=== PATIENT | male | born 1965 | race Caucasian/White ===

== ENCOUNTER 2017-08-19 20:11 | Emergency (ER) | payer MEDICAID ==
[2017-08-19 20:22] VITALS: BP 152/94
[2017-08-19] MEDS ORDERED: MORPHINE SULFATE 10 MG/ML INJ IV ONE (20:32)
[2017-08-19] MEDS ORDERED: NORMAL SALINE 1000 ML 1,000 ML IV ONE (20:32)
--- NOTE | 2017-08-19 20:34 | ER Document Report ---
ED Medical Screen (RME) - General Chief Complaint: Abdominal Pain Stated Complaint: STOMACH PAIN Time Seen by Provider: 08/19/17 20:32 Notes: Patient states she has a history of diverticulitis. He states the last 2 days she has had severe left lower quadrant pain with some dark tarry stool and diarrhea. He is also had some decreased appetite. - Related Data Allergies/Adverse Reactions: codeine [From Tylenol-Codeine #3] Allergy (Verified 08/19/17 20:14) hydrocodone Allergy (Verified 08/19/17 20:14) Physical Exam - Vital signs Vitals: Temp Pulse Resp BP Pulse Ox 99.0 F 104 H 18 152/94 H 96 08/19/17 20:19 08/19/17 20:19 08/19/17 20:19 08/19/17 20:19 08/19/17 20:19 Course - Vital Signs Vital signs: Temp Pulse Resp BP Pulse Ox 99.0 F 104 H 18 152/94 H 96 08/19/17 20:19 08/19/17 20:19 08/19/17 20:19 08/19/17 20:19 08/19/17 20:19
[2017-08-19 21:14] LABS: ABSOLUTE BASOPHILS # (AUTO) 0.1 10^3/uL (0.0-0.2); ABSOLUTE EOSINOPHILS # (AUTO) 0.2 10^3/uL (0.0-0.6); ABSOLUTE LYMPHOCYTES (AUTO) 2.1 10^3/uL (0.5-4.7); ABSOLUTE MONOCYTES (AUTO) 1.1 10^3/uL (0.1-1.4); ABSOLUTE NEUT (AUTO) 11.7 10^3/uL (1.7-8.2); BASOPHILS % (AUTO) 0.4 % (0-2); EOSINOPHILS % (AUTO) 1.3 % (0-6); HEMATOCRIT 45.7 % (37.9-51.0); HEMOGLOBIN 15.2 g/dL (13.5-17.0); LYMPHOCYTES % (AUTO) 13.8 % (13-45); MEAN CORPUSCULAR HEMOGLOBIN 28.3 pg (27.0-33.4); MEAN CORPUSCULAR HGB CONC 33.3 g/dL (32.0-36.0); MEAN CORPUSCULAR VOLUME 85 fl (80-97); MONOCYTES % (AUTO) 7.4 % (3-13); PLATELET COUNT 289 10^3/uL (150-450); RED BLOOD COUNT 5.37 10^6/uL (4.35-5.55); RED CELL DISTRIBUTION WIDTH 14.8 % (11.5-14.0); SEGMENTED NEUTROPHILS % (AUTO) 77.1 % (42-78); TOTAL CELLS COUNTED % (AUTO) 100 %; WHITE BLOOD COUNT 15.2 10^3/uL (4.0-10.5)
[2017-08-19 21:28] LABS: ALANINE AMINOTRANSFERASE 37 U/L (21-72); ALBUMIN 4.2 g/dL (3.5-5.0); ALKALINE PHOSPHATASE 76 U/L (38-126); ANION GAP 13 (5-19); ASPARTATE AMINO TRANSFERASE 22 U/L (17-59); BILIRUBIN,DIRECT 0.4 mg/dL (0.0-0.4); BILIRUBIN,TOTAL 0.7 mg/dL (0.2-1.3); BLOOD UREA NITROGEN 15 mg/dL (7-20); CALCIUM 9.8 mg/dL (8.4-10.2); CARBON DIOXIDE 28 mmol/L (22-30); CHLORIDE 104 mmol/L (98-107); GLUCOSE 108 mg/dL (75-110); POTASSIUM 4.6 mmol/L (3.6-5.0); SODIUM 144.5 mmol/L (137-145); TOTAL PROTEIN 7.7 g/dL (6.3-8.2)
== END 2017-08-19 21:51 | disposition left against medical advice (07) ==
LOC: ER 20:11
DX: Z53.21 Procedure and treatment not carried out due to patient leaving prior to being seen by health care provider (principal); R10.32 Left lower quadrant pain; R19.7 Diarrhea, unspecified; R63.0 Anorexia
CPT/HCPCS: 99281; 36415; 85025; 80053; 74177; J2270; J7030

== ENCOUNTER 2017-08-19 22:56 | Emergency (ER) | payer MEDICAID ==
[2017-08-19] MEDS ORDERED: NORMAL SALINE 1000 ML 1,000 ML IV ONE (22:59)
[2017-08-19 23:19] VITALS: BP 143/94
--- NOTE | 2017-08-20 00:49 | RADIOLOGY REPORT (SQ) ---
EXAM DESCRIPTION: CT ABDOMEN AND PELVIS WITH CONTRAST CLINICAL HISTORY: LLQ pain COMPARISON: None Available. TECHNIQUE: CT of the abdomen and pelvis performed following IV administration of 85 mL of Isovue-370. Delayed images obtained. DLP: 3502.24 mGycm FINDINGS: Lung Bases: The visualized lung bases are clear. Bones: No destructive bone lesions identified. Abdomen: Liver: The liver has normal size and decreased density. No intrahepatic mass or biliary dilatation. Gallbladder: No calcified gallstones. Spleen, Pancreas, and Adrenal Glands: The spleen, pancreas, and adrenal glands are unremarkable. Kidneys: The kidneys have normal size and contour without evidence of solid mass or hydronephrosis. Vasculature: The aorta and IVC have normal caliber and position. The portal vein is patent. The proximal visceral and renal arteries are patent. Stomach: The stomach and duodenum have normal course. Other: No definite free intraperitoneal air. Catheter mildly enlarged left inguinal and left mesenteric lymph nodes are likely reactive. Pelvis: Bladder: Urinary bladder is unremarkable. Bowel: No dilated loops of large or small bowel. Short segment of wall thickening and pericolic fat stranding of the proximal sigmoid colon with diffuse diverticula throughout the colon. No well-circumscribed pericolic fluid collection. Appendix: Normal appendix. Pelvis: Prostate is not enlarged. IMPRESSION: 1. Findings compatible with acute diverticulitis of the proximal sigmoid colon. No well-circumscribed pericolic fluid collection to suggest abscess formation at this time. 2. Hepatic steatosis. This exam was performed according to our departmental dose-optimization program, which includes automated exposure control, adjustment of the mA and/or kV according to patient size and/or use of iterative reconstruction technique.
--- NOTE | 2017-08-20 00:51 | ER Document Report ---
ED GI/ - General Chief Complaint: Abdominal Pain Stated Complaint: ABDOMINAL PAIN Time Seen by Provider: 08/19/17 22:59 Mode of Arrival: Ambulatory Information source: Patient - HPI Patient complains to provider of: Abdominal pain Onset: Other - 4 days Timing/Duration: Gradual, Persistent Quality of pain: Achy, Cramping, Pressure Severity at maximum: Moderate Severity in ED: Moderate Pain Level: 4 Location: LLQ, RLQ Associated symptoms: Diarrhea, Dysuria, Nausea Exacerbated by: Denies Relieved by: Denies Similar symptoms previously: Yes Recently seen / treated by doctor: No Notes: 08/20/17 00:52 Patient is a 52-year-old male presenting to the emergency room today complaining of lower abdominal pain that comes in waves, is consistent with cramping and pressure, as well as dark stools, and dysuria with pink tinge to his urine, symptoms have been going on for the past 4 days and have worsened today, he denies any vomiting, no fevers, history of diverticulitis with similar symptoms in the past - Related Data Allergies/Adverse Reactions: codeine [From Tylenol-Codeine #3] Allergy (Verified 08/19/17 20:14) hydrocodone Allergy (Verified 08/19/17 20:14) Past Medical History - General Information source: Patient - Social History Smoking Status: Unknown if Ever Smoked Family History: Reviewed & Not Pertinent Renal/ Medical History: Denies: Hx Peritoneal Dialysis Review of Systems - Review of Systems Constitutional: No symptoms reported EENT: No symptoms reported Cardiovascular: No symptoms reported Respiratory: No symptoms reported Gastrointestinal: See HPI Genitourinary: See HPI Male Genitourinary: No symptoms reported Musculoskeletal: No symptoms reported Skin: No symptoms reported Hematologic/Lymphatic: No symptoms reported Neurological/Psychological: No symptoms reported -: Yes All other systems reviewed and negative Physical Exam - Vital signs Vitals: Temp Pulse Resp BP Pulse Ox 97.8 F 108 H 18 143/94 H 95 08/19/17 23:16 08/19/17 23:16 08/19/17 23:16 08/19/17 23:16 08/19/17 23:16 Interpretation: Normal - General General appearance: Appears well, Alert - HEENT Head: Normocephalic, Atraumatic Eyes: Normal Pupils: PERRL - Respiratory Respiratory status: No respiratory distress Chest status: Nontender Breath sounds: Normal Chest palpation: Normal - Cardiovascular Rhythm: Regular Heart sounds: Normal auscultation Murmur: No - Abdominal Inspection: Obese Distension: No distension Bowel sounds: Normal Tenderness: Tender - Mild tenderness across lower abdomen Organomegaly: No organomegaly - Back Back: Normal, Nontender - Extremities General upper extremity: Normal inspection, Nontender, Normal color, Normal ROM , Normal temperature General lower extremity: Normal inspection, Nontender, Normal color, Normal ROM , Normal temperature, Normal weight bearing. No: Ranjeet's sign - Neurological Neuro grossly intact: Yes Cognition: Normal Orientation: AAOx4 Breanna Coma Scale Eye Opening: Spontaneous Breanna Coma Scale Verbal: Oriented [place] Coma Scale Motor: Obeys Commands [place] Coma Scale Total: 15 Speech: Normal Motor strength normal: LUE, RUE, LLE, RLE Sensory: Normal - Psychological Associated symptoms: Normal affect, Normal mood - Skin Skin Temperature: Warm Skin Moisture: Dry Skin Color: Normal Course - Re-evaluation Re-evalutation: 08/20/17 00:54 Patient was seen in the emergency room earlier today, had to leave secondary to family emergency, has returned to have CT scan done, consistent with diverticulitis, will be started on antibiotics and be provided with instructions for follow-up, advised to return if symptoms worsen, patient acknowledges understanding and agreement with this plan - Vital Signs Vital signs: Temp Pulse Resp BP Pulse Ox 97.8 F 108 H 18 143/94 H 95 08/19/17 23:16 08/19/17 23:16 08/19/17 23:16 08/19/17 23:16 08/19/17 23:16 - Laboratory Laboratory results interpreted by me: 08/20/17 01:00 Urine Urobilinogen 2.0 H - Diagnostic Test Radiology reviewed: Image reviewed, Reports reviewed Discharge - Discharge Clinical Impression: Acute diverticulitis Condition: Stable Disposition: HOME, SELF-CARE Instructions: Diverticulitis ([facility]) Additional Instructions: Follow up with your primary care provider in one to 2 days. Return to the emergency room immediately if symptoms worsen or any additional concerns. Prescriptions: Ciprofloxacin HCl [Cipro 500 mg Tablet] 500 mg PO BID #20 tablet Hydrocodone/Acetaminophen [Hydrocodon-Acetaminophen 5-325] 1 each PO Q6 #20 tablet Metronidazole [Flagyl 500 mg Tablet] 500 mg PO TID #30 tablet Oxycodone HCl/Acetaminophen [Percocet 5-325 mg Tablet] 1 - 2 tab PO ASDIR PRN # 15 tablet PRN Reason:
[2017-08-20] MEDS ORDERED: METRONIDAZOLE 500 MG TABLET PO ONE (00:55)
[2017-08-20] MEDS ORDERED: CIPROFLOXACIN HCL 500 MG TABLET PO ONE (00:55)
[2017-08-20] MEDS ORDERED: HYDROCODONE/ACETAMINOPHEN 5-325 MG TABLET PO ONE (00:58)
[2017-08-20 01:35] LABS: APPEARANCE,URINE CLEAR; BILIRUBIN,URINE NEGATIVE (NEGATIVE); COLOR,URINE YELLOW; GLUCOSE, URINE NEGATIVE (NEGATIVE); KETONES,URINE NEGATIVE (NEGATIVE); LEUKOCYTE ESTERASE,URINE NEGATIVE (NEGATIVE); NITRITE,URINE NEGATIVE (NEGATIVE); PROTEIN,URINE NEGATIVE (NEGATIVE)
[2017-08-20 01:41] LABS: URINE SPECIFIC GRAVITY > 1.060
[2017-08-20] MEDS ORDERED: HYDROCODONE/ACETAMINOPHEN 5-325 MG (6 TAB/ER DISP) PO PRN (01:48)
== END 2017-08-20 02:13 | disposition home or self-care (01) ==
LOC: ER 22:56
DX: K57.92 Diverticulitis of intestine, part unspecified, without perforation or abscess without bleeding (principal); R10.30 Lower abdominal pain, unspecified
CPT/HCPCS: 99284; 96360; 81001; 74177; J3490 ×2; J7030

== ENCOUNTER 2017-09-15 19:04 | Emergency (ER) | payer MEDICAID ==
[2017-09-15 19:09] VITALS: BP 143/87
[2017-09-15] MEDS ORDERED: DEXAMETHASONE SOD PHOS INJ 10 MG/1 ML VIAL IM ONE (20:12)
[2017-09-15] MEDS ORDERED: KETOROLAC TROMETHAMINE INJ/PF 30 MG/1 ML SDV IM ONE (20:12)
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
--- NOTE | 2017-09-15 21:15 | RADIOLOGY REPORT (SQ) ---
EXAM DESCRIPTION: T SPINE AP/LAT COMPLETED DATE/TIME: 09/15/2017 8:32 pm REASON FOR STUDY: Exacerbation of chronic back pain COMPARISON: None. NUMBER OF VIEWS: Two views. TECHNIQUE: AP and lateral radiographic images acquired of the thoracic spine. LIMITATIONS: None. FINDINGS: MINERALIZATION: Normal. ALIGNMENT: Normal. No scoliosis. VERTEBRAE: No fracture or bone lesion. Maintained height, normal segmentation. DISCS: Multilevel disc space narrowing with osteophytes. HARDWARE: None in the spine. MEDIASTINUM AND SOFT TISSUES: Normal heart size and aortic contour. No soft tissue abnormality. VISUALIZED LUNG VALVERDE: Clear. OTHER: No other significant finding. IMPRESSION: SPONDYLOSIS WITHOUT BONE LESION OR FRACTURE. TECHNICAL DOCUMENTATION: JOB ID: [id number] [employer]- All Rights Reserved Reading location - IP/workstation name: [email or web address]
--- NOTE | 2017-09-15 21:17 | RADIOLOGY REPORT (SQ) ---
EXAM DESCRIPTION: L SPINE WHOLE COMPLETED DATE/TIME: 09/15/2017 8:32 pm REASON FOR STUDY: Exacerbation of chronic back pain COMPARISON: 08/20/2017 CT NUMBER OF VIEWS: Five views including obliques. TECHNIQUE: AP, lateral, oblique, and sacral radiographic images acquired of the lumbar spine. LIMITATIONS: None. FINDINGS: MINERALIZATION: Normal. SEGMENTATION: Normal. No transitional anatomy. ALIGNMENT: Minimal degenerative anterolisthesis of L4 on L5. VERTEBRAE: Maintained height. No fracture or worrisome bone lesion. DISCS: Multilevel disc space narrowing with osteophytes. POSTERIOR ELEMENTS: Pedicles and facets are intact. No pars defect or posterior arch defects. Facet arthropathy is present. HARDWARE: None in the spine. PARASPINAL SOFT TISSUES: Normal. PELVIS: Intact as visualized. No fractures or worrisome bone lesions. SI joints intact. OTHER: No other significant finding. IMPRESSION: SPONDYLOSIS WITHOUT BONE LESION OR FRACTURE. TECHNICAL DOCUMENTATION: JOB ID: [id number] [employer]- All Rights Reserved Reading location - IP/workstation name: [email or web address]
== END 2017-09-15 21:40 | disposition home or self-care (01) ==
LOC: ER 19:04
DX: M54.6 Pain in thoracic spine (principal); M54.5 Low back pain; G89.29 Other chronic pain; Z88.6 Allergy status to analgesic agent; I10 Essential (primary) hypertension
CPT/HCPCS: 99283; 96372; 72110; 72070; J1885; J1100

== ENCOUNTER 2017-09-29 12:37 | Emergency (ER) | payer MEDICAID ==
[2017-09-29 12:45] VITALS: BP 158/102
[2017-09-29] MEDS ORDERED: KETOROLAC TROMETHAMINE INJ/PF 30 MG/1 ML SDV IM ONE (12:56)
--- NOTE | 2017-09-29 12:59 | ER Document Report ---
HPI - HPI Pain Level: 3 Notes: Patient is a 52-year-old male who presents to the ED complaining of right lateral hand pain status post injury 2 days ago. Patient states he is trying to break up a dog fight when he was punching his dog. His dog. He denies being bit or scratched at the time. Patient states that he has pain in and surrounding his thumb. Patient states that movement of the thumb makes the pain worse. He has been using a splint which does seem to help a little bit. He has not noticed any obvious swelling, bruising, or redness. He has no other concerns or complaints at this time. Denies any headache, fever, neck pain, URI , sore throat, chest pain, palpitations, syncope, cough, shortness of breath, wheeze, dyspnea, abdominal pain, nausea/vomiting/diarrhea, urinary retention, dysuria, hematuria, numbness/tingling, muscle paralysis, or rash. - ROS Systems Reviewed and Negative: Yes All other systems reviewed and negative Past Medical History - Social History Smoking Status: Never Smoker Family History: Arthritis, CAD, COPD, CVA, Malignancy - Past Medical History Cardiac Medical History: Reports: Hx Hypertension Neurological Medical History: Reports: Hx Migraine Renal/ Medical History: Reports: Hx Testicular Torsion. Denies: Hx Peritoneal Dialysis GI Medical History: Reports: Hx Diverticulitis, Hx Gastritis, Hx Ulcer, Hx Endoscopy Musculoskeltal Medical History: Reports Hx Arthritis, Reports Hx Musculoskeletal Deformity, Reports Hx Musculoskeletal Trauma Psychiatric Medical History: Reports: Hx Anxiety, Hx Depression Traumatic Medical History: Reports: Hx Fractures Past Surgical History: Reports: Hx Orthopedic Surgery - Surgery to right ankle foot infection left knee surgery, Hx Testicular Surgery - Testicular torsion, Other - Aspiration from pericardial effusion Vertical Provider Document - CONSTITUTIONAL Agree With Documented VS: Yes Notes: PHYSICAL EXAMINATION: GENERAL: Well-appearing, well-nourished and in no acute distress. LUNGS: Breath sounds clear to auscultation bilaterally and equal. No wheezes rales or rhonchi. HEART: Regular rate and rhythm without murmurs, rubs, gallops. Musculoskeletal: Rt thumb/hand: LROM to passive/active due to pain. Strength 4+ /5. + tenderness to the thenar eminence area and + [place]. No other bony tenderness of the hand including the scaphoid. Gamekeeper negative. N/V intact distal. Extremities: No cyanosis, clubbing, or edema b/l. Peripheral pulses 2+. Capillary refill less than 3 seconds. NEUROLOGICAL: Normal speech, normal gait. Normal sensory, motor exams PSYCH: Normal mood, normal affect. SKIN: Warm, Dry, normal turgor, no rashes or lesions noted. - INFECTION CONTROL TRAVEL OUTSIDE OF THE [place] IN LAST 30 DAYS: No Course - Re-evaluation Re-evalutation: 09/29/17 14:05 Patient is an afebrile, well-hydrated, 52-year-old male who presents to the ED with right thumb pain, suspect strain, but x-ray showed oval bone fragment which radiologist is not sure if this is acute or not at this time. Vitals are acceptable. PE is otherwise unremarkable for any neurovascular compromise. See x-ray result. Thumb spica was ordered as precautionary. Toradol given IM today. Recommend conservative measures for symptoms. Call orthopedics to schedule an appointment for further evaluation and management this week. Return to the ED with any worsening/concerning symptoms otherwise as reviewed discharge. Recheck with your PCM in 3-5 days as well. Patient is in agreement. - Vital Signs Vital signs: Temp Pulse Resp BP Pulse Ox 98.7 F 97 18 158/102 H 96 09/29/17 12:44 09/29/17 12:44 09/29/17 12:44 09/29/17 12:44 09/29/17 12:44 Procedures - Immobilization Right Thumb Time completed: 14:05 Pre-Proc Neuro Vasc Exam: Normal Immobilizer type: Thumb spica Performed by: PCT Post-Proc Neuro Vasc Exam: Normal, Unchanged from pre-exam Discharge - Discharge Clinical Impression: Pain of right thumb Condition: Stable Disposition: HOME, SELF-CARE Additional Instructions: Rest, Ice, Compression, Elevation Use splint as directed Tylenol/ibuprofen as needed Light stretches daily Strength exercises as able Moist heat and massage may help F/u with your PCP in 3-5 days for a recheck Call orthopedics today to schedule an appointment for further evaluation and management Return to the ED with any worsening symptoms and/or development of fever, headache, chest pain, palpitations, syncope, shortness of breath, trouble breathing, abdominal pain, n/v/d, muscle weakness/paralysis, numbness/tingling, swelling, redness, or other worsening symptoms that are concerning to you. Prescriptions: Naproxen 500 mg PO BID PRN #30 tablet PRN Reason: Forms: Elevated Blood Pressure Referrals: [facility] [Provider Group] - Follow up in 3-5 days
--- NOTE | 2017-09-29 13:30 | RADIOLOGY REPORT (SQ) ---
EXAM DESCRIPTION: HAND RIGHT 3 VIEWS COMPLETED DATE/TIME: 09/29/2017 1:15 pm REASON FOR STUDY: rt lateral hand pain s/p injury COMPARISON: None. EXAM PARAMETERS: NUMBER OF VIEWS: Three views. TECHNIQUE: AP, lateral and oblique radiographic images acquired of the right hand. LIMITATIONS: None. FINDINGS: There is an oval bone fragment along the volar margin of the base of the 1st metacarpal. This is probably a normal variant. Correlate clinically with palpation of this area. Consider CT or MRI if suspicion of avulsion fracture here. IMPRESSION: See above. TECHNICAL DOCUMENTATION: JOB ID: [id number] [employer]- All Rights Reserved Reading location - IP/workstation name: [email or web address]
[2017-09-29] MEDS ORDERED: HYDROCODONE/ACETAMINOPHEN 7.5-325 MG TABLET PO ONE (14:00)
== END 2017-09-29 14:08 | disposition home or self-care (01) ==
LOC: ER 12:37
DX: M79.644 Pain in right finger(s) (principal); W22.8XXA Striking against or struck by other objects, initial encounter; Y93.K9 Activity, other involving animal care; I10 Essential (primary) hypertension
CPT/HCPCS: 99283; 96372; 73130; 29125; J1885

== ENCOUNTER 2017-10-13 11:16 | Day surgery (SDC) | payer MEDICAID ==
[2017-10-13] MEDS ORDERED: PROPOFOL INJ 200 MG/20 ML VIAL IV ONE (11:17)
[2017-10-13] MEDS ORDERED: PROMETHAZINE HCL INJ 25 MG/1 ML VIAL IV PRN (14:44)
[2017-10-13] MEDS ORDERED: DIPHENHYDRAMINE HCL 50 MG/ML VIAL IV PRN (14:44)
--- NOTE | 2017-10-13 15:05 | Operative Report ---
Operative Report DATE OF SURGERY: 10/13/17 Operative Report: The risks, benefits and alternatives of the procedure including risks of bleeding, perforation requiring surgery are explained to the patient in detail and informed consent was obtained. Patient is taken back to the operating room and placed in a left, lateral decubital position. Timeout was called. Propofol medications administered. A rectal examination is done which did not reveal any masses, tears or fissures. An Olympus videoscope was inserted into the patient's rectum. The scope was then carefully advanced all the way to the cecum. The cecum was identified by the usual anatomical landmarks including the ileocecal valve as well as the appendiceal office. Photodocumentation is obtained. The scope was then sequentially pulled back via the rest segments of the colon including the ascending colon, hepatic flexure, transverse colon, splenic flexure, descending colon and finally into the rectosigmoid portions of the colon. Retroflexion maneuvers performed. PREOPERATIVE DIAGNOSIS: Colorectal cancer screening POSTOPERATIVE DIAGNOSIS: Colon polyp removed via snare polypectomy. Diverticulosis. Internal hemorrhoids OPERATION: Colonoscopy with snare polypectomy SURGEON: JULIA MARTÍNEZ ANESTHESIA: LMAC TISSUE REMOVED OR ALTERED: As noted above. COMPLICATIONS: None. ESTIMATED BLOOD LOSS: None. INTRAOPERATIVE FINDINGS: As noted above. PROCEDURE: Patient tolerated the procedure well. No immediate postprocedure complications are noted. Patient discharged in good condition. Discharge date 10/13/2017. Discharge diet: Regular. Discharge activity: Regular. 2-3 week follow-up to discuss findings. Patient is instructed call the office or proceed to the emergency room should there be any further problems or questions. We will wait on pathology. 5 year surveillance colonoscopy.
[2017-10-13 16:44] VITALS: BP 132/80
== END 2017-10-13 16:20 | disposition home or self-care (01) ==
LOC: OROUT 11:16
PROVIDERS: ATTEND Internal Medicine Gastroenterology
DX: Z12.11 Encounter for screening for malignant neoplasm of colon (principal); K57.30 Diverticulosis of large intestine without perforation or abscess without bleeding; K64.8 Other hemorrhoids; D12.5 Benign neoplasm of sigmoid colon; F33.1 Major depressive disorder, recurrent, moderate; E66.9 Obesity, unspecified; I10 Essential (primary) hypertension; Z79.899 Other long term (current) drug therapy; Z79.1 Long term (current) use of non-steroidal anti-inflammatories (NSAID); Z88.5 Allergy status to narcotic agent; Z68.43 Body mass index [BMI] 50.0-59.9, adult
CPT/HCPCS: 45385; 88305 ×2; J2704; 811

== ENCOUNTER 2017-11-04 12:46 | Inpatient (IN) | payer MEDICAID ==
[2017-11-04] MEDS ORDERED: NALOXONE HCL INJ 2 MG/2 ML DISP.SYRIN ONE ×2 (12:49→15:26)
--- NOTE | 2017-11-04 13:40 | ER Document Report ---
ED General - General Chief Complaint: Overdose Stated Complaint: POSSIBLE OVERDOSE Time Seen by Provider: 11/04/17 12:51 Mode of Arrival: Medic Information source: Relative, Emergency Med Personnel, [facility] Records Cannot obtain history due to: Altered mental status Notes: 52-year-old male presents via EMS from home after being found unresponsive by the family. Per EMS patient was found with an oxygen saturation of 40%. Narcan was administered with improvement of oxygen saturation. Upon patient's arrival to the emergency department he is on a nonrebreather, unresponsive but breathing spontaneously. Per EMS the patient takes Krathom, gabapentin. No family at the bedside initially. TRAVEL OUTSIDE OF THE [place] IN LAST 30 DAYS: No - Related Data Allergies/Adverse Reactions: codeine [From Tylenol-Codeine #3] Allergy (Verified 11/04/17 12:58) hydrocodone Allergy (Verified 11/04/17 12:58) Past Medical History - General Information source: Relative, Emergency Med Personnel, [facility] Records Cannot obtain history due to: Altered mental status - Social History Smoking Status: Unknown if Ever Smoked Frequency of alcohol use: Heavy Drug Abuse: Marijuana, Other - radha Lives with: Family, Spouse/Significant other Family History: Arthritis, CAD, COPD, CVA, Malignancy Patient has suicidal ideation: No Patient has homicidal ideation: No - Past Medical History Cardiac Medical History: Reports: Hx Hypertension Denies: Hx Coronary Artery Disease, Hx Heart Attack Pulmonary Medical History: Denies: Hx Asthma, Hx Bronchitis, Hx COPD, Hx Pneumonia Neurological Medical History: Reports: Hx Migraine. Denies: Hx Seizures Renal/ Medical History: Reports: Hx Testicular Torsion. Denies: Hx Peritoneal Dialysis GI Medical History: Reports: Hx Diverticulitis, Hx Gastritis, Hx Ulcer, Hx Endoscopy Musculoskeltal Medical History: Reports Hx Arthritis - KNEE, Reports Hx Musculoskeletal Deformity, Reports Hx Musculoskeletal Trauma Psychiatric Medical History: Reports: Hx Anxiety, Hx Depression Traumatic Medical History: Reports: Hx Fractures Past Surgical History: Reports: Hx Orthopedic Surgery - Surgery to right ankle foot infection left knee surgery, Hx Testicular Surgery - Testicular torsion, Other - Aspiration from pericardial effusion - Immunizations Hx Diphtheria, Pertussis, Tetanus Vaccination: Yes Review of Systems - Review of Systems -: Yes ROS unobtainable due to patient's medical condition Physical Exam - Vital signs Vitals: Resp BP Pulse Ox 26 H 182/165 H 98 11/04/17 13:06 11/04/17 13:06 11/04/17 13:06 Interpretation: Hypertensive, Hypoxic - Notes Notes: PHYSICAL EXAMINATION: GENERAL: Unresponsive, breathing spontaneously, responds to painful stimuli. Morbidly obese HEAD: Atraumatic, normocephalic. EYES: Pupils equal round and reactive to light, extraocular movements intact, sclera anicteric, conjunctiva are normal. ENT: Nares patent, oropharynx clear without exudates. Moist mucous membranes. NECK: Normal range of motion, supple without lymphadenopathy LUNGS: Breath sounds clear to auscultation bilaterally and equal. No wheezes rales or rhonchi. HEART: Regular rate and rhythm without murmurs ABDOMEN: Soft, nontender, nondistended abdomen. No guarding, no rebound. No masses appreciated. Musculoskeletal: Normal range of motion, no pitting or edema. No cyanosis. NEUROLOGICAL: GCS-10 PSYCH: Normal mood, normal affect. SKIN: Warm, Dry, normal turgor, no rashes or lesions noted. Course - Re-evaluation Re-evalutation: Laboratory 11/04/17 11/04/17 11/04/17 12:04 12:04 12:54 WBC RBC Hgb Hct MCV MCH MCHC RDW Plt Count Total Counted Seg Neutrophils % Seg Neuts % (Manual) Band Neutrophils % Lymphocytes % Lymphocytes % (Manual) Monocytes % Monocytes % (Manual) Eosinophils % Eosinophils % (Manual) Basophils % Basophils % (Manual) Absolute Neutrophils Abs Neuts (Manual) Absolute Lymphocytes Abs Lymphs (Manual) Absolute Monocytes Abs Monocytes (Manual) Absolute Eosinophils Absolute Eos (Manual) Absolute Basophils Abs Basophils (Manual) Large Platelets Platelet Comment Hypochromasia Anisocytosis PT 14.3 INR 1.06 APTT 32.9 Sodium 145.4 H Potassium 4.9 Chloride 101 Carbon Dioxide 26 Anion Gap 18 BUN 22 H Creatinine 1.84 H Est GFR ( Amer) 47 L Est GFR (Non-Af Amer) 39 L Glucose 255 H Lactic Acid Calcium 9.1 Total Bilirubin 0.4 Direct Bilirubin 0.4 Neonat Total Bilirubin Not Reportable Neonat Direct Bilirubin Not Reportable Neonat Indirect Bili Not Reportable AST 116 H ALT 95 H Alkaline Phosphatase 64 Creatine Kinase 57 CK-MB (CK-2) 2.19 Troponin I 0.184 NT-Pro-B Natriuret Pep 499 Total Protein 7.1 Albumin 4.1 Urine Color Urine Appearance Urine pH Ur Specific [place] Urine Protein Urine Glucose (UA) Urine Ketones Urine Blood Urine Nitrite Urine Bilirubin Urine Urobilinogen Ur Leukocyte Esterase Urine WBC (Auto) Urine RBC (Auto) Urine Mucus (Auto) Urine Ascorbic Acid Salicylates < 1.0 L Urine Opiates Screen Urine Methadone Screen Acetaminophen Ur Barbiturates Screen Ur Phencyclidine Scrn Ur Amphetamines Screen U Benzodiazepines Scrn Urine Cocaine Screen U Marijuana (THC) Screen Serum Alcohol < 10 11/04/17 11/04/17 11/04/17 12:54 13:07 15:05 WBC 23.4 H RBC 4.90 Hgb 14.1 Hct 43.8 MCV 89 MCH 28.8 MCHC 32.2 RDW 16.4 H Plt Count 309 Total Counted 100 Seg Neutrophils % Not Reportable Seg Neuts % (Manual) 83 H Band Neutrophils % 9 H Lymphocytes % Not Reportable Lymphocytes % (Manual) 2 L Monocytes % Not Reportable Monocytes % (Manual) 6 Eosinophils % Not Reportable Eosinophils % (Manual) 0 Basophils % Not Reportable Basophils % (Manual) 0 Absolute Neutrophils Not Reportable Abs Neuts (Manual) 21.5 H Absolute Lymphocytes Not Reportable Abs Lymphs (Manual) 0.5 Absolute Monocytes Not Reportable Abs Monocytes (Manual) 1.4 Absolute Eosinophils Not Reportable Absolute Eos (Manual) 0.0 Absolute Basophils Not Reportable Abs Basophils (Manual) 0.0 Large Platelets PRESENT Platelet Comment ADEQUATE Hypochromasia SLIGHT Anisocytosis 1+ PT INR APTT Sodium Potassium Chloride Carbon Dioxide Anion Gap BUN Creatinine Est GFR ( Amer) Est GFR (Non-Af Amer) Glucose Lactic Acid 5.3 H Calcium Total Bilirubin Direct Bilirubin Neonat Total Bilirubin Neonat Direct Bilirubin Neonat Indirect Bili AST ALT Alkaline Phosphatase Creatine Kinase CK-MB (CK-2) Troponin I NT-Pro-B Natriuret Pep Total Protein Albumin Urine Color YELLOW Urine Appearance CLEAR Urine pH 5.0 Ur Specific [place] 1.021 Urine Protein NEGATIVE Urine Glucose (UA) NEGATIVE Urine Ketones NEGATIVE Urine Blood NEGATIVE Urine Nitrite NEGATIVE Urine Bilirubin NEGATIVE Urine Urobilinogen NEGATIVE Ur Leukocyte Esterase NEGATIVE Urine WBC (Auto) 0 Urine RBC (Auto) 1 Urine Mucus (Auto) RARE Urine Ascorbic Acid NEGATIVE Salicylates Urine Opiates Screen Urine Methadone Screen Acetaminophen Ur Barbiturates Screen Ur Phencyclidine Scrn Ur Amphetamines Screen U Benzodiazepines Scrn Urine Cocaine Screen U Marijuana (THC) Screen Serum Alcohol 11/04/17 11/04/17 11/04/17 15:05 15:51 15:51 WBC RBC Hgb Hct MCV MCH MCHC RDW Plt Count Total Counted Seg Neutrophils % Seg Neuts % (Manual) Band Neutrophils % Lymphocytes % Lymphocytes % (Manual) Monocytes % Monocytes % (Manual) Eosinophils % Eosinophils % (Manual) Basophils % Basophils % (Manual) Absolute Neutrophils Abs Neuts (Manual) Absolute Lymphocytes Abs Lymphs (Manual) Absolute Monocytes Abs Monocytes (Manual) Absolute Eosinophils Absolute Eos (Manual) Absolute Basophils Abs Basophils (Manual) Large Platelets Platelet Comment Hypochromasia Anisocytosis PT INR APTT Sodium Cancelled Potassium Cancelled Chloride Cancelled Carbon Dioxide Cancelled Anion Gap Cancelled BUN Cancelled Creatinine Cancelled Est GFR ( Amer) Cancelled Est GFR (Non-Af Amer) Cancelled Glucose Cancelled Lactic Acid Calcium Cancelled Total Bilirubin Direct Bilirubin Neonat Total Bilirubin Neonat Direct Bilirubin Neonat Indirect Bili AST ALT Alkaline Phosphatase Creatine Kinase CK-MB (CK-2) Troponin I Cancelled NT-Pro-B Natriuret Pep Total Protein Albumin Urine Color Urine Appearance Urine pH Ur Specific [place] Urine Protein Urine Glucose (UA) Urine Ketones Urine Blood Urine Nitrite Urine Bilirubin Urine Urobilinogen Ur Leukocyte Esterase Urine WBC (Auto) Urine RBC (Auto) Urine Mucus (Auto) Urine Ascorbic Acid Salicylates Urine Opiates Screen NEGATIVE Urine Methadone Screen NEGATIVE Acetaminophen Cancelled Ur Barbiturates Screen NEGATIVE Ur Phencyclidine Scrn NEGATIVE Ur Amphetamines Screen NEGATIVE U Benzodiazepines Scrn NEGATIVE Urine Cocaine Screen NEGATIVE U Marijuana (THC) Screen UNCONFIRMED POSITIVE Serum Alcohol 11/04/17 11/04/17 11/04/17 15:51 16:45 16:45 WBC RBC Hgb Hct MCV MCH MCHC RDW Plt Count Total Counted Seg Neutrophils % Seg Neuts % (Manual) Band Neutrophils % Lymphocytes % Lymphocytes % (Manual) Monocytes % Monocytes % (Manual) Eosinophils % Eosinophils % (Manual) Basophils % Basophils % (Manual) Absolute Neutrophils Abs Neuts (Manual) Absolute Lymphocytes Abs Lymphs (Manual) Absolute Monocytes Abs Monocytes (Manual) Absolute Eosinophils Absolute Eos (Manual) Absolute Basophils Abs Basophils (Manual) Large Platelets Platelet Comment Hypochromasia Anisocytosis PT INR APTT Sodium Potassium Chloride Carbon Dioxide Anion Gap BUN Creatinine Est GFR ( Amer) Est GFR (Non-Af Amer) Glucose Lactic Acid Cancelled 3.9 H Calcium Total Bilirubin Direct Bilirubin Neonat Total Bilirubin Neonat Direct Bilirubin Neonat Indirect Bili AST ALT Alkaline Phosphatase Creatine Kinase CK-MB (CK-2) Troponin I Cancelled NT-Pro-B Natriuret Pep Total Protein Albumin Urine Color Urine Appearance Urine pH Ur Specific [place] Urine Protein Urine Glucose (UA) Urine Ketones Urine Blood Urine Nitrite Urine Bilirubin Urine Urobilinogen Ur Leukocyte Esterase Urine WBC (Auto) Urine RBC (Auto) Urine Mucus (Auto) Urine Ascorbic Acid Salicylates Urine Opiates Screen Urine Methadone Screen Acetaminophen Ur Barbiturates Screen Ur Phencyclidine Scrn Ur Amphetamines Screen U Benzodiazepines Scrn Urine Cocaine Screen U Marijuana (THC) Screen Serum Alcohol 11/04/17 11/04/17 11/04/17 16:45 17:11 17:11 WBC RBC Hgb Hct MCV MCH MCHC RDW Plt Count Total Counted Seg Neutrophils % Seg Neuts % (Manual) Band Neutrophils % Lymphocytes % Lymphocytes % (Manual) Monocytes % Monocytes % (Manual) Eosinophils % Eosinophils % (Manual) Basophils % Basophils % (Manual) Absolute Neutrophils Abs Neuts (Manual) Absolute Lymphocytes Abs Lymphs (Manual) Absolute Monocytes Abs Monocytes (Manual) Absolute Eosinophils Absolute Eos (Manual) Absolute Basophils Abs Basophils (Manual) Large Platelets Platelet Comment Hypochromasia Anisocytosis PT INR APTT Sodium Cancelled Cancelled Potassium Cancelled Cancelled Chloride Cancelled Cancelled Carbon Dioxide Cancelled Cancelled Anion Gap Cancelled Cancelled BUN Cancelled Cancelled Creatinine Cancelled Cancelled Est GFR ( Amer) Cancelled Cancelled Est GFR (Non-Af Amer) Cancelled Cancelled Glucose Cancelled Cancelled Lactic Acid Cancelled Calcium Cancelled Cancelled Total Bilirubin Direct Bilirubin Neonat Total Bilirubin Neonat Direct Bilirubin Neonat Indirect Bili AST ALT Alkaline Phosphatase Creatine Kinase CK-MB (CK-2) Troponin I NT-Pro-B Natriuret Pep Total Protein Albumin Urine Color Urine Appearance Urine pH Ur Specific [place] Urine Protein Urine Glucose (UA) Urine Ketones Urine Blood Urine Nitrite Urine Bilirubin Urine Urobilinogen Ur Leukocyte Esterase Urine WBC (Auto) Urine RBC (Auto) Urine Mucus (Auto) Urine Ascorbic Acid Salicylates Urine Opiates Screen Urine Methadone Screen Acetaminophen Cancelled Cancelled Ur Barbiturates Screen Ur Phencyclidine Scrn Ur Amphetamines Screen U Benzodiazepines Scrn Urine Cocaine Screen U Marijuana (THC) Screen Serum Alcohol 11/04/17 11/04/17 11/04/17 17:11 18:00 18:00 WBC RBC Hgb Hct MCV MCH MCHC RDW Plt Count Total Counted Seg Neutrophils % Seg Neuts % (Manual) Band Neutrophils % Lymphocytes % Lymphocytes % (Manual) Monocytes % Monocytes % (Manual) Eosinophils % Eosinophils % (Manual) Basophils % Basophils % (Manual) Absolute Neutrophils Abs Neuts (Manual) Absolute Lymphocytes Abs Lymphs (Manual) Absolute Monocytes Abs Monocytes (Manual) Absolute Eosinophils Absolute Eos (Manual) Absolute Basophils Abs Basophils (Manual) Large Platelets Platelet Comment Hypochromasia Anisocytosis PT INR APTT Sodium 143.2 Potassium 7.0 H* D Chloride 105 Carbon Dioxide 26 Anion Gap 12 BUN 25 H Creatinine 1.94 H Est GFR ( Amer) 44 L Est GFR (Non-Af Amer) 36 L Glucose 178 H Lactic Acid Calcium 8.3 L Total Bilirubin Direct Bilirubin Neonat Total Bilirubin Neonat Direct Bilirubin Neonat Indirect Bili AST ALT Alkaline Phosphatase Creatine Kinase CK-MB (CK-2) Troponin I Cancelled 0.877 NT-Pro-B Natriuret Pep Total Protein Albumin Urine Color Urine Appearance Urine pH Ur Specific [place] Urine Protein Urine Glucose (UA) Urine Ketones Urine Blood Urine Nitrite Urine Bilirubin Urine Urobilinogen Ur Leukocyte Esterase Urine WBC (Auto) Urine RBC (Auto) Urine Mucus (Auto) Urine Ascorbic Acid Salicylates Urine Opiates Screen Urine Methadone Screen Acetaminophen < 10 L Ur Barbiturates Screen Ur Phencyclidine Scrn Ur Amphetamines Screen U Benzodiazepines Scrn Urine Cocaine Screen U Marijuana (THC) Screen Serum Alcohol Head CT 11/04/17 13:36 IMPRESSION: NORMAL BRAIN CT WITHOUT CONTRAST. EVIDENCE OF ACUTE STROKE: NO. Chest X-Ray 11/04/17 15:24 IMPRESSION: Cardiomegaly without robel pulmonary edema. Low lung volumes. 52-year-old male presents via EMS from home after being found unresponsive by the family. Per EMS patient was found with an oxygen saturation of 40%. Narcan was administered with improvement of oxygen saturation. Upon patient's arrival to the emergency department he is on a nonrebreather, unresponsive but breathing spontaneously. Per EMS the patient takes Krathom, gabapentin. No family at the bedside initially. 11/04/17 14:57 Patient now more easily awoken. He denies intentional overdose and was just trying to go to sleep. Patient denies any current chest pain but states that he was experiencing chest pain a few days ago which he ignored and it self resolved. Patient found to have an elevated troponin, lactic acid, BUN and creatinine. Patient was given rectal aspirin, Lovenox and IV fluids. Repeat labs pending. 11/04/17 15:40 Levophed initiated for persisent hypotension. Patient has pulled out two IVs. states his low back is bothering him. 11/04/17 16:22 Patient's blood pressure improved. Repeat troponin and lactic acid pending. 11/04/17 16:25 Spoke to poison control who advises supportive care. They believe if the patient's symptoms are due to the kratom that the observation time is approximately 6 hours. It is unclear what the patient took. is at the bedside and states that he has been drinking heavily and taking handfuls of Kratom at a time. Patient's other medications include gabapentin and lisinopril. She reports the patient had an episode of vomiting yesterday. But does not know whether he was having chest pain. She denies any other medications at home. 11/04/17 18:50 Art-line attempted but unsuccessful. Surgery consulted. Patient accepted by the hospitalist to the ICU. 11/04/17 22:20 - Vital Signs Vital signs: Temp Pulse Resp BP Pulse Ox 99.0 F 88 18 127/106 H 100 11/04/17 19:12 11/04/17 19:12 11/04/17 21:03 11/04/17 19:12 11/04/17 21:03 - Laboratory Result Diagrams: 11/04/17 12:54 11/04/17 18:00 Laboratory results interpreted by me: 11/04/17 11/04/17 11/04/17 12:04 12:54 13:07 WBC 23.4 H RDW 16.4 H Seg Neuts % (Manual) 83 H Band Neutrophils % 9 H Lymphocytes % (Manual) 2 L Abs Neuts (Manual) 21.5 H Sodium 145.4 H BUN 22 H Creatinine 1.84 H Est GFR ( Amer) 47 L Est GFR (Non-Af Amer) 39 L Glucose 255 H Lactic Acid 5.3 H AST 116 H ALT 95 H Salicylates < 1.0 L - Diagnostic Test Radiology reviewed: Image reviewed, Reports reviewed - EKG Interpretation by Me EKG shows normal: Sinus rhythm Rate: Normal Rhythm: NSR When compared to previous EKG there are: No significant change Critical Care Note - Critical Care Note Total time excluding time spent on procedures (mins): 45 - minutes of critical care time spent in direct contact evaluating and reevaluating the patient, treating symptoms, reviewing labs and studies and speaking with family and consultants excluding any procedures Discharge - Discharge Clinical Impression: Elevated troponin, JHON (acute kidney injury), NSTEMI (non-ST elevated myocardial infarction) Altered mental status Qualifiers: Altered mental status type: somnolence Qualified Code(s): R40.0 - Somnolence Medication overdose Qualifiers: Encounter type: initial encounter Injury intent: undetermined intent Qualified Code(s): T50.904A - Poisoning by unspecified drugs, medicaments and biological substances, undetermined, initial encounter Hypotension Qualifiers: Hypotension type: other hypotension type Qualified Code(s): I95.89 - Other hypotension Condition: Good Disposition: ADMITTED INPATIENT Admitting Provider: Hospitalist Unit Admitted: ICU
[2017-11-04 13:46] LABS: ALANINE AMINOTRANSFERASE 95 U/L (21-72); ALBUMIN 4.1 g/dL (3.5-5.0); ALKALINE PHOSPHATASE 64 U/L (38-126); ANION GAP 18 (5-19); ASPARTATE AMINO TRANSFERASE 116 U/L (17-59); BILIRUBIN,DIRECT 0.4 mg/dL (0.0-0.4); BILIRUBIN,TOTAL 0.4 mg/dL (0.2-1.3); BLOOD UREA NITROGEN 22 mg/dL (7-20); CALCIUM 9.1 mg/dL (8.4-10.2); CARBON DIOXIDE 26 mmol/L (22-30); CHLORIDE 101 mmol/L (98-107); CREATINE KINASE 57 U/L (55-170); GLUCOSE 255 mg/dL (75-110); POTASSIUM 4.9 mmol/L (3.6-5.0); SODIUM 145.4 mmol/L (137-145); TOTAL PROTEIN 7.1 g/dL (6.3-8.2)
[2017-11-04 13:54] LABS: ALCOHOL < 10 mg/dL (NONE DETECTED); SALICYLATE < 1.0 mg/dL (2.0-20.0)
[2017-11-04 13:57] LABS: CREATINE KINASE MB 2.19 ng/mL (<4.55)
[2017-11-04 14:08] LABS: TROPONIN I 0.184 ng/mL
--- NOTE | 2017-11-04 14:12 | EKG REPORT ---
SEVERITY:- ABNORMAL ECG - SINUS RHYTHM PROBABLE POSTERIOR INFARCT : Confirmed by: Wan Aguila MD 04-Nov-2017 14:11:27
[2017-11-04] MEDS: NORMAL SALINE 1000 ML 1,000 ML IV PRN ×3 (14:22→20:06)
--- NOTE | 2017-11-04 14:23 | RADIOLOGY REPORT (SQ) ---
EXAM DESCRIPTION: CT HEAD WITHOUT COMPLETED DATE/TIME: 11/04/2017 2:14 pm REASON FOR STUDY: ams COMPARISON: None. TECHNIQUE: Axial images acquired through the brain without intravenous contrast. Images reviewed wi th bone, brain and subdural windows. Additional sagittal and coronal reconstructions were generated. Images stored on PACS. All CT scanners at this facility use dose modulation, iterative reconstruction, and/or weight based d osing when appropriate to reduce radiation dose to as low as reasonably achievable (ALARA). [facility]: Dose Right [facility]: CareDose [facility]: Dose Right [facility]: Teradose 4D [facility]: ActiViews RADIATION DOSE: CT Rad equipment meets quality standard of care and radiation dose reduction techniq ues were employed. CTDIvol: 53.2 mGy. DLP: 1044 mGy-cm. mGy. LIMITATIONS: None. FINDINGS: VENTRICLES: Normal size and contour. CEREBRUM: No masses. No hemorrhage. No midline shift. No evidence for acute infarction. Normal gra y/white matter differentiation. No areas of low density in the white matter. CEREBELLUM: No masses. No hemorrhage. No alteration of density. No evidence for acute infarction. EXTRAAXIAL SPACES: No fluid collections. No masses. ORBITS AND GLOBE: No intra- or extraconal masses. Normal contour of globe without masses. CALVARIUM: No fracture. PARANASAL SINUSES: No fluid or mucosal thickening. SOFT TISSUES: No mass or hematoma. OTHER: No other significant finding. IMPRESSION: NORMAL BRAIN CT WITHOUT CONTRAST. EVIDENCE OF ACUTE STROKE: NO. COMMENT: Quality ID # [id number]: Final reports with documentation of one or more dose reduction techniques (e.g., Automated exposure control, adjustment of the mA and/or kV according to patient size, use of iterative reconstruction technique) TECHNICAL DOCUMENTATION: JOB ID: [id number] [employer]- All Rights Reserved Reading location - IP/workstation name: [email or web address]
[2017-11-04] MEDS ORDERED: ASPIRIN 600 MG SUPP, RECTAL PR ONE (14:41)
[2017-11-04] MEDS ORDERED: NALOXONE HCL INJ 2 MG/2 ML DISP.SYRIN IV ONE (14:42)
[2017-11-04] MEDS ORDERED: ENOXAPARIN SODIUM INJ 150 MG/1 ML DISP.SYRIN SUBCUT SCH (14:45)
[2017-11-04] MEDS ORDERED: ONDANSETRON HCL INJ/PF 4 MG/2 ML SDV IV ONE (15:11)
[2017-11-04 15:19] LABS: APPEARANCE,URINE CLEAR; BILIRUBIN,URINE NEGATIVE (NEGATIVE); COLOR,URINE YELLOW; GLUCOSE, URINE NEGATIVE (NEGATIVE); KETONES,URINE NEGATIVE (NEGATIVE); LEUKOCYTE ESTERASE,URINE NEGATIVE (NEGATIVE); NITRITE,URINE NEGATIVE (NEGATIVE); PROTEIN,URINE NEGATIVE (NEGATIVE); URINE SPECIFIC GRAVITY 1.021; UROBILINOGEN,URINE NEGATIVE mg/dL (<2.0)
[2017-11-04] MEDS ORDERED: NORMAL SALINE 1000 ML 1,000 ML IV ONE (15:30)
[2017-11-04] MEDS ORDERED: DEXTROSE 5%-WATER 250 ML with NOREPINEPHRINE BITARTRATE 4 MG IV PRN ×2 (15:34)
[2017-11-04 15:41] LABS: URINE AMPHETAMINES SCREEN NEGATIVE; URINE BARBITURATES SCREEN NEGATIVE; URINE BENZODIAZEPINES SCREEN NEGATIVE; URINE COCAINE SCREEN NEGATIVE; URINE MARIJUANA (THC) SCREEN UNCONFIRMED POSITIVE; URINE METHADONE SCREEN NEGATIVE; URINE PHENCYCLIDINE SCREEN NEGATIVE
[2017-11-04] MEDS ORDERED: NOREPINEPHRINE BITARTRATE INJ/PF 4 MG/4 ML SDV IV ONE ×2 (15:54→20:31)
[2017-11-04] MEDS ORDERED: ENOXAPARIN SODIUM INJ 150 MG/1 ML DISP.SYRIN SUBCUT ONE (16:00)
--- NOTE | 2017-11-04 16:10 | RADIOLOGY REPORT (SQ) ---
EXAM DESCRIPTION: CHEST SINGLE VIEW COMPLETED DATE/TIME: 11/04/2017 3:51 pm REASON FOR STUDY: ams COMPARISON: None. EXAM PARAMETERS: NUMBER OF VIEWS: One view. TECHNIQUE: Single frontal radiographic view of the chest acquired. RADIATION DOSE: NA LIMITATIONS: None. FINDINGS: LUNGS AND PLEURA: Low lung volumes. No infiltrate or effusion. MEDIASTINUM AND HILAR STRUCTURES: No masses. Contour normal. HEART AND VASCULAR STRUCTURES: Cardiac silhouette is enlarged. BONES: No acute findings. HARDWARE: None in the chest. OTHER: No other significant finding. IMPRESSION: Cardiomegaly without robel pulmonary edema. Low lung volumes. TECHNICAL DOCUMENTATION: JOB ID: [id number] [employer]- All Rights Reserved Reading location - IP/workstation name: [email or web address]
[2017-11-04] MEDS ORDERED: ONDANSETRON 4 MG TAB.RAPDIS PO ONE (16:13)
[2017-11-04] MEDS ORDERED: ONDANSETRON 4 MG TAB.RAPDIS ONE (16:14)
[2017-11-04 16:35] LABS: INTERNATIONAL RATION (INR) 1.06; PROTHROMBIN TIME 14.3 SEC (11.4-15.4)
[2017-11-04 16:36] LABS: PARTIAL THROMBOPLASTIN TIME 32.9 SEC (23.5-35.8)
[2017-11-04 16:40] LABS: HEMATOCRIT 43.8 % (37.9-51.0); HEMOGLOBIN 14.1 g/dL (13.5-17.0); MEAN CORPUSCULAR HEMOGLOBIN 28.8 pg (27.0-33.4); MEAN CORPUSCULAR HGB CONC 32.2 g/dL (32.0-36.0); MEAN CORPUSCULAR VOLUME 89 fl (80-97); PLATELET COUNT 309 10^3/uL (150-450); RED CELL DISTRIBUTION WIDTH 16.4 % (11.5-14.0); WHITE BLOOD COUNT 23.4 10^3/uL (4.0-10.5)
[2017-11-04 17:00] LABS: ABSOLUTE LYMPHOCYTES# (MANUAL) 0.5 10^3/uL (0.5-4.7); ABSOLUTE MONOCYTES # (MANUAL) 1.4 10^3/uL (0.1-1.4); ABSOLUTE NEUTROPHILS# (MANUAL) 21.5 10^3/uL (1.7-8.2); BAND NEUTROPHILS % (MANUAL) 9 % (3-5); BASOPHILS % (MANUAL) 0 % (0-2); EOSINOPHILS % (MANUAL) 0 % (0-6); LYMPHOCYTES % (MANUAL) 2 % (13-45); MONOCYTES % (MANUAL) 6 % (3-13); SEGMENTED NEUTROPHILS % (MAN) 83 % (42-78); TOTAL CELLS COUNTED 100
[2017-11-04 17:03] LABS: ANISOCYTOSIS 1+; PLATELET COMMENT ADEQUATE
[2017-11-04 17:04] LABS: HYPOCHROMASIA SLIGHT; PLATELET LARGE PRESENT
[2017-11-04] MEDS ORDERED: ONDANSETRON HCL INJ/PF 4 MG/2 ML SDV IV PRN (17:30)
[2017-11-04] MEDS ORDERED: NALOXONE HCL INJ/PF 0.4 MG/1 ML SDV IV PRN (17:42)
--- NOTE | 2017-11-04 17:58 | PDOC H&P ---
History of Present Illness Admission Date/PCP: 11/04/17 16:40 DOLLY CACERES MD Patient complains of: altered mental status History of Present Illness: ZAHIDA MARTIN is a 52 year old male with a history of morbid obesity, hypertension, and chronic pain who presents to the ED after being found altered/ unresponsive at home this morning by his family. Per ER note, was found by EMS with an O2 sat of 40%. Narcan was administered with improvement of oxygen saturation. He Upon patient's arrival to the ED, he required a nonrebreather but had improved respiratory status. At time of my evaluation, patient was more altered. States that last night he took 6 capsules of Kratom. He has been using the last 2-3 months due to chronic pain in his lower extremities. He denies using daily, rather every "few days". He admits to taking Kratom along with Gabapentin and small amount of alcohol. Denies suicidal ideation. He has never had this reaction to Kratom use in the past. Of note, patient had 3 episodes of emesis and nausea yesterday. Denies recent illness or sick contacts. 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 In the ED, labs were notable for elevated WBC (23.4), lactic acid (5.3), Cr ( 1.84), and elevated LFTs. Urine drug tox was negative except for marijuana use which patient admits to. He was also noted to be hypotensive despite IVF bolus and started on Levophed for pressure support. Patient complained of chest pain. His EKG was negative however troponin was elevated at 0.184. Started on full dose Lovenox. Repeat labs including BMP and troponin ordered and pending at this time. Will be admitted to ICU under hospitalist service. Past Medical History Cardiac Medical History: Reports: Hypertension Denies: Coronary Artery Disease, Myocardial Infarction Pulmonary Medical History: Denies: Asthma, Bronchitis, Chronic Obstructive Pulmonary Disease (COPD), Pneumonia Neurological Medical History: Reports: Migraine Denies: Seizures GI Medical History: Reports: Diverticulitis Musculoskeltal Medical History: Reports: Arthritis - KNEE Psychiatric Medical History: Reports: Depression Hematology: Denies: Anemia Past Surgical History Past Surgical History: Reports: Orthopedic Surgery - Surgery to right ankle foot infection left knee surgery, Other - Aspiration from pericardial effusion Social History Information Source: Patient Lives with: Family, Spouse/Significant other Smoking Status: Never Smoker Frequency of Alcohol Use: Social Last Alcohol Use: 11/03/17 Drugs: Marijuana Family History Family History: Arthritis, CAD, COPD, CVA, Malignancy Parental Family History Reviewed: No Children Family History Reviewed: NA Sibling(s) Family History Reviewed.: NA Medication/Allergy Home Medications: Gabapentin 300 mg PO TID 11/04/17 Lisinopril 20 mg PO DAILY 11/04/17 Meloxicam 15 mg PO DAILY 11/04/17 Naproxen [Naproxen] 1 tab PO BID PRN 11/04/17 Propranolol HCl 80 mg PO DAILY 11/04/17 Allergies/Adverse Reactions: codeine [From Tylenol-Codeine #3] Allergy (Verified 11/04/17 12:58) hydrocodone Allergy (Verified 11/04/17 12:58) Review of Systems All systems: reviewed and no additional remarkable complaints except as stated Physical Exam Vital Signs: Temp Pulse Resp BP Pulse Ox 21 H 92/69 L 98 11/04/17 17:16 11/04/17 17:16 11/04/17 17:16 General appearance: PRESENT: no acute distress, cooperative, morbidly obese Head exam: PRESENT: atraumatic, normocephalic Eye exam: PRESENT: EOMI, PERRLA. ABSENT: scleral icterus Mouth exam: PRESENT: moist Neck exam: PRESENT: full ROM Respiratory exam: PRESENT: other. ABSENT: tachypnea, unlabored Cardiovascular exam: PRESENT: RRR, +S1, +S2. ABSENT: systolic murmur GI/Abdominal exam: PRESENT: normal bowel sounds, soft. ABSENT: tenderness Neurological exam: PRESENT: alert, awake, CN II-XII grossly intact Psychiatric exam: PRESENT: appropriate affect Focused psych exam: ABSENT: delusional, euphoric, flight of ideas, paranoid, pressured speech, psychomotor agitation, restlessness Skin exam: PRESENT: dry, intact Results Laboratory Results: 11/04/17 11/04/17 11/04/17 16:45 16:45 17:11 Sodium Cancelled Potassium Cancelled Chloride Cancelled Carbon Dioxide Cancelled Anion Gap Cancelled BUN Cancelled Creatinine Cancelled Est GFR ( Amer) Cancelled Est GFR (Non-Af Amer) Cancelled Glucose Cancelled Lactic Acid 3.9 H Cancelled Calcium Cancelled 11/04/17 16:45 Troponin I Cancelled Impressions: Head CT 11/04/17 13:36 IMPRESSION: NORMAL BRAIN CT WITHOUT CONTRAST. EVIDENCE OF ACUTE STROKE: NO. Chest X-Ray 11/04/17 15:24 IMPRESSION: Cardiomegaly without robel pulmonary edema. Low lung volumes. Assessment & Plan - Diagnosis (1) Drug overdose Qualifiers: Encounter type: initial encounter Injury intent: undetermined intent Qualified Code(s): T50.904A - Poisoning by unspecified drugs, medicaments and biological substances, undetermined, initial encounter Is this a current diagnosis for this admission?: Yes Plan: Likely due to polysubstance abuse from Kratom, Gabapentin, and Alcohol use. Patient denies taking "more than usual" however there is no way to clarify this. - Mental status improved - Holding gabapentin - Admit to MICU for hypotension and pressor support - Poison control aware - Psych consulted, appreciated recs (2) Hypotension Qualifiers: Hypotension type: other hypotension type Qualified Code(s): I95.89 - Other hypotension Is this a current diagnosis for this admission?: Yes Plan: Most likely due to overdose - On Levophed for pressor support, will admit to ICU - A-line to be put in my ER attending for more accurate BP monitoring - Elevated lactic acid likely 2/2 hypotension. Repeat today down-trending. Will check again in AM (3) Altered mental status Qualifiers: Altered mental status type: somnolence Qualified Code(s): R40.0 - Somnolence Is this a current diagnosis for this admission?: Yes Plan: Markedly improved this afternoon, compared to initial presentation - Kratom overdose is responsive to Narcan, ordered PRN if MS was to worsen again (4) Elevated LFTs Is this a current diagnosis for this admission?: Yes Plan: Likely secondary to overdose - Recheck LFTs in AM - Additional work up if LFTs remains elevated (5) JHON (acute kidney injury) Is this a current diagnosis for this admission?: Yes Plan: Most likely pre-renal. Baseline unknown. - recheck BMP this evening and again in AM - Continue IVF NS at 100cc/hour - Monitor UOP (6) Elevated troponin Is this a current diagnosis for this admission?: Yes Plan: Complained of chest pain, now improved. Qualifies as nSTEMI given elevated troponin without EKG changes - Trend troponins, 2nd pending - Received full dose Lovenox - Low threshold to consult cardiology - Time Time Spent: Greater than 70 Minutes Critical Time spent with patient: 15-24 minutes Medications reviewed and adjusted accordingly: Yes - Inpatient Certification Medical Necessity: Need For IV Fluids, Need For Continuous Telemetry Monitoring , Risk of Complication if Not Cared For in Hospital
[2017-11-04 18:20] LABS: ANION GAP 12 (5-19); BLOOD UREA NITROGEN 25 mg/dL (7-20); CALCIUM 8.3 mg/dL (8.4-10.2); CARBON DIOXIDE 26 mmol/L (22-30); CHLORIDE 105 mmol/L (98-107); GLUCOSE 178 mg/dL (75-110); SODIUM 143.2 mmol/L (137-145)
[2017-11-04 18:32] LABS: ACETAMINOPHEN < 10 ug/mL (10-30)
[2017-11-04] MEDS ORDERED: CALCIUM GLUCONATE 1000 MG/10 ML INJ IV ONE (18:38)
[2017-11-04] MEDS ORDERED: INSULIN REG, HUMAN 100 UNIT/ML 3 ML VIAL (PYX) IV ONE (18:39)
[2017-11-04 22:50] LABS: ANION GAP 13 (5-19); BLOOD UREA NITROGEN 24 mg/dL (7-20); CALCIUM 8.6 mg/dL (8.4-10.2); CARBON DIOXIDE 27 mmol/L (22-30); CHLORIDE 103 mmol/L (98-107); GLUCOSE 215 mg/dL (75-110); SODIUM 143.1 mmol/L (137-145)
[2017-11-04 23:01] LABS: POTASSIUM 5.8 mmol/L (3.6-5.0)
[2017-11-05] MEDS: ACETAMINOPHEN 325 MG TABLET PO PRN (02:56)
[2017-11-05 04:52] LABS: ABSOLUTE EOSINOPHILS # (AUTO) 0.1 10^3/uL (0.0-0.6); ABSOLUTE LYMPHOCYTES (AUTO) 1.4 10^3/uL (0.5-4.7); ABSOLUTE MONOCYTES (AUTO) 0.9 10^3/uL (0.1-1.4); ABSOLUTE NEUT (AUTO) 8.2 10^3/uL (1.7-8.2); BASOPHILS % (AUTO) 0.2 % (0-2); EOSINOPHILS % (AUTO) 0.5 % (0-6); HEMATOCRIT 39.5 % (37.9-51.0); HEMOGLOBIN 13.2 g/dL (13.5-17.0); MEAN CORPUSCULAR HGB CONC 33.3 g/dL (32.0-36.0); MEAN CORPUSCULAR VOLUME 87 fl (80-97); MONOCYTES % (AUTO) 8.3 % (3-13); PLATELET COUNT 176 10^3/uL (150-450); RED BLOOD COUNT 4.54 10^6/uL (4.35-5.55); RED CELL DISTRIBUTION WIDTH 15.6 % (11.5-14.0); TOTAL CELLS COUNTED % (AUTO) 100 %; WHITE BLOOD COUNT 10.6 10^3/uL (4.0-10.5)
[2017-11-05 05:05] LABS: BLOOD UREA NITROGEN 20 mg/dL (7-20); CALCIUM 8.5 mg/dL (8.4-10.2); CARBON DIOXIDE 26 mmol/L (22-30); CHLORIDE 105 mmol/L (98-107); GLUCOSE 156 mg/dL (75-110); POTASSIUM 5.1 mmol/L (3.6-5.0)
[2017-11-05 05:06] LABS: ALANINE AMINOTRANSFERASE 99 U/L (21-72); ALBUMIN 3.3 g/dL (3.5-5.0); ALKALINE PHOSPHATASE 56 U/L (38-126); ANION GAP 12 (5-19); ASPARTATE AMINO TRANSFERASE 85 U/L (17-59); BILIRUBIN,DIRECT 0.3 mg/dL (0.0-0.4); BILIRUBIN,TOTAL 0.3 mg/dL (0.2-1.3); TOTAL PROTEIN 6.2 g/dL (6.3-8.2)
[2017-11-05] MEDS: NORMAL SALINE 1000 ML 1,000 ML IV PRN ×2 (05:11→20:57)
[2017-11-05] MEDS ORDERED: ENOXAPARIN SODIUM INJ 150 MG/1 ML DISP.SYRIN SUBCUT SCH (06:00)
--- NOTE | 2017-11-05 07:38 | EKG REPORT ---
SEVERITY:- NORMAL ECG - SINUS RHYTHM : Confirmed by: Wan Aguila MD 05-Nov-2017 07:38:20
[2017-11-05] MEDS: TRAMADOL HCL 50 MG TABLET PO PRN (11:35)
[2017-11-05] MEDS ORDERED: ENOXAPARIN SODIUM INJ 40 MG/0.4 ML DISP.SYRIN SUBCUT ONE (12:00)
[2017-11-05 12:17] LABS: CREATINE KINASE MB 12.8 ng/mL (<4.55); TROPONIN I 1.89 ng/mL
--- NOTE | 2017-11-05 13:34 | EKG REPORT ---
SEVERITY:- BORDERLINE ECG - SINUS RHYTHM NONSPECIFIC ST-T CHANGES- INFERIOR LEADS : Confirmed by: Wan Aguila MD 05-Nov-2017 13:32:51
[2017-11-05] MEDS: ONDANSETRON 4 MG TAB.RAPDIS PO PRN ×2 (15:58→20:23)
--- NOTE | 2017-11-05 16:28 | PDOC PROGRESS REPORT ---
Subjective Progress Note for:: 11/05/17 Subjective:: The patient is a 52-year-old gentleman with past medical history of Hypertension Chronic pain Morbid obesity. He was found to be unresponsive at home by his and was brought to the emergency room on November 04. EMS found him hypoxic and he received Narcan with improvement in his oxygen saturations. He tells me that he took 6 capsules of kratom, his usual dose of gabapentin and some wine. He denies any recent illness. Has had intermittent chest pressure. He has chronic pain and chronic left shoulder pain. Feels well and has no complaints at present. Upon admission troponin was mildly positive and he was started on full dose Lovenox. Cardiology evaluation was requested along with an echocardiogram. Reason For Visit: DRUG OVERDOSE Physical Exam Vital Signs: Temp Pulse Resp BP Pulse Ox 98.2 F 76 12 102/53 L 97 11/05/17 11:45 11/05/17 11:18 11/05/17 13:07 11/05/17 13:08 11/05/17 13:08 Intake & Output 11/04/17 11/05/17 11/06/17 06:59 06:59 06:59 Intake Total 1430 580 Output Total 2750 925 Balance -1320 -345 Weight 181.5 kg 181.5 kg General appearance: PRESENT: obese Head exam: PRESENT: normocephalic Ear exam: PRESENT: normal external ear exam Mouth exam: PRESENT: moist Respiratory exam: PRESENT: symmetrical, unlabored. ABSENT: crackles Cardiovascular exam: PRESENT: RRR GI/Abdominal exam: PRESENT: normal bowel sounds, soft. ABSENT: tenderness Rectal exam: PRESENT: deferred Gentrourinary exam: ABSENT: indwelling catheter Neurological exam: PRESENT: alert, awake, oriented to person, oriented to place , oriented to time, oriented to situation Psychiatric exam: PRESENT: appropriate affect Skin exam: ABSENT: petechiae Results Laboratory Results: 11/05/17 04:35 11/05/17 04:35 11/04/17 11/04/17 11/04/17 16:45 16:45 17:11 WBC RBC Hgb Hct MCV MCH MCHC RDW Plt Count Seg Neutrophils % Lymphocytes % Monocytes % Eosinophils % Basophils % Absolute Neutrophils Absolute Lymphocytes Absolute Monocytes Absolute Eosinophils Absolute Basophils Sodium Cancelled Potassium Cancelled Chloride Cancelled Carbon Dioxide Cancelled Anion Gap Cancelled BUN Cancelled Creatinine Cancelled Est GFR ( Amer) Cancelled Est GFR (Non-Af Amer) Cancelled Glucose Cancelled Lactic Acid 3.9 H Cancelled Calcium Cancelled Phosphorus Magnesium Total Bilirubin AST ALT Alkaline Phosphatase Total Protein Albumin TSH 11/04/17 11/04/17 11/04/17 17:11 18:00 21:56 WBC RBC Hgb Hct MCV MCH MCHC RDW Plt Count Seg Neutrophils % Lymphocytes % Monocytes % Eosinophils % Basophils % Absolute Neutrophils Absolute Lymphocytes Absolute Monocytes Absolute Eosinophils Absolute Basophils Sodium Cancelled 143.2 143.1 Potassium Cancelled 7.0 H* D 5.8 H D Chloride Cancelled 105 103 Carbon Dioxide Cancelled 26 27 Anion Gap Cancelled 12 13 BUN Cancelled 25 H 24 H Creatinine Cancelled 1.94 H 1.60 H Est GFR ( Amer) Cancelled 44 L 55 L Est GFR (Non-Af Amer) Cancelled 36 L 45 L Glucose Cancelled 178 H 215 H Lactic Acid Calcium Cancelled 8.3 L 8.6 Phosphorus Magnesium Total Bilirubin AST ALT Alkaline Phosphatase Total Protein Albumin TSH 11/05/17 11/05/17 11/05/17 04:35 04:35 04:35 WBC 10.6 H RBC 4.54 Hgb 13.2 L Hct 39.5 MCV 87 MCH 29.0 MCHC 33.3 RDW 15.6 H Plt Count 176 Seg Neutrophils % 78.0 Lymphocytes % 13.0 Monocytes % 8.3 Eosinophils % 0.5 Basophils % 0.2 Absolute Neutrophils 8.2 Absolute Lymphocytes 1.4 Absolute Monocytes 0.9 Absolute Eosinophils 0.1 Absolute Basophils 0.0 Sodium 143.0 Potassium 5.1 H Chloride 105 Carbon Dioxide 26 Anion Gap 12 BUN 20 Creatinine 1.07 Est GFR ( Amer) > 60 Est GFR (Non-Af Amer) > 60 Glucose 156 H Lactic Acid 1.9 Calcium 8.5 Phosphorus Magnesium Total Bilirubin 0.3 AST 85 H ALT 99 H Alkaline Phosphatase 56 Total Protein 6.2 L Albumin 3.3 L TSH 11/05/17 11/05/17 04:35 04:35 WBC RBC Hgb Hct MCV MCH MCHC RDW Plt Count Seg Neutrophils % Lymphocytes % Monocytes % Eosinophils % Basophils % Absolute Neutrophils Absolute Lymphocytes Absolute Monocytes Absolute Eosinophils Absolute Basophils Sodium Potassium Chloride Carbon Dioxide Anion Gap BUN Creatinine Est GFR ( Amer) Est GFR (Non-Af Amer) Glucose Lactic Acid Calcium Phosphorus 4.0 Magnesium 2.3 Total Bilirubin AST ALT Alkaline Phosphatase Total Protein Albumin TSH 0.48 11/04/17 11/04/17 11/04/17 16:45 17:11 18:00 CK-MB (CK-2) Troponin I Cancelled Cancelled 0.877 NT-Pro-B Natriuret Pep 11/04/17 11/05/17 21:56 11:15 CK-MB (CK-2) 12.80 H Troponin I 1.780 1.890 NT-Pro-B Natriuret Pep 624 Impressions: Head CT 11/04/17 13:36 IMPRESSION: NORMAL BRAIN CT WITHOUT CONTRAST. EVIDENCE OF ACUTE STROKE: NO. Chest X-Ray 11/04/17 15:24 IMPRESSION: Cardiomegaly without robel pulmonary edema. Low lung volumes. Assessment & Plan - Diagnosis (1) Altered mental status Qualifiers: Altered mental status type: somnolence Qualified Code(s): R40.0 - Somnolence Is this a current diagnosis for this admission?: Yes Plan: Due to a combination of alcohol, kratom and gabapentin. Improving (2) Elevated LFTs Is this a current diagnosis for this admission?: Yes Plan: Mild, nonspecific. Monitor (3) Medication overdose Qualifiers: He needs antibiotic Encounter type: sequela Injury intent: accidental or unintentional Qualified Code(s): T50.901S - Poisoning by unspecified drugs, medicaments and biological substances, accidental ( unintentional), sequela Is this a current diagnosis for this admission?: Yes (4) Elevated troponin Is this a current diagnosis for this admission?: Yes Plan: Mild, no ekg changes, likely secondary to acute respiratory distress. - Time Time Spent with patient: 35 or more minutes
[2017-11-05] MEDS ORDERED: OXYCODONE HCL IR 5 MG TABLET PO PRN (16:35)
[2017-11-05] MEDS ORDERED: LORAZEPAM INJ 2 MG/1 ML VIAL ONE (22:00)
[2017-11-05] MEDS ORDERED: LORAZEPAM INJ 2 MG/1 ML VIAL IV ONE (22:15)
--- NOTE | 2017-11-05 22:41 | CONSULTATION REPORT E ---
Consultation Report NAME: ZAHIDA MARTIN : 1965 AGE: 52Y DATE: 11/05/2017 607 A TO: RUTHIE FRANCOIS M.D. FROM: Robinson BELLO, Requesting Physician REASON FOR CONSULTATION: Elevated troponin I and CPK-MB. ? Non-STEMI. HISTORY: The history is now obtained from the patient but earlier, much of it was obtained from the chart since the patient, at that time, could not state his full history. The patient is a 52-year-old male with a history of morbid obesity, hypertension, chronic pain syndrome. States that he took several tablets of gabapentin and also took an online pain supplement called Kratom and also had drank some whiskey, a small amount, he states, and then passed out. He does not remember anything after that. He was found by the EMS to have a oxygen saturation of 40%. He was placed on a nonrebreather and was also given Narcan. In the Emergency Room, he was hypotensive and had an elevated lactic acid level and also abnormal LFTs. The hypotension did not improve with IV fluid bolus and the patient transiently for a short period of time was on Levophed drip which has now been discontinued. As mentioned earlier, he had a metabolic acidosis with an elevated lactic acid due to hypotension, hypoperfusion, and hypoxemia with an O2 sat of 40% initially and also hypotension which caused transient acute renal insufficiency which has now been corrected by giving fluids. Most likely, this is prerenal and also secondary to hypotension and hypoxemia. He also has abnormal liver function tests. His serial EKGs have been normal and his CPK-MB and troponin I are elevated. The patient denies any chest pain or discomfort. There is no shortness of breath, palpitations or leg edema. He denies any PND or orthopnea. PAST MEDICAL HISTORY: Positive for hypertension. He has no history of coronary artery disease or AL. Although he does not clear cut anginal symptoms, he states when he gets into an argument with his , he has generalized chest pressure, which lasts for about 10 minutes and subsides when he calms down. He states that when he has that, he walks around which helps him to calm himself but does not increase the pain. He also states that his told him that he snores a lot in his sleep and also stops breathing and he states that after a night's sleep, he does not feel rested in the morning. He has chronic pain due to multiple surgeries on his left knee and also chronic back pain. He has no history of COPD or asthma. There is no history of pulmonary embolism. There is no history of diabetes mellitus or thyroid disease. There is no history of headaches, migraines, seizures, TIA or CVA. He has a history of depression which he states is well controlled, although at home, he was not on any antidepressant. He is now on antidepressant. The patient denies any suicidal ideation. PAST SURGICAL HISTORY: Positive for debridement and suturing of a wound in his right lower leg on the medial side near the ankle which he states that the infection was so severe, it nearly took his life. He also has had left knee surgery. He also has had right testicular surgery for torsion of the testis. FAMILY HISTORY: He states that his father had an AL when the Father was age 6060 years old. There is also history of hypertension in the family. ALLERGIES: THE PATIENT STATES THAT HE IS ALLERGIC TO CODEINE AND HYDROCODONE WHICH CAUSES SEVERE NAUSEA BUT NO OTHER REACTION AND HENCE, HE AVOIDS THAT. SOCIAL HISTORY: The patient does not smoke. He occasionally uses marijuana. There is history of chronic pain that he requires gabapentin and recently took a supplement called Kratom (also called [employer]) from the Internet/online. DISPOSITION: The patient is a FULL CODE. His is the surrogate healthcare decision maker. MEDICATIONS: At home include: 1. Gabapentin 300 mg p.o. t.i.d. p.r.n. 2. Lisinopril 30 mg p.o. daily. 3. Meloxicam 15 mg p.o. daily p.r.n.. 4. Naproxen 500 mg p.o. b.i.d. p.r.n. In the hospital include: 5. Cymbalta 30 mg p.o. b.i.d. 6. Lovenox 1 mg/kg subcutaneously q. 12 hours. 7. He did receive normal saline IV 1000 mL x2 for a total of 2 L. 8. He was transiently on a norepinephrine/Levophed drip which has now been discontinued. 9. Zofran 4 mg p.o. q. 6 hours p.r.n. 10. Zofran 4 mg IV q. 6 hours p.r.n. 11. Oxycodone 5 mg p.o. q. 6 hours p.r.n. 12. Tramadol 50 mg p.o. q. 6 hours p.r.n. REVIEW OF SYSTEMS: CONSTITUTIONAL: Denies any fevers, chills or rigors. Complains of generalized fatigue and generalized weakness. HEAD: Denies headaches or head injury. EYES: No history of amblyopia or diplopia. No history of amaurosis fugax. EARS: No history of hearing loss. No history of tinnitus. No history of recurrent ear infection. NOSE: No history of nosebleeds. No history of nasal polyps. No history of hay fever. MOUTH: No history of altered taste sensation. No history of ulcers in the mouth. No bleeding from the gums. THROAT: No odynophagia or dysphagia. No recurrent sore throats. SKIN: No pruritus. No yellowish discoloration of the skin. No psoriasis. No skin cancer. NECK: No painful or painless swelling of the neck. No goiter. No lymphadenopathy. LUNGS: No history of asthma or COPD. No history of wheezing. No history of cough or sputum production. No symptoms suggestive of upper respiratory tract infection or lower respiratory tract infection. No history of pulmonary embolism. No history of hemoptysis. No history of pleuritic chest pain. Although he has not had an official sleep study, the patient describes symptoms of obstructive sleep apnea. His has told him that he snores in his sleep and he also stops breathing. He also states after a night's sleep when he wakes up, he feels very tired in the morning and he also has nightmares. Hence, the patient clearly has clinical obstructive sleep apnea which needs further testing. CARDIAC: History of hypertension present. No history of coronary artery disease, AL or anginal symptoms. Atypical chest pressure, as mentioned earlier. No history of palpitations. Prior to this, no definite history of syncope. The patient was unresponsive due to medication this time. There is no history of leg edema. There is no history of PND or orthopnea. The patient states that he has no shortness of breath but he does not ambulate much due to his morbid obesity, his chronic back pain, and his knee pain. The patient has atypical chest pressure which lasts for 10 minutes or so but occurs only when he has an argument with his . It subsides spontaneously when he calms down and this he does by walking around and the walking around does not increase his chest pressure. Hence, this is most likely secondary to anxiety of the argument rather than atypical chest pressure/atypical angina. METABOLIC: Denies hyperlipidemia or gout. Has morbid obesity. GASTROINTESTINAL: No history of GERD. No history of peptic ulcer disease. No history of hiatal hernia. No history of fatty food intolerance. No history of hepatitis. No history of jaundice. No history of cirrhosis. No history of GI bleed. No history of abdominal pain. No history of altered bowel movements. ENDOCRINE: No history of diabetes mellitus or thyroid disease. No history of polydipsia or polyuria. No history of heat or cold intolerance. RENAL: No prior history of chronic kidney disease. The patient's renal function was compromised when he came in but this most likely prerenal since the renal functions have normalized. No symptoms of enlarged prostate. No history of hematuria, pyuria or dysuria. No symptoms of UTI. MUSCULOSKELETAL: History of chronic back pain and history of left knee pain. No history of collagen-vascular disease. CENTRAL NERVOUS SYSTEM: No history of TIA or CVA. No history seizures, headaches or migraines. No gait imbalance. PSYCHIATRIC: Does have depression but he does not take any medication for that. No history of anxiety. No history of suicidal ideation. No history of homicidal ideation. VASCULAR: No history of calf or buttocks claudication. No history of DVT. HEMATOLOGICAL: No history of bleeding diathesis. No history of clotting disorders. PHYSICAL EXAMINATION: GENERAL: The patient is morbidly obese but pleasant, with no acute distress. He is well groomed. He is awake, alert and oriented x3 without any agitation or depression. VITAL SIGNS: The patient is afebrile with a temperature of 98.1 degrees Fahrenheit. Pulse is 76 beats per minute. His blood pressure is 119/74. Respirations are 14 per minute. O2 sats are 100% on 4 L nasal cannula. HEENT: Head is atraumatic and normocephalic. Eyes: Pupils are equal, round, regular, reactive to light and accommodation. Extraocular movements are normal. There is no conjunctival pallor. There is no scleral icterus. Ears: Tympanic membranes are intact. External auditory canals are clear. There are no lesions on the pinnae. Nose: There is no deviated nasal septum. There is no inflammation of the nasal mucous membranes. There is no nasal polyposis. Mouth: Mucous membranes of the mouth are moist. Tongue is moist. There are no ulcers. There is no bleeding from the gums. Throat: There is no redness of the oropharynx. There are no exudates. SKIN: There are no skin rashes. There are no skin lesions. There is no petechia or ecchymosis. NECK: Supple. There is no JVD. Carotids are equal. There is no bruit. There is no lymphadenopathy. There is no goiter. Trachea is central. LUNGS: Clear to auscultation and percussion without any rhonchi, rales or wheezing. HEART: S1 and S2 is heard. There is no S3 gallop. There is no S4 gallop. There is a systolic murmur in the left sternal border on the apex. There is no rub. ABDOMEN: Obese, nontender. There is no hepatosplenomegaly. Bowel sounds are well heard. There are no tender areas or masses. There is no rebound, guarding or rigidity. EXTREMITIES: Femorals are very much diminished. Femorals are deep. There are no femoral bruits. Leg pulses are diminished. There is no pedal edema. There is no DVT or cellulitis. There is no calf tenderness. There is no cyanosis or clubbing. There is a scar of surgery over his left knee. There is also a healed scar in the medial aspect of his right lower leg near the right ankle. CENTRAL NERVOUS SYSTEM: The patient is conscious, awake, alert, and oriented x3 with no focal deficits. PSYCHIATRIC: The patient's judgment and insight are intact. His affect is normal. DIAGNOSTICS: The patient's serial EKGs x2 are within normal limits. His head CT shows normal brain CT without contrast. No evidence of acute stroke. The patient's chest x-ray shows cardiomegaly without pulmonary edema, low lung volumes. The patient's white count is 10,600; yesterday it was 23,300; his hemoglobin is 13.2; hematocrit is 39.5; platelet count is 176,000. The patient's serum alcohol is less than 10. His urine marijuana is unconfirmed positive. His urine opiates, methadone, barbiturates, phencyclidine, amphetamines, benzodiazepine, and cocaine are all negative. His acetaminophen level is less than 10. The patient's sodium is 143, potassium is 5.1, chloride is 105, CO2 is 26, the patient's BUN is 20, creatinine is 1.07, GFR is greater than 60. Yesterday, his BUN was 24, creatinine was 1.60, and potassium was 5.8; his GFR was 45 mL. Today, it is normal. The patient's glucose is 156; his calcium is 8.5. His liver function tests show abnormal AST of 85, ALT of 99, alk phos of 56. His TSH is 0.48. His CPK-MB was 12.80 and his troponin I was 1.890 at 11:15. Earlier, the troponin was 0.877. His lactic acid was elevated initially at 5.3 and then came down to 3.9. IMPRESSION: 1. Elevated troponin I and CPK-MB. The likely cause is the patient's hypoxemia, hypotension, elevated lactic acid causing poor perfusion, and also acute renal insufficiency. 2. No definite evidence of non-ST elevation AL but in view of the patient's elevated CPK-MB and troponin I, would make sure to get an echocardiogram. Later, once the troponin I comes down, in view of the patient's multiple risk factors (risk factors being patient's age, hypertension, and family history of coronary artery disease, with the patient having atypical chest pressure when in argument with his ), would recommend that the patient have an IV Lexiscan Cardiolite stress test. This would be done when the troponin I has trended down. 3. Respiratory failure secondary to drug overdose, resolved. 4. Hypertension, well controlled. 5. Chronic pain syndrome. 6. Symptoms of obstructive sleep apnea. 7. Depression. 8. Atypical chest pain/pressure. No evidence of AL. No evidence of ischemia with EKG. The troponin I elevation and CPK-MB elevation most likely secondary to the patient having a supply-demand mismatch/type 2 AL. Note: The patient did not have any chest pressure during this time but he has had atypical chest pressure in the past. Please see review of symptoms. 9. Abnormal LFTs. Would serially check the LFTs. 10. Morbid obesity. RECOMMENDATIONS: Would cycle the patient's troponin I to make sure it is trending down. Would check an echocardiogram. Would not treat this as a non-ST elevation AL. Would treat underlying cause which is being done. Would decrease the patient's Lovenox to 40 mg subcutaneously to prevent DVT and would not treat this as non-ST elevation AL, with the Lovenox at 1 mg/kg subcutaneously q. 12 hours. Would recommend starting the patient on aspirin. Would also recheck the patient's LFTs. Medical decision making is of high complexity. TIME SPENT: Note: The patient was seen at 9:30 a.m. this morning; 60 minutes was spent on this patient with more than 50% of the time spent on direct patient care. His records have been reviewed by me of this admission. Also, his medications have been reviewed and suggestions made to change the Lovenox dosage. Would also get an EKG and troponin I in the morning. Medical decision making is of high complexity. Discussed with other caregiving providers on the case. Will follow with you. Would also check the patient's echo. DICTATING PHYSICIAN: RUTHIE FRANCOIS M.D. [id number] Y#: [id number] ID: [id number] JOB#: [id number] ACCT: [id number] cc:RUTHIE FRANCOIS M.D. >
[2017-11-05 22:51] LABS: CREATINE KINASE MB 7.22 ng/mL (<4.55); TROPONIN I 1.11 ng/mL
[2017-11-06 04:15] LABS: ABSOLUTE EOSINOPHILS # (AUTO) 0.2 10^3/uL (0.0-0.6); ABSOLUTE LYMPHOCYTES (AUTO) 1.4 10^3/uL (0.5-4.7); ABSOLUTE MONOCYTES (AUTO) 0.7 10^3/uL (0.1-1.4); ABSOLUTE NEUT (AUTO) 6.9 10^3/uL (1.7-8.2); BASOPHILS % (AUTO) 0.3 % (0-2); EOSINOPHILS % (AUTO) 2.5 % (0-6); HEMATOCRIT 39.5 % (37.9-51.0); HEMOGLOBIN 13.1 g/dL (13.5-17.0); LYMPHOCYTES % (AUTO) 15.4 % (13-45); MEAN CORPUSCULAR HEMOGLOBIN 28.7 pg (27.0-33.4); MEAN CORPUSCULAR HGB CONC 33.2 g/dL (32.0-36.0); MEAN CORPUSCULAR VOLUME 86 fl (80-97); MONOCYTES % (AUTO) 7.1 % (3-13); PLATELET COUNT 136 10^3/uL (150-450); RED BLOOD COUNT 4.58 10^6/uL (4.35-5.55); RED CELL DISTRIBUTION WIDTH 15.6 % (11.5-14.0); SEGMENTED NEUTROPHILS % (AUTO) 74.7 % (42-78); TOTAL CELLS COUNTED % (AUTO) 100 %; WHITE BLOOD COUNT 9.2 10^3/uL (4.0-10.5)
[2017-11-06 04:37] LABS: ALANINE AMINOTRANSFERASE 84 U/L (21-72); ALBUMIN 3.5 g/dL (3.5-5.0); ALKALINE PHOSPHATASE 62 U/L (38-126); ANION GAP 6 (5-19); ASPARTATE AMINO TRANSFERASE 60 U/L (17-59); BILIRUBIN,DIRECT 0.4 mg/dL (0.0-0.4); BILIRUBIN,TOTAL 0.4 mg/dL (0.2-1.3); BLOOD UREA NITROGEN 18 mg/dL (7-20); CALCIUM 8.8 mg/dL (8.4-10.2); CARBON DIOXIDE 34 mmol/L (22-30); CHLORIDE 102 mmol/L (98-107); GLUCOSE 129 mg/dL (75-110); PHOSPHORUS 3.1 mg/dL (2.5-4.5); POTASSIUM 4.8 mmol/L (3.6-5.0); SODIUM 142.2 mmol/L (137-145); TOTAL PROTEIN 6.7 g/dL (6.3-8.2)
--- NOTE | 2017-11-06 07:17 | EKG REPORT ---
SEVERITY:- BORDERLINE ECG - SINUS RHYTHM BORDERLINE T ABNORMALITIES, INFERIOR LEADS : Confirmed by: Wan Aguila MD 06-Nov-2017 07:16:31
[2017-11-06] MEDS: ONDANSETRON 4 MG TAB.RAPDIS PO PRN (10:20)
[2017-11-06] MEDS: DULOXETINE HCL 30 MG CAPSULE.DR PO SCH ×2 (10:21→17:55)
[2017-11-06] MEDS: ENOXAPARIN SODIUM INJ 40 MG/0.4 ML DISP.SYRIN SUBCUT SCH (10:22)
--- NOTE | 2017-11-06 10:42 | CONSULTATION REPORT E ---
Consultation Report NAME: ZAHIDA MARTIN : 1965 AGE: 52Y DATE: 11/05/2017 ROOM: 607 A TO: RUTHIE FRANCOIS M.D. FROM: Robinson BELLO, Requesting Physician REASON FOR CONSULTATION: The patient with elevated troponin I. INFORMANT: History from the patient and from the chart. HISTORY OF PRESENT ILLNESS: The patient is a 53-year-old morbidly obese male with a history of hypertension and chronic pain syndrome with chronic back pain and pain in his right knee who states that he took a few tablets of gabapentin and also a natural supplement called Kratom and also had some alcohol and was found to be unresponsive at home on the morning of 11/04/2017. He was seen by EMS with an O2 sat of 40% and he was given Narcan and also was placed on a nonrebreather. In the emergency room he was also found to be hypotensive and required transient usage of Levophed. The patient's lactic acid was also abnormal and he also had abnormal LFTs. Now the patient is on nasal cannula with good saturation. Denies any chest pain or discomfort. There is no PND, orthopnea. He states that since the past few months he has had chest tightness in the front of the chest whenever he has arguments with his and last anywhere from 15 minutes to a half an hour and does not increase with exertion. He denies any palpitations, PND, orthopnea, or leg edema. There is no shortness of breath but note due to the left knee pain and his back he does not ambulate much and also he is morbidly obese. PAST MEDICAL HISTORY: Positive for hypertension. There is no history of coronary artery disease, no history of AL or anginal symptoms. Atypical chest pressure as mentioned earlier, which comes only when he has an argument with his and is not with exertion, but again the patient does not exert himself much. He has a history of chronic pain and also pain in the left knee for which he states he has had several surgeries with severe pain in the left knee and he takes gabapentin at home. He has no history of diabetes mellitus or thyroid disease. He has no history of TIA or CVA. There is no history of chronic kidney disease. Initially the patient was prerenal when he was admitted but subsequently his renal function normalized. He denies such episodes in the past. There is no suicidal ideation. There is no history of congestive heart failure. There is no history of cardiac arrhythmia. There is no history of seizures, headaches, migraines. The patient does have a history of depression but no anxiety. PAST SURGICAL HISTORY: The patient states that he had a wound in his medial side of his right lower leg which became infected and he states that he nearly lost his leg and there is a scar of that there. He also has had knee surgery on the left knee, he says a couple of times with complications. At present has chronic pain. FAMILY HISTORY: He states when his father was in the 60s his father had a myocardial infarction. There is also a history of hypertension in the family. ALLERGIES: He says CODEINE and HYDROCODONE gives him nausea but no true allergy and, hence, he avoids that due to nausea. ADVANCE DIRECTIVES: The patient is a full code. His is his surrogate healthcare decision maker. HOME MEDICATIONS: 1. Gabapentin 300 mg p.o. t.i.d. p.r.n. 2. Lisinopril 30 mg p.o. daily. 3. Meloxicam 15 mg p.o. daily p.r.n. 4. Naproxen 500 mg p.o. b.i.d. p.r.n. MEDICATIONS IN THE HOSPITAL: 1. Lovenox at 1 mg/kg subcutaneously q.12 hours. 2. Cymbalta 30 mg p.o. b.i.d. 3. He did receive normal saline 1000 mL IV x2 bags and since this did not correct his hypotension the patient transiently was on Levophed, now he is off the Levophed drip. 4. Zofran 4 mg p.o. q.4 hours p.r.n. 5. Oxycodone 5 mg p.o. q.6 hours p.r.n. 6. Tramadol 50 mg p.o. q.6 hours p.r.n. REVIEW OF SYSTEMS: CONSTITUTIONAL: Denies any fever, chills, or rigors. HEAD: Denies headache or head injury. EYES: No history of amblyopia or diplopia. No history of amaurosis fugax. EARS: No history of hearing loss. No history of tinnitus. No history of recurrent ear infections. NOSE: No history of nosebleeds. No history of hay fever. No history of nasal polyps. MOUTH: No altered taste sensation. No ulcers in the mouth. No bleeding from the gums. THROAT: There is no odynophagia or dysphagia. DICTATION ENDED DICTATING PHYSICIAN: RUTHIE FRANCOIS M.D. [id number] PHY#: [id number] ID: [id number] JOB#: [id number] ACCT: [id number] cc:RUTHIE FRANCOIS M.D. >
[2017-11-06] MEDS: TRAMADOL HCL 50 MG TABLET PO PRN (10:46)
[2017-11-06] MEDS ORDERED: PROMETHAZINE HCL INJ 25 MG/1 ML VIAL ONE (13:06)
--- NOTE | 2017-11-06 13:11 | RADIOLOGY REPORT (SQ) ---
EXAM DESCRIPTION: CT HEAD WITHOUT COMPLETED DATE/TIME: 11/06/2017 12:51 pm REASON FOR STUDY: sudden severe headache COMPARISON: 11/04/2017 CT brain TECHNIQUE: Axial images acquired through the brain without intravenous contrast. Images reviewed wi th bone, brain and subdural windows. Additional sagittal and coronal reconstructions were generated. Images stored on PACS. All CT scanners at this facility use dose modulation, iterative reconstruction, and/or weight based d osing when appropriate to reduce radiation dose to as low as reasonably achievable (ALARA). [facility]: Dose Right [facility]: CareDose [facility]: Dose Right [facility]: Teradose 4D [facility]: [employer] RADIATION DOSE: CT Rad equipment meets quality standard of care and radiation dose reduction techniq ues were employed. CTDIvol: 48.6 mGy. DLP: 1003 mGy-cm. mGy. LIMITATIONS: Mild motion artifact FINDINGS: VENTRICLES: Normal size and contour. CEREBRUM: No masses. No hemorrhage. No midline shift. No evidence for acute infarction. Normal gra y/white matter differentiation. No areas of low density in the white matter. CEREBELLUM: No masses. No hemorrhage. No alteration of density. No evidence for acute infarction. EXTRAAXIAL SPACES: No fluid collections. No masses. ORBITS AND GLOBE: No intra- or extraconal masses. Normal contour of globe without masses. CALVARIUM: No fracture. PARANASAL SINUSES: Mucous membrane thickening right frontal sinus and bilateral ethmoid air cells. A ir-fluid level left sphenoid SOFT TISSUES: No mass or hematoma. OTHER: No other significant finding. IMPRESSION: No acute intracranial changes Inflammatory changes paranasal sinuses EVIDENCE OF ACUTE STROKE: NO. COMMENT: Quality ID # [id number]: Final reports with documentation of one or more dose reduction techniques (e.g., Automated exposure control, adjustment of the mA and/or kV according to patient size, use of iterative reconstruction technique) TECHNICAL DOCUMENTATION: JOB ID: [id number] [employer]- All Rights Reserved Reading location - IP/workstation name: [email or web address]
[2017-11-06] MEDS: ACETAMINOPHEN 325 MG TABLET PO PRN (13:39)
[2017-11-06] MEDS ORDERED: ACETAMINOPHEN 325 MG TABLET ONE (13:42)
[2017-11-06] MEDS ORDERED: PROMETHAZINE HCL INJ 25 MG/1 ML VIAL IV SCH (18:00)
--- NOTE | 2017-11-06 19:05 | PDOC PROGRESS REPORT ---
Subjective Progress Note for:: 11/06/17 - seen on rounds this afternoon Reason For Visit: DRUG OVERDOSE Physical Exam Vital Signs: Temp Pulse Resp BP Pulse Ox 98.7 F 68 20 116/72 97 11/06/17 18:00 11/06/17 18:00 11/06/17 18:00 11/06/17 18:00 11/06/17 18:00 Intake & Output 11/05/17 11/06/17 11/07/17 06:59 06:59 06:59 Intake Total 1430 1561 0 Output Total 2750 1725 300 Balance -1320 -164 -300 Weight 400 lb 2.224 oz 395 lb 1.094 oz General appearance: PRESENT: no acute distress, morbidly obese Head exam: PRESENT: atraumatic, normocephalic Eye exam: PRESENT: EOMI. ABSENT: conjunctival injection, scleral icterus Mouth exam: PRESENT: moist, neck supple Neck exam: PRESENT: full ROM. ABSENT: JVD, tenderness Respiratory exam: PRESENT: clear to auscultation prashanth, symmetrical Cardiovascular exam: PRESENT: RRR, +S1, +S2 Pulses: PRESENT: +2 pedal pulses bilateral GI/Abdominal exam: PRESENT: normal bowel sounds, soft. ABSENT: tenderness Extremities exam: ABSENT: calf tenderness, joint swelling Musculoskeletal exam: PRESENT: full ROM. ABSENT: tenderness Neurological exam: PRESENT: alert, altered, awake, oriented to person, oriented to place, oriented to time, CN II-XII grossly intact Skin exam: PRESENT: dry, warm Results Laboratory Results: 11/06/17 03:54 11/06/17 03:54 11/06/17 11/06/17 03:54 03:54 WBC 9.2 RBC 4.58 Hgb 13.1 L Hct 39.5 MCV 86 MCH 28.7 MCHC 33.2 RDW 15.6 H Plt Count 136 L Seg Neutrophils % 74.7 Lymphocytes % 15.4 Monocytes % 7.1 Eosinophils % 2.5 Basophils % 0.3 Absolute Neutrophils 6.9 Absolute Lymphocytes 1.4 Absolute Monocytes 0.7 Absolute Eosinophils 0.2 Absolute Basophils 0.0 Sodium 142.2 Potassium 4.8 Chloride 102 Carbon Dioxide 34 H Anion Gap 6 BUN 18 Creatinine 0.78 Est GFR ( Amer) > 60 Est GFR (Non-Af Amer) > 60 Glucose 129 H Calcium 8.8 Phosphorus 3.1 Magnesium 2.4 H Total Bilirubin 0.4 AST 60 H ALT 84 H Alkaline Phosphatase 62 Total Protein 6.7 Albumin 3.5 11/04/17 11/04/17 11/04/17 16:45 17:11 18:00 Creatine Kinase CK-MB (CK-2) Troponin I Cancelled Cancelled 0.877 NT-Pro-B Natriuret Pep 11/04/17 11/05/17 11/05/17 21:56 11:15 22:12 Creatine Kinase 95 CK-MB (CK-2) 12.80 H Troponin I 1.780 1.890 NT-Pro-B Natriuret Pep 624 11/05/17 11/06/17 22:12 03:54 Creatine Kinase CK-MB (CK-2) 7.22 H Troponin I 1.110 0.876 NT-Pro-B Natriuret Pep Impressions: Chest X-Ray 11/04/17 15:24 IMPRESSION: Cardiomegaly without robel pulmonary edema. Low lung volumes. Head CT 11/06/17 00:00 IMPRESSION: No acute intracranial changes Inflammatory changes paranasal sinuses EVIDENCE OF ACUTE STROKE: NO. Assessment & Plan - Diagnosis (1) JHON (acute kidney injury) Is this a current diagnosis for this admission?: Yes (2) Altered mental status Qualifiers: Altered mental status type: somnolence Qualified Code(s): R40.0 - Somnolence Is this a current diagnosis for this admission?: Yes (3) Drug overdose Qualifiers: Encounter type: initial encounter Injury intent: undetermined intent Qualified Code(s): T50.904A - Poisoning by unspecified drugs, medicaments and biological substances, undetermined, initial encounter Is this a current diagnosis for this admission?: Yes (4) Elevated LFTs Is this a current diagnosis for this admission?: Yes (5) Elevated troponin Is this a current diagnosis for this admission?: Yes (6) Hypotension Qualifiers: Hypotension type: other hypotension type Qualified Code(s): I95.89 - Other hypotension Is this a current diagnosis for this admission?: Yes - Time Total Critical Time (Minutes): 50 Medications reviewed and adjusted accordingly: Yes Anticipated discharge: Home with Homehealth Within: within 48 hours - Plan Summary Plan Summary: 52-year-old male with past medical history of morbid obesity, chronic pain and hypertension who placed to the ED altered and unresponsive. Likely his symptoms were due to overdose of medications that he was taking. His home medications were held and he was placed in the ICU. His altered mental status has resolved at this point. He is much more conversational at this time. He did have hypertension and started on Levophed which is now titrated off. His blood pressure is elevated now and started him back lisinopril 10 mg. Elevated LFTs and bilirubin-likely secondary to medication versus his current symptoms. Bilirubin is rising so I will order a right upper quadrant ultrasound tomorrow. Acute kidney injury-most likely secondary to his current condition-resolved at this point. Troponin was elevated but has trended down. Most likely demand ischemia.
--- NOTE | 2017-11-06 19:47 | XCELERA REPORT ---
[address] [address] Transthoracic Echocardiogram Report Name: ZAHIDA MARTIN Age: 52 yrs Gender: Male : 1965 Patient Status: Inpatient Patient Location: ICU^607A Study Date: 11/05/2017 02:58 PM Procedure: A two-dimensional transthoracic echocardiogram with color flow and Doppler was performed. The study was technically difficult with many images being suboptimal in quality. The study was technically limited with all images being suboptimal in quality. Images were not obtained from all of the standard acoustic windows due to the limited scope of the study. Poor endocardial visualisation and poor doppler and valvylar interogation and visualisation. Reason For Study: NSTEMI History: NSTEMI. Ordering Physician: ADAN MORLEY Performed By: Michell Sanders Interpretation Summary The posterior wall,anteroseptum, the IV septum, and lateral wall probably contract normally.In limited views LVEF is > than 60%.Cannot comment on the rest of the LV jc which are not visualised. Probably no stenotic and no regurgitant valvular lesions.No pericardial effusion. MMode/2D Measurements & Calculations RVDd: 4.2 cm LVIDd: 5.1 cm FS: 39.5 % LVOT diam: 1.8 cm IVSd: 1.2 cm LVIDs: 3.1 cm EDV(Teich): 124.7 ml LVOT area: 2.6 cm2 LVPWd: 1.3 cm ESV(Teich): 37.7 ml EF(Teich): 69.8 % Doppler Measurements & Calculations MV E max johana: MV dec slope: Ao V2 max: LV V1 max P.7 cm/sec 546.4 cm/sec2 142.4 cm/sec 2.7 mmHg MV A max johana: MV dec time: Ao max PG: LV V1 max: 77.9 cm/sec 0.22 sec 8.1 mmHg 82.1 cm/sec MV E/A: 1.6 CACHORRO(V,D): 1.5 cm2 PA V2 max: 109.3 cm/sec PA max P.8 mmHg Left Ventricle The left ventricle is grossly normal size. There is mild concentric left ventricular hypertrophy. The posterior wall,anteroseptum, the IV septum, and lateral wall probably contract normally.In limited views LVEF is > than 60%.Cannot comment on the rest of the LV jc which are not visualised. Probably no stenotic and no regurgitant valvular lesions.No pericardial effusion. : ADAN MORLEY > Kim Jean-Baptiste
[2017-11-06] MEDS ORDERED: PROMETHAZINE HCL INJ 25 MG/1 ML VIAL IV PRN (21:30)
--- NOTE | 2017-11-06 23:56 | PROGRESS NOTE E ---
Progress Note NAME: ZAHIDA MARTIN : 1965 AGE: 52Y DATE: 11/06/2017 ROOM: 329 SUBJECTIVE: Note that the patient had some nausea with some retching and after he vomited a small quantity he feels better. There was no hemoptysis. There is no shortness of breath. There is no chest pain or discomfort. There is no PND or orthopnea. There is no leg edema. There is no arrhythmia seen on the monitor. There is no palpitations. There is no dizziness, syncope, or near syncope. He has not TIA or CVA symptoms. There is no ventricular or atrial arrhythmia seen on the monitor. OBJECTIVE: GENERAL: On examination the patient is morbidly obese, but at present in no acute distress once his nausea subsided after he vomited a small amount. He is well-groomed. He does not appear to be agitated or depressed. VITAL SIGNS: He is afebrile. His pulse is 77 beats per minute, blood pressure 127/87, respirations are 14 per minute, O2 saturations are 93% on 2 liters nasal cannula. HEENT: Head is atraumatic, normocephalic. Eyes: Pupils are equal, round and regular, reactive to light and accommodation. Extraocular movements are normal. There is no conjunctival pallor. There is no scleral icterus. ENT is negative. NECK: Supple. There is no JVD. There is no lymphadenopathy. There is no goiter. Carotids are equal. There is no bruit. Trachea is central. LUNGS: Clear to auscultation and percussion without any rhonchi, rales, or wheezing. HEART: S1, S2 is heard. There is no S3 gallop. There is no S4 gallop. There is a systolic murmur in the left sternal border and the apex without radiation. There is no rub. ABDOMEN: Obese, nontender. There is no hepatosplenomegaly. Bowel sounds are well heard. There are no tender areas or masses. There is no rebound, guarding, or rigidity. EXTREMITIES: Femorals are diminished. Femorals are deep. There are no femoral bruits. Leg pulses are diminished. There is no pedal edema. There is no cyanosis or clubbing. There is no DVT or cellulitis. There is no calf tenderness. There is scar of surgery over the left knee. There is also a healed scar in the medial aspect of his right inner leg near the right ankle. CENTRAL NERVOUS SYSTEM: The patient is conscious, awake, alert and oriented x3 with no focal deficits. PSYCHIATRIC: The patient's judgment and insight are intact. His affect is normal. DIAGNOSTICS: The patient's rhythm is in sinus rhythm with borderline T abnormality, nondiagnostic in leads III and aVF. The patient's white count is 9200, hemoglobin is 13.1, hematocrit is 39.5, platelet count is 136,000. The patient's troponin I has come down to 0.876. His sodium is 142.2, potassium is 4.8, chloride is 102, CO2 is 34. The patient's BUN is 18, creatinine 0.78, GFR is greater than 60, glucose is 128. His magnesium is 2.4. His phosphorus is 3.1. His calcium is 8.8. His liver function test show abnormal AST of 60, ALT of 84, and his alk-phos is 62. His albumin is 3.5. His total protein is 6.7. IMPRESSION: 1. ELEVATED TROPONIN I AND CPK-MB, MOST LIKELY THIS IS SECONDARY TO HYPOXEMIA, HYPOTENSION, ELEVATED LACTIC ACID CAUSING POOR PERFUSION AND ALSO THE PATIENT HAD ACUTE RENAL INSUFFICIENCY. 2. NO DEFINITE EVIDENCE OF NON-ST ELEVATION ME. THIS IS TYPE 2/SUPPLY- DEMAND MISMATCH TYPE OF ME AND HENCE WOULD TREAT THE PATIENT'S CAUSE, WHICH IS BEING TREATED. 3. RESPIRATORY FAILURE SECONDARY TO DRUG OVERDOSE, RESOLVED. 4. HYPERTENSION, WELL-CONTROLLED. 5. CHRONIC PAIN SYNDROME. 6. SYMPTOM OF OBSTRUCTIVE SLEEP APNEA. 7. DEPRESSION. 8. ATYPICAL CHEST PRESSURE, NO DEFINITE EVIDENCE OF ME CLINICALLY. 9. ABNORMAL LFTs, STILL ABNORMAL. WOULD SERIALLY CHECK THE LFTs. 10. MORBID OBESITY. 11. SUBOPTIMAL ECHOCARDIOGRAM, WHICH IS A POOR QUALITY STUDY. THE POSTERIOR WALL, ANTERIOR SEPTUM, *------* SEPTUM, AND LATERAL WALL PROBABLY CONTRACT NORMALLY. IN THE LIMITED VIEWS LV EJECTION FRACTION IS GREATER THAN 60%. CANNOT COMMENT ON THE REST OF THE LV FONTENOT. PROBABLY NO STENOTIC AND NO REGURGITANT VALVULAR LESIONS, NOL PERICARDIAL EFFUSION. UNABLE TO CALCULATE THE RIGHT VENTRICULAR SYSTOLIC PRESSURE TO LACK OF TR JET. This has been discussed with the patient and the patient's . RECOMMENDATIONS: Would continue current treatment. Would recheck the patient's LFT. Note his medications have been reviewed. Would recommend that the patient have a stress test. This can be done as an outpatient once the patient's liver function test have normalized. TIME SPENT: Note 40 minutes spent on this patient. Medical decision making is of moderate complexity. We will recheck the patient's EKG and troponin I in the a.m. More than 50% of the time spent on direct patient care. Discussed with the hospitalist taking care of the patient and also the other caregiving providers on the case. My review and plan has been reviewed and discussed with the attending physician so that there is coordination of care in the management of the patient. DICTATING PHYSICIAN: RUTHIE FRANCOIS M.D. [id number] SIDRA#: [id number] ID: [id number] JOB#: [id number] ACCT: [id number] cc: >
[2017-11-07 05:36] LABS: CREATINE KINASE MB 1.71 ng/mL (<4.55)
[2017-11-07 05:38] LABS: TROPONIN I 0.711 ng/mL
--- NOTE | 2017-11-07 08:20 | RADIOLOGY REPORT (SQ) ---
EXAM DESCRIPTION: U/S ABDOMEN LIMITED W/O DOP COMPLETED DATE/TIME: 11/06/2017 9:40 pm REASON FOR STUDY: hyperbili and elevated LFTs COMPARISON: CT abdomen and pelvis 08/20/2017 TECHNIQUE: Dynamic and static grayscale images acquired of the abdomen and recorded on PACS. Additio nal selected color Doppler and spectral images recorded. LIMITATIONS: Bowel gas, obesity. Very limited scan FINDINGS: PANCREAS: Not visualized. LIVER: Echogenic from fatty infiltration, difficult to visualize LIVER VASCULATURE: Not able to assess GALLBLADDER: Very limited view, no gross gallstones. ULTRASOUND-DETECTED HOWELL'S SIGN: Negative. INTRAHEPATIC DUCTS AND COMMON DUCT: Not well seen INFERIOR VENA CAVA: Not visualized AORTA: Not visualized RIGHT KIDNEY: 11.5 cm in length. No gross hydronephrosis PERITONEAL AND RIGHT PLEURAL SPACE: No ascites or effusions. OTHER: No other significant findings. IMPRESSION: Very limited study. Fatty liver. No gallstones. TECHNICAL DOCUMENTATION: JOB ID: [id number] Mobile [employer]- All Rights Reserved Reading location - IP/workstation name: [email or web address]
[2017-11-07 08:30] LABS: ABSOLUTE EOSINOPHILS # (AUTO) 0.2 10^3/uL (0.0-0.6); ABSOLUTE LYMPHOCYTES (AUTO) 1.4 10^3/uL (0.5-4.7); ABSOLUTE MONOCYTES (AUTO) 0.7 10^3/uL (0.1-1.4); ABSOLUTE NEUT (AUTO) 6.8 10^3/uL (1.7-8.2); BASOPHILS % (AUTO) 0.4 % (0-2); EOSINOPHILS % (AUTO) 1.8 % (0-6); HEMATOCRIT 37.9 % (37.9-51.0); HEMOGLOBIN 12.7 g/dL (13.5-17.0); LYMPHOCYTES % (AUTO) 15.6 % (13-45); MEAN CORPUSCULAR HEMOGLOBIN 28.9 pg (27.0-33.4); MEAN CORPUSCULAR HGB CONC 33.5 g/dL (32.0-36.0); MEAN CORPUSCULAR VOLUME 86 fl (80-97); MONOCYTES % (AUTO) 7.5 % (3-13); PLATELET COUNT 148 10^3/uL (150-450); RED BLOOD COUNT 4.39 10^6/uL (4.35-5.55); RED CELL DISTRIBUTION WIDTH 15.6 % (11.5-14.0); SEGMENTED NEUTROPHILS % (AUTO) 74.7 % (42-78); TOTAL CELLS COUNTED % (AUTO) 100 %; WHITE BLOOD COUNT 9.1 10^3/uL (4.0-10.5)
[2017-11-07 08:43] LABS: ALANINE AMINOTRANSFERASE 66 U/L (21-72); ALBUMIN 3.4 g/dL (3.5-5.0); ALKALINE PHOSPHATASE 64 U/L (38-126); ANION GAP 9 (5-19); ASPARTATE AMINO TRANSFERASE 39 U/L (17-59); BILIRUBIN,DIRECT 0.5 mg/dL (0.0-0.4); BILIRUBIN,TOTAL 0.5 mg/dL (0.2-1.3); BLOOD UREA NITROGEN 21 mg/dL (7-20); CALCIUM 9.1 mg/dL (8.4-10.2); CARBON DIOXIDE 33 mmol/L (22-30); CHLORIDE 104 mmol/L (98-107); GLUCOSE 116 mg/dL (75-110); POTASSIUM 4.8 mmol/L (3.6-5.0); SODIUM 145.7 mmol/L (137-145); TOTAL PROTEIN 6.4 g/dL (6.3-8.2)
[2017-11-07] MEDS: DULOXETINE HCL 30 MG CAPSULE.DR PO SCH ×2 (09:16→18:08)
[2017-11-07] MEDS: ENOXAPARIN SODIUM INJ 40 MG/0.4 ML DISP.SYRIN SUBCUT SCH (09:16)
[2017-11-07] MEDS ORDERED: LISINOPRIL 10 MG TABLET PO SCH (10:00)
--- NOTE | 2017-11-07 10:39 | EKG REPORT ---
SEVERITY:- ABNORMAL ECG - SINUS ARRHYTHMIA : Confirmed by: Wan Aguila MD 07-Nov-2017 10:38:42
--- NOTE | 2017-11-07 16:39 | PDOC DISCHARGE SUMMARY ---
General - Admit/Disc Date/PCP Admission Date/Primary Care Provider: 11/04/17 16:40 DOLLY CACERES MD Discharge Date: 11/07/17 - Discharge Diagnosis (1) JHON (acute kidney injury) Is this a current diagnosis for this admission?: Yes (2) Altered mental status Is this a current diagnosis for this admission?: Yes (3) Drug overdose Is this a current diagnosis for this admission?: Yes (4) Elevated LFTs Is this a current diagnosis for this admission?: Yes (5) Elevated troponin Is this a current diagnosis for this admission?: Yes (6) Hypotension Is this a current diagnosis for this admission?: Yes - Additional Information Prescriptions: Duloxetine HCl [Cymbalta 30 mg Capsule.] 30 mg PO BID #60 capsule. Home Medications: Lisinopril [Prinivil 10 mg Tablet] 30 mg PO DAILY 11/05/17 Duloxetine HCl [Cymbalta 30 mg Capsule.] 30 mg PO BID #60 capsule. 11/07/17 Lisinopril [Prinivil 10 mg Tablet] 10 mg PO DAILY tablet 11/07/17 History of Present Illness History of Present Illness: ZAHIDA MARTIN is a 52 year old male Hospital Course Hospital Course: This 52-year-old male was found unresponsive at home by his and brought to the emergency room and diagnosed with drug overdose and placed in the ICU for close observation. In the ICU all his home medications were held. [facility] was contacted and psych was also consulted. Most likely his status was secondary to use of OTC medications, gabapentin and alcohol use. He was hypertensive and hence started on levo fed in the ICU but later titrated off. He also had elevated LFTs and lactic acid which were also considered as part of his overall condition secondary to his overdose. He did get a abdominal ultrasound which did not show anything but a fatty liver. Due to his elevated LFTs I did order a right upper quadrant ultrasound but his LFTs slowly trended and hence given that is the weekend I canceled order. I spoke with him about this and that he should follow-up with the GI doctor or his PCP. His altered mental status resolved and he was back to baseline the next day. He was downgraded to IMCU. He is acute kidney injury also resolved with IV fluid hydration. He had elevated troponins and cardiology was consulted. As per cardiology this is likely secondary to hypoxemia, hypertension, elevated lactic acid and is acute kidney injury. He is to follow-up with cardiology as an outpatient. His echo showed preserved EF. All his echo findings were discussed by the insurance claim auditor with the patient. During his admission he was also started on CPAP overnight and was told to talk to his PCP about sleep study. Patient requested discharge on 11/07/2017. He was evaluated by psych and cleared. He was started on Cymbalta 60 mg twice daily while in the hospital and was discharged on it. He was also continued on his lisinopril 10 mg daily. He was told to avoid nephrotoxic agent for the next 1-2 weeks. He was told to follow-up with his PCP within 1 week. He was tolerating diet, and back to baseline health. Physical Exam Vital Signs: Temp Pulse Resp BP Pulse Ox 97.4 F 75 20 119/70 100 11/07/17 12:16 11/07/17 14:00 11/07/17 12:16 11/07/17 12:16 11/07/17 12:16 Intake & Output 11/06/17 11/07/17 11/08/17 06:59 06:59 06:59 Intake Total 1561 55 500 Output Total 1725 300 Balance -164 -245 500 Weight 395 lb 1.094 oz 391 lb 8.655 oz Results Laboratory Results: 11/07/17 04:37 11/07/17 04:37 11/07/17 11/07/17 04:37 04:37 WBC 9.1 RBC 4.39 Hgb 12.7 L Hct 37.9 MCV 86 MCH 28.9 MCHC 33.5 RDW 15.6 H Plt Count 148 L Seg Neutrophils % 74.7 Lymphocytes % 15.6 Monocytes % 7.5 Eosinophils % 1.8 Basophils % 0.4 Absolute Neutrophils 6.8 Absolute Lymphocytes 1.4 Absolute Monocytes 0.7 Absolute Eosinophils 0.2 Absolute Basophils 0.0 Sodium 145.7 H Potassium 4.8 Chloride 104 Carbon Dioxide 33 H Anion Gap 9 BUN 21 H Creatinine 0.80 Est GFR ( Amer) > 60 Est GFR (Non-Af Amer) > 60 Glucose 116 H Calcium 9.1 Total Bilirubin 0.5 AST 39 ALT 66 Alkaline Phosphatase 64 Total Protein 6.4 Albumin 3.4 L 11/04/17 11/04/17 11/04/17 16:45 17:11 18:00 Creatine Kinase CK-MB (CK-2) Troponin I Cancelled Cancelled 0.877 NT-Pro-B Natriuret Pep 11/04/17 11/05/17 11/05/17 21:56 11:15 22:12 Creatine Kinase 95 CK-MB (CK-2) 12.80 H Troponin I 1.780 1.890 NT-Pro-B Natriuret Pep 624 11/05/17 11/06/17 11/07/17 22:12 03:54 04:37 Creatine Kinase 50 L CK-MB (CK-2) 7.22 H Troponin I 1.110 0.876 NT-Pro-B Natriuret Pep 11/07/17 04:37 Creatine Kinase CK-MB (CK-2) 1.71 Troponin I 0.711 NT-Pro-B Natriuret Pep Impressions: Chest X-Ray 11/04/17 15:24 IMPRESSION: Cardiomegaly without robel pulmonary edema. Low lung volumes. Abdomen Ultrasound 11/06/17 00:00 IMPRESSION: Very limited study. Fatty liver. No gallstones. Head CT 11/06/17 00:00 IMPRESSION: No acute intracranial changes Inflammatory changes paranasal sinuses EVIDENCE OF ACUTE STROKE: NO. Qualifiers - * PATIENT BEING DISCHARGED WITH ANY OF THE FOLLOWING DIAGNOSIS: No Plan Time Spent: Less than 30 Minutes
[2017-11-07 17:22] VITALS: BP 107/53
--- NOTE | 2017-11-07 22:50 | PROGRESS NOTE E ---
Progress Note NAME: ZAHIDA MARTIN : 1965 AGE: 52Y DATE: 11/07/2017 ROOM: 329 SUBJECTIVE: The patient denies any chest pain or discomfort. There is no PND, orthopnea. There is no arrhythmia seen. There are no palpitations. There are no TIA or CVA symptoms. The patient is awake, alert, and oriented x3. OBJECTIVE: GENERAL: On examination the patient is morbidly obese. He is well-groomed in no acute distress. VITAL SIGNS: He is afebrile with a temperature of 98.1 degrees Fahrenheit, pulse is 65 BPM, blood pressure is 128/79, respirations are 20 per minute, O2 saturations are 92% on room air. HEENT: Head is atraumatic, normocephalic. Eyes: Pupils are equal, round and regular, reactive to light and accommodation. Extraocular movements are normal. There is no conjunctival pallor. There is no scleral icterus. ENT is negative. NECK: Supple. There is no JVD. There is no lymphadenopathy. There is no goiter. Carotids are equal. There is no bruit. Trachea is central. LUNGS: Clear to auscultation and percussion without any rhonchi, rales, or wheezing. HEART: S1, S2 is heard. There is no S3 gallop. There is no S4 gallop. There is a systolic murmur in the left sternal border and the apex without radiation. There is no rub. ABDOMEN: Obese, nontender. There is no hepatosplenomegaly. Bowel sounds are well heard. There are no tender areas or masses. There is no rebound, guarding, or rigidity. EXTREMITIES: Femorals are diminished. Femorals are deep. There are no femoral bruits. Leg pulses are diminished. There is no pedal edema. There is no cyanosis or clubbing. There is no DVT or cellulitis. There is no calf tenderness. Capillary refill is normal. CENTRAL NERVOUS SYSTEM: The patient is conscious, awake, alert and oriented x3 with no focal deficits. PSYCHIATRIC: The patient's judgment and insight are intact. His affect is normal. DIAGNOSTICS: The patient's EKG shows wandering atrial pacemaker, otherwise no acute ischemia. The patient's white count is 9100, hemoglobin is 12.7, hematocrit is 37.9, platelet count is 148,000. The patient's sodium is 145.7, potassium 4.8, chloride is 104, CO2 is 33. The patient's BUN is 21, creatinine 0.80, GFR is greater than 60. His liver function tests are normal with a slightly elevated direct bilirubin of 0.5. His troponin I has come down to 0.711. His albumin is 3.4, total protein is 6.4. IMPRESSION: 1. ELEVATED TROPONIN I SECONDARY TO HYPOXEMIA, HYPOTENSION, AND ELEVATED LACTIC ACID CAUSING POOR PERFUSION AND ALSO THE PATIENT HAD ACUTE RENAL INSUFFICIENCY ON ADMISSION. 2. NO DEFINITE EVIDENCE OF NON-ST ELEVATION [place]. THIS IS TYPE 2 W[place] DUE TO SUPPLY DEMAND MISMATCH TYPE OF W[place] AND, HENCE, WE WILL TREAT THE PATIENT'S CAUSE, WHICH HAS BEEN TREATED. 3. RESPIRATORY FAILURE SECONDARY TO DRUG OVERDOSE, RESOLVED. 4. HYPERTENSION, WELL-CONTROLLED. 5. CHRONIC PAIN SYNDROME. 6. SYMPTOM OF OBSTRUCTIVE SLEEP APNEA. 7. DEPRESSION. 8. ATYPICAL CHEST PRESSURE, NO DEFINITE EVIDENCE OF [place] CLINICALLY. 9. ABNORMAL LFTs, NOW NORMALIZED. 10. MORBID OBESITY. RECOMMENDATIONS: The patient is stable. Would recommend discharging the patient on his current medications. Would continue the patient's aspirin. Would get an outpatient sleep study and also would recommend that the patient have IV Lexiscan Cardiolite stress test as an outpatient. This has been discussed with the patient. The patient has my telephone number and desires to follow up with me. Will follow up the patient in the office. Discussed with the hospitalist taking care of the patient. TIME SPENT: Note 40 minutes spent on this patient with more than 50% of the time spent on direct patient care. Medical decision making now is of moderate complexity. Also his medications have been reviewed and discussed further management plans along with medications with the attending physician on the case. We will sign off. DICTATING PHYSICIAN: RUTHIE FRANCOIS M.D. [id number] INDIOY#: [id number] ID: [id number] JOB#: [id number] ACCT: [id number] cc: >
== END 2017-11-07 18:24 | disposition home or self-care (01) | DRG 917 ==
LOC: ER 12:46 → EH 16:40 → ICU 18:55 → 3S 11-06 21:12
PROVIDERS: ADMIT Student in an Organized Health Care Education/Training Program; ATTEND Student in an Organized Health Care Education/Training Program
PROC: 5A09457 Assistance with Respiratory Ventilation, 24-96 Consecutive Hours, Continuous Positive Airway Pressure (ICD-10-PCS; principal; 2017-11-04)
DX: T42.6X1A Poisoning by other antiepileptic and sedative-hypnotic drugs, accidental (unintentional), initial encounter (principal); J96.91 Respiratory failure, unspecified with hypoxia; N17.9 Acute kidney failure, unspecified; Z68.43 Body mass index [BMI] 50.0-59.9, adult; G43.909 Migraine, unspecified, not intractable, without status migrainosus; I10 Essential (primary) hypertension; F32.9 Major depressive disorder, single episode, unspecified; F41.9 Anxiety disorder, unspecified; I95.89 Other hypotension; R09.02 Hypoxemia; G89.4 Chronic pain syndrome; K76.0 Fatty (change of) liver, not elsewhere classified; M54.9 Dorsalgia, unspecified; M25.561 Pain in right knee; T65.891A Toxic effect of other specified substances, accidental (unintentional), initial encounter; E66.01 Morbid (severe) obesity due to excess calories; G47.33 Obstructive sleep apnea (adult) (pediatric); Y92.9 Unspecified place or not applicable; Z79.899 Other long term (current) drug therapy; Z88.6 Allergy status to analgesic agent; Z82.61 Family history of arthritis; Z83.6 Family history of other diseases of the respiratory system; Z82.49 Family history of ischemic heart disease and other diseases of the circulatory system; Z82.3 Family history of stroke; Z80.9 Family history of malignant neoplasm, unspecified
CPT/HCPCS: 36415; 70450; 71045; 76705; 80048; 80053; 80307; 81001; 82550; 82553; 83605; 83735; 83880; 84100; 84443; 84484; 85025; 85610; 85730; 93005; 93010; 93306; 94660; 96361; 96365; 96372; 96375; 96376; 99291; J0610; J1650; J1815; J2060; J2310; J2550; J3490; J7030; J7060; S0119

== ENCOUNTER 2018-03-27 11:14 | Emergency (ER) | payer MEDICAID ==
[2018-03-27 11:20] VITALS: BP 125/96
[2018-03-27] MEDS ORDERED: IBUPROFEN 800 MG TABLET PO ONE (11:57)
[2018-03-27] MEDS ORDERED: PREDNISONE 20 MG TABLET PO ONE (11:57)
--- NOTE | 2018-03-27 12:04 | ER Document Report ---
ED Extremity Problem, Upper - General Chief Complaint: Shoulder Pain Stated Complaint: FALL/LEFT SHOULDER PAIN Time Seen by Provider: 03/27/18 11:36 Mode of Arrival: Ambulatory Information source: Patient Notes: 53-year-old male presented to ED for concern of left shoulder pain. He states he fell from a pool ladder has had approximately 10 feet off the ground in November. He states he has had pain in the shoulder since the fall and Tj since then. He denies following up with anybody since the fall. He states he has had numerous people told him that was probably a rotator cuff. He states he has range of motion but it does hurt. He is alert and oriented respirations regular and unlabored speaking in full sentences walks with a even steady gait. He is in no acute distress at the moment but has pain with any movement of his shoulder. TRAVEL OUTSIDE OF THE [place] IN LAST 30 DAYS: No - HPI Patient complains to provider of: Pain, Left Onset: Other Recent injury: No - Since November Quality of pain: Sharp, Throbbing Severity of pain: Moderate Pain Level: 3 Context: Fall - In November Associated symptoms: None Exacerbated by: Movement, Exertion Relieved by: Rest, Positioning Similar symptoms previously: Yes Recently seen / treated by doctor: No - Related Data Allergies/Adverse Reactions: codeine [From Tylenol-Codeine #3] Allergy (Verified 11/04/17 12:58) hydrocodone Allergy (Verified 11/04/17 12:58) Past Medical History - General Information source: Patient - Social History Smoking Status: Never Smoker Frequency of alcohol use: None Drug Abuse: None Lives with: Spouse/Significant other Family History: Arthritis, CAD, COPD, CVA, Malignancy Patient has suicidal ideation: No Patient has homicidal ideation: No - Past Medical History Cardiac Medical History: Reports: Hx Hypertension, Other - Pericardial effusion Pulmonary Medical History: Reports: None EENT Medical History: Reports: None Neurological Medical History: Reports: Hx Migraine Endocrine Medical History: Reports: None Renal/ Medical History: Reports: Hx Testicular Torsion Malignancy Medical History: Reports None GI Medical History: Reports: Hx Diverticulitis, Hx Gastritis, Hx Ulcer, Hx Endoscopy Musculoskeletal Medical History: Reports Hx Arthritis - KNEE, Reports Hx Musculoskeletal Deformity, Reports Hx Musculoskeletal Trauma Skin Medical History: Reports None Psychiatric Medical History: Reports: Hx Anxiety, Hx Depression Traumatic Medical History: Reports: Hx Fractures Infectious Medical History: Reports: None Past Surgical History: Reports: Hx Orthopedic Surgery - Surgery to right ankle foot infection left knee surgery, Hx Testicular Surgery - Testicular torsion, Other - Aspiration from pericardial effusion - Immunizations Hx Diphtheria, Pertussis, Tetanus Vaccination: Yes Review of Systems - Review of Systems Notes: REVIEW OF SYSTEMS: CONSTITUTIONAL : Denies fever, chills, or sweats. Denies recent illness. EENT: Denies eye, ear, throat, or mouth pain or symptoms. Denies nasal or sinus congestion or discharge. Denies throat, tongue, or mouth swelling or difficulty swallowing. CARDIOVASCULAR: Denies chest pain. Denies palpitations or racing or irregular heart beat. Denies ankle edema. RESPIRATORY: Denies cough, cold, or chest congestion. Denies shortness of breath, difficulty breathing, or wheezing. GASTROINTESTINAL: Denies abdominal pain or distention. Denies nausea, vomiting , or diarrhea. Denies blood in vomitus, stools, or per rectum. Denies black, tarry stools. Denies constipation. GENITOURINARY: Denies difficulty urinating, painful urination, burning, frequency, blood in urine, or discharge. MUSCULOSKELETAL: Denies back or neck pain or stiffness. Pain to left shoulder with any movement since November when he fell off of a pool ladder. He states he has not followed up with anybody but his neighbor has hearing that he needed to come and get followed up. He states that the pain is not gotten any better and the smell but he is not follow-up with her primary doctor or an patient service specialist. SKIN: Denies rash, lesions or sores. HEMATOLOGIC : Denies easy bruising or bleeding. LYMPHATIC: Denies swollen, enlarged glands. NEUROLOGICAL: Denies confusion or altered mental status. Denies passing out or loss of consciousness. Denies dizziness or lightheadedness. Denies headache. Denies weakness or paralysis or loss of use of either side. Denies problems with gait or speech. Denies sensory loss, numbness, or tingling. Denies seizures. PSYCHIATRIC: Denies anxiety or stress. Denies depression, suicidal ideation, or homicidal ideation. ALL OTHER SYSTEMS REVIEWED AND NEGATIVE. Dictation was performed using [email or web address] voice recognition software PHYSICAL EXAMINATION: GENERAL: Well-appearing, well-nourished and in no acute distress. HEAD: Atraumatic, normocephalic. EYES: Pupils equal round and reactive to light, extraocular movements intact, sclera anicteric, conjunctiva are normal. ENT: Nares patent, oropharynx clear without exudates. Moist mucous membranes. NECK: Normal range of motion, supple without lymphadenopathy LUNGS: Breath sounds clear to auscultation bilaterally and equal. No wheezes rales or rhonchi. HEART: Regular rate and rhythm without murmurs ABDOMEN: Soft, nontender, nondistended abdomen. No guarding, no rebound. No masses appreciated. Musculoskeletal: Tenderness to left shoulder to palpation and to any range of motion. He does have full range of motion but it is painful., no pitting or edema. No cyanosis. NEUROLOGICAL: Cranial nerves grossly intact. Normal speech, normal gait. Normal sensory, motor exams PSYCH: Normal mood, normal affect. SKIN: Warm, Dry, normal turgor, no rashes or lesions noted. Physical Exam - Vital signs Vitals: Temp Pulse Resp BP Pulse Ox 98.1 F 89 18 125/96 H 98 03/27/18 11:16 03/27/18 11:16 03/27/18 11:16 03/27/18 11:16 03/27/18 11:16 Course - Re-evaluation Re-evalutation: 03/27/18 21:48 Patient was treated with ibuprofen and prednisone encouraged to follow-up with orthopedic telephone on Thursday to use warm and cold packs for comfort and to please follow-up on Thursday by telephone to get an appointment. - Vital Signs Vital signs: Temp Pulse Resp BP Pulse Ox 98.1 F 89 18 125/96 H 98 03/27/18 11:16 03/27/18 11:16 03/27/18 11:16 03/27/18 11:16 03/27/18 11:16 Discharge - Discharge Clinical Impression: left shoulder pain since november Condition: Stable Disposition: HOME, SELF-CARE Additional Instructions: Shoulder Injury You have injured your shoulder. This usually results from stretching or tearing of the tendons during trauma. Time and protection are required in order to heal properly. Many injuries are quite disabling, and should be taken seriously. Initial treatment includes cold packs and a sling to rest the shoulder. The physician has assessed the seriousness of your injury, and has outlined a treatment plan. Understand that this treatment may change, depending on how you progress. If a re-examination was recommended, it is important that you follow up as instructed. Some shoulder injuries (such as partial tear of the rotator cuff) are only suspected after you've failed to improve. Call us if there's severe pain, numbness, or loss of function. Exercise Program for the Shoulder Since the shoulder moves in so many directions, the joint attachment is weak. Muscles provide most of the stability to the shoulder. You must exercise your shoulder to prevent painful instability or stiffening. PASSIVE - These may be begun within a few days of the injury. While standing, lean forward, allowing the arm to hang down towards the floor. Move the arm in small circles while slowly twisting your chest towards and away from the hanging arm. Do this for one minute. ACTIVE - These may be performed when the doctor gives permission. Begin with the arms at the sides. Raise the arms forward (shoulder's width apart) until they reach shoulder level. Then slowly swing both arms back until they are aiming straight out away from each other. Then bring them forward again, and finally, lower them to your sides. Repeat 20 to 30 times. As you improve, put weights in your hands for the exercise. Start with one pound, and work up to 10 pounds. Never use more than is comfortable. Athletes may work up to 30 pounds. Ibuprofen Ibuprofen is an excellent, safe drug for pain control. In addition, it has potent antiinflammatory effects which are beneficial, especially in the treatment of injuries, arthritis, or tendonitis. It's best to take ibuprofen with food. Persons with ulcer disease or allergy to aspirin should notify their physician of this before taking ibuprofen. Take the medication exactly as prescribed. Don't take additional doses unless instructed to do so by your doctor. If you develop wheezing, shortness of breath, hives, faintness, stomach pain, vomiting, or dark black stools, return for re-evaluation at once. Ice Packs Apply ice packs frequently against the painful area. Many different schedules are recommended, such as "20 minutes on, 20 minutes off" or "one hour ice, two hours rest." If you need to work, you may need to go longer between ice treatments. You should plan to have the area ice packed AT LEAST one fourth of the time. The ice should be applied over the wrap, tape, or splint, or over a layer of cloth -- not directly against the skin. Some ice bags have a built-in cloth and can be put directly on the skin. STEROID MEDICATION: You have been given a medicine of the cortisone/steroid class. This medication is used to control inflammation or allergy. It is usually only given for a short period of time, until the acute process subsides. There are usually no side effects from short-term use of cortisone-like medications. Some persons feel an increased sense of well-being and are not sleepy at bedtime. Long-term use of cortisone medications is best avoided, unless required for a severe condition. If your condition does not remit, or relapses after the course of corticosteroid medication, you should consult your physician. I have written you a prescription for Compazine that you can take with ibuprofen and Benadryl for your headaches that she states to have a history of had a migraine last night these will help this pain. FOLLOW-UP CARE: If you have been referred to a physician for follow-up care, call the physician s office for an appointment as you were instructed or within the next two days. If you experience worsening or a significant change in your symptoms, notify the physician immediately or return to the Emergency Department at any time for re-evaluation. Prescriptions: Prochlorperazine Maleate [Compazine 10 mg Tablet] 10 mg PO Q6HP PRN #14 tablet PRN Reason: Ibuprofen [Motrin 800 mg Tablet] 800 mg PO Q8HP PRN #14 tab PRN Reason: Prednisone [Deltasone 20 mg Tablet] 3 tab PO DAILY 5 Days tablet Forms: Elevated Blood Pressure, Return to Work Referrals: ABBY MCCAIN PA-C [Primary Care Provider] - Follow up as needed XIMENA GONZALES DO [ACTIVE STAFF] - Follow up as needed
== END 2018-03-27 12:15 | disposition home or self-care (01) ==
LOC: ER 11:14
DX: M25.512 Pain in left shoulder (principal); W11.XXXA Fall on and from ladder, initial encounter; I10 Essential (primary) hypertension; Z88.5 Allergy status to narcotic agent
CPT/HCPCS: 99283; J3490; J7512

== ENCOUNTER → 2018-07-09 | Outpatient (CLI) | payer MEDICAID ==
--- NOTE | 2018-07-10 15:22 | RADIOLOGY REPORT (SQ) ---
EXAM DESCRIPTION: SHOULDER LEFT 2 OR MORE VIEWS COMPLETED DATE/TIME: 07/09/2018 4:39 pm REASON FOR STUDY: CHRONIC LEFT SHOULDER PAIN M54.16 RADICULOPATHY, LUMBAR REGION M25.512 PAIN IN L EFT SHOULDER Fell off the ladder 8 months ago, pain since. COMPARISON: None. NUMBER OF VIEWS: Three view. TECHNIQUE: Internal rotation, external rotation, and Y view images acquired of the left shoulder. LIMITATIONS: None. FINDINGS: MINERALIZATION: Normal. BONES: No acute fracture or dislocation. No worrisome bone lesions. GLENOHUMERAL JOINT: No significan t findings. ACROMIOCLAVICULAR JOINT: Degenerative changes with joint space narrowing and osteophytosis. SOFT TISSUES: No calcifications. VISUALIZED RIBS, SPINE, AND LUNG: No other significant finding. IMPRESSION: Degenerative changes at the acromioclavicular joint. Otherwise, no acute radiographic f indings at the left shoulder. TECHNICAL DOCUMENTATION: JOB ID: [id number] [employer]- All Rights Reserved Reading location - IP/workstation name: [email or web address]
--- NOTE | 2018-07-10 15:29 | RADIOLOGY REPORT (SQ) ---
EXAM DESCRIPTION: L SPINE WHOLE COMPLETED DATE/TIME: 07/09/2018 4:39 pm REASON FOR STUDY: CHRONIC RADICULAR LUMBAR PAIN M54.16 RADICULOPATHY, LUMBAR REGION M25.512 PAIN I N LEFT SHOULDER COMPARISON: Lumbar spine x-ray 09/15/2017 NUMBER OF VIEWS: Five views including obliques. TECHNIQUE: AP, lateral, oblique, and sacral radiographic images acquired of the lumbar spine. LIMITATIONS: None. FINDINGS: MINERALIZATION: Normal. SEGMENTATION: Normal. No transitional anatomy. ALIGNMENT: Mild anterolisthesis of L4 on L5, not significantly changed in the interval. VERTEBRAE: Maintained height. No compression fracture. DISCS: Multilevel disc space narrowing with osteophytes. POSTERIOR ELEMENTS: Pedicles and facets are intact. No pars defect. Facet arthropathy is present. HARDWARE: None in the spine. PARASPINAL SOFT TISSUES: Normal. PELVIS: SI joints intact. IMPRESSION: Multilevel degenerative changes at the lumbar spine with no radiographic evidence for co mpression fracture. TECHNICAL DOCUMENTATION: JOB ID: [id number] [place]-[id number] 2010 [employer]- All Rights Reserved Reading location - IP/workstation name: [email or web address]
== END ==
LOC: RAD 16:18
PROVIDERS: ATTEND Family Medicine
DX: M54.16 Radiculopathy, lumbar region (principal); M25.512 Pain in left shoulder; M47.896 Other spondylosis, lumbar region; M19.012 Primary osteoarthritis, left shoulder
CPT/HCPCS: 72110

== ENCOUNTER 2018-09-18 16:02 | Emergency (ER) | payer SELFPAY ==
[2018-09-18] MEDS ORDERED: HYDROMORPHONE HCL 2 MG TABLET PO ONE (16:51)
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
[2018-09-18] MEDS ORDERED: PROMETHAZINE HCL 25 MG TABLET PO ONE (17:03)
--- NOTE | 2018-09-18 17:31 | RADIOLOGY REPORT (SQ) ---
EXAM DESCRIPTION: L SPINE WHOLE COMPLETED DATE/TIME: 09/18/2018 5:23 pm REASON FOR STUDY: Lower back pain, midline COMPARISON: 07/09/2018 NUMBER OF VIEWS: Five views including obliques. TECHNIQUE: AP, lateral, oblique, and sacral radiographic images acquired of the lumbar spine. LIMITATIONS: None. FINDINGS: MINERALIZATION: Normal. SEGMENTATION: Normal. No transitional anatomy. ALIGNMENT: Normal. VERTEBRAE: Maintained height. No fracture or worrisome bone lesion. DISCS: There is disc space narrowing at L4-L5. No significant osteophytes. POSTERIOR ELEMENTS: Pedicles and facets are intact. No pars defect or posterior arch defects. HARDWARE: None in the spine. PARASPINAL SOFT TISSUES: Normal. PELVIS: Intact as visualized. No fractures or worrisome bone lesions. SI joints intact. OTHER: No other significant finding. IMPRESSION: Mild disc degenerative disease at L4-L5. No acute findings. TECHNICAL DOCUMENTATION: JOB ID: [id number] [email or web address]- All Rights Reserved Reading location - IP/workstation name: [email or web address]
[2018-09-18 18:30] VITALS: BP 131/88
--- NOTE | 2018-09-18 22:09 | EKG REPORT ---
SEVERITY:- NORMAL ECG - SINUS RHYTHM : Confirmed by: Wan Aguila MD 18-Sep-2018 22:08:30
== END 2018-09-18 18:39 | disposition home or self-care (01) ==
LOC: ER 16:02
DX: T14.8XXA Other injury of unspecified body region, initial encounter (principal); W19.XXXA Unspecified fall, initial encounter; M47.9 Spondylosis, unspecified; M54.5 Low back pain; R11.0 Nausea; R61 Generalized hyperhidrosis; R07.9 Chest pain, unspecified; I10 Essential (primary) hypertension; E11.9 Type 2 diabetes mellitus without complications; Z88.5 Allergy status to narcotic agent
CPT/HCPCS: 72110; 93005; 93010; 99283

== ENCOUNTER → 2019-01-17 | Outpatient (CLI) | payer MEDICARE, MEDICAID ==
--- NOTE | 2019-01-17 13:31 | RADIOLOGY REPORT (SQ) ---
EXAM DESCRIPTION: KNEE LEFT 2 VIEWS COMPLETED DATE/TIME: 01/17/2019 1:21 pm REASON FOR STUDY: CHRONIC PAIN OF LEFT KNEE M25.562 PAIN IN LEFT KNEE COMPARISON: None. NUMBER OF VIEWS: Two views. TECHNIQUE: AP and lateral radiographic images acquired of the left knee. LIMITATIONS: None. FINDINGS: MINERALIZATION: Normal. BONES: No acute fracture dislocation. Prior ACL repair. JOINT: Narrowing of the medial compartment. Large posterior patellar spurs. Mild narrowing of the l ateral compartment with small marginal osteophytes. SOFT TISSUES: No soft tissue swelling. No radio-opaque foreign body. OTHER: No other significant finding. IMPRESSION: Degenerative joint disease. Prior ACL repair. TECHNICAL DOCUMENTATION: JOB ID: [id number] [employer]- All Rights Reserved Reading location - IP/workstation name: [email or web address]
== END ==
LOC: OD 13:12
PROVIDERS: ATTEND Nurse Practitioner Family
DX: M25.562 Pain in left knee (principal)

== ENCOUNTER 2019-02-18 07:43 | Inpatient (IN) | payer MEDICARE, MEDICAID ==
[2019-02-18 08:19] LABS: ABSOLUTE BASOPHILS # (AUTO) 0.1 10^3/uL (0.0-0.2); ABSOLUTE EOSINOPHILS # (AUTO) 0.1 10^3/uL (0.0-0.6); ABSOLUTE LYMPHOCYTES (AUTO) 1.5 10^3/uL (0.5-4.7); ABSOLUTE MONOCYTES (AUTO) 0.7 10^3/uL (0.1-1.4); ABSOLUTE NEUT (AUTO) 6.8 10^3/uL (1.7-8.2); BASOPHILS % (AUTO) 0.7 % (0-2); EOSINOPHILS % (AUTO) 1.5 % (0-6); HEMATOCRIT 47.8 % (37.9-51.0); HEMOGLOBIN 15.7 g/dL (13.5-17.0); LYMPHOCYTES % (AUTO) 16.6 % (13-45); MEAN CORPUSCULAR HEMOGLOBIN 28.5 pg (27.0-33.4); MEAN CORPUSCULAR HGB CONC 32.7 g/dL (32.0-36.0); MEAN CORPUSCULAR VOLUME 87 fl (80-97); MONOCYTES % (AUTO) 7.6 % (3-13); PLATELET COUNT 231 10^3/uL (150-450); RED BLOOD COUNT 5.49 10^6/uL (4.35-5.55); RED CELL DISTRIBUTION WIDTH 14.9 % (11.5-14.0); SEGMENTED NEUTROPHILS % (AUTO) 73.6 % (42-78); TOTAL CELLS COUNTED % (AUTO) 100 %; WHITE BLOOD COUNT 9.2 10^3/uL (4.0-10.5)
[2019-02-18 08:27] LABS: APPEARANCE,URINE SLIGHTLY-CLOUDY; BILIRUBIN,URINE NEGATIVE (NEGATIVE); COLOR,URINE DARK YELLOW; GLUCOSE, URINE >=500 mg/dL (NEGATIVE); KETONES,URINE TRACE mg/dL (NEGATIVE); LEUKOCYTE ESTERASE,URINE NEGATIVE (NEGATIVE); NITRITE,URINE NEGATIVE (NEGATIVE); PROTEIN,URINE 100 mg/dL (NEGATIVE)
[2019-02-18 08:39] LABS: ALBUMIN 4.2 g/dL (3.5-5.0); ALKALINE PHOSPHATASE 94 U/L (38-126); ANION GAP 12 (5-19); ASPARTATE AMINO TRANSFERASE 45 U/L (17-59); BILIRUBIN,DIRECT 0.1 mg/dL (0.0-0.4); BILIRUBIN,TOTAL 0.9 mg/dL (0.2-1.3); BLOOD UREA NITROGEN 15 mg/dL (7-20); CALCIUM 9.3 mg/dL (8.4-10.2); CARBON DIOXIDE 24 mmol/L (22-30); CHLORIDE 102 mmol/L (98-107); GLUCOSE 320 mg/dL (75-110); POTASSIUM 4.4 mmol/L (3.6-5.0); TOTAL PROTEIN 8.2 g/dL (6.3-8.2)
[2019-02-18] MEDS ORDERED: HYDROMORPHONE HCL INJ/PF 2 MG/ML AMPULE IV ONE ×2 (08:42→12:15)
[2019-02-18] MEDS ORDERED: NORMAL SALINE 1000 ML 1,000 ML IV ONE (08:42)
[2019-02-18] MEDS ORDERED: ONDANSETRON HCL INJ/PF 4 MG/2 ML SDV IV ONE (08:42)
--- NOTE | 2019-02-18 08:48 | ER Document Report ---
ED GI/ - General Chief Complaint: Abdominal Pain Stated Complaint: ABDOMINAL PAIN Time Seen by Provider: 02/18/19 08:32 Notes: Patient's 54-year-old male with a history of type 2 diabetes, diverticulitis, obesity, hypertension who presents to the emergency department with chief complaint of lower abdominal pain. Patient reports Thursday night he developed lower abdominal pain that was intermittent. Patient reports over the past 2 days the pain has primarily stayed in the right lower quadrant. Patient reports he has not had any history of abdominal surgeries. Patient reports he has been newly diagnosed with type 2 diabetes and was started on 2 oral medications. Patient states he has had urinary frequency without burning or pain. Patient denies a history of kidney stones. Patient reports his last bowel movement was today and normal. Patient denies blood in the stool. Patient reports nausea without vomiting or diarrhea. Patient denies back pain. Patient denies fever. TRAVEL OUTSIDE OF THE [place] IN LAST 30 DAYS: No - Related Data Allergies/Adverse Reactions: codeine [From Tylenol-Codeine #3] Allergy (Verified 09/18/18 16:04) hydrocodone Allergy (Verified 09/18/18 16:04) Past Medical History - General Information source: Patient - Social History Smoking Status: Never Smoker Frequency of alcohol use: None Drug Abuse: None Lives with: Family, Spouse/Significant other Family History: Reviewed & Not Pertinent, Arthritis, CAD, COPD, CVA, Malignancy Patient has suicidal ideation: No Patient has homicidal ideation: No - Past Medical History Cardiac Medical History: Reports: Hx Hypertension Pulmonary Medical History: Reports: None EENT Medical History: Reports: None Neurological Medical History: Reports: Hx Migraine Endocrine Medical History: Reports: Hx Diabetes Mellitus Type 2 Renal/ Medical History: Reports: Hx Testicular Torsion. Denies: Hx Peritoneal Dialysis Malignancy Medical History: Reports None GI Medical History: Reports: Hx Diverticulitis, Hx Gastritis, Hx Ulcer, Hx Endoscopy Musculoskeletal Medical History: Reports Hx Arthritis - KNEE, Reports Hx Musculoskeletal Deformity, Reports Hx Musculoskeletal Trauma Skin Medical History: Reports None Psychiatric Medical History: Reports: Hx Anxiety, Hx Depression Traumatic Medical History: Reports: Hx Fractures Infectious Medical History: Reports: None Past Surgical History: Reports: Hx Orthopedic Surgery - Surgery to right ankle foot infection left knee surgery, Hx Testicular Surgery - Testicular torsion, Other - Aspiration from pericardial effusion - Immunizations Hx Diphtheria, Pertussis, Tetanus Vaccination: Yes Review of Systems - Review of Systems Constitutional: No symptoms reported EENT: No symptoms reported Cardiovascular: No symptoms reported Respiratory: No symptoms reported Gastrointestinal: See HPI Genitourinary: See HPI Male Genitourinary: No symptoms reported Musculoskeletal: No symptoms reported Hematologic/Lymphatic: No symptoms reported Neurological/Psychological: No symptoms reported Physical Exam - Vital signs Vitals: Temp Pulse Resp BP Pulse Ox 97.8 F 99 20 127/93 H 97 02/18/19 07:47 02/18/19 07:47 02/18/19 07:47 02/18/19 07:47 02/18/19 07:47 Interpretation: Normal - Notes Notes: GENERAL: Well-appearing, well-nourished and in no acute distress. HEAD: Atraumatic, normocephalic. EYES: Pupils equal round and reactive to light, extraocular movements intact, sclera anicteric, conjunctiva are normal. ENT: Nares patent, oropharynx clear without exudates. Moist mucous membranes. NECK: Normal range of motion, supple without lymphadenopathy or JVD. LUNGS: Breath sounds clear to auscultation bilaterally and equal. No wheezes ra les or rhonchi. HEART: Regular rate and rhythm without murmurs, rubs or gallops. ABDOMEN: Soft, obese, generalized lower abdominal pain worse in RLQ with palpation, hypoactive bowel sounds. No guarding, no rebound. No masses appreciated. BACK: No cervical, thoracic, lumbar midline tenderness. No saddle anesthesia, normal distal neurovascular exam. GENITOURINARY: Deferred. EXTREMITIES: Normal range of motion, no pitting or edema. No clubbing or cyanosis. NEUROLOGICAL: Cranial nerves II through XII grossly intact. Normal speech, normal gait. PSYCH: Normal mood, normal affect. SKIN: Warm, Dry, normal turgor, no rashes or lesions noted. Course - Re-evaluation Re-evalutation: 02/18/19 08:47 Labs initiated in triage. Will add CT of the abdomen and pelvis with IV contrast to rule out possible appendicitis or diverticulitis. Will give pain medication, antiemetic and IV fluids. Patient currently in no acute distress. We will continue to monitor. 02/18/19 09:48 CT of the abdomen shows concern for possible early appendicitis. I did inform the patient to remain NPO. I did speak with Dr. Ramos the on-call surgicalist who will come and see the patient in the emergency department. Antibiotics initiated. Patient reports he did take a few sips of water around 4 AM this morning but has not had anything else to eat or drink since 7:30 PM last night. 02/18/19 12:18 After 1 L of fluid patient's blood glucose is 244. I will give the patient another dose of pain medication as well as 500 mils of fluid. We will recheck the blood sugar. Consult for hospitalist services has been ordered by surgical list. - Vital Signs Vital signs: Temp Pulse Resp BP Pulse Ox 98.2 F 99 18 139/73 H 94 02/18/19 12:11 02/18/19 07:47 02/18/19 12:01 02/18/19 12:01 02/18/19 12:01 - Laboratory Result Diagrams: 02/18/19 07:58 02/18/19 07:58 Laboratory results interpreted by me: 02/18/19 02/18/19 02/18/19 07:58 07:58 07:58 RDW 14.9 H Glucose 320 H Urine Protein 100 H Urine Glucose (UA) >=500 H Urine Ketones TRACE H Urine Urobilinogen 2.0 H Urine Ascorbic Acid 20 H 02/18/19 09:58 Patient does not have a leukocytosis. Patient's electrolytes are within normal limits. Patient's glucose is elevated at 320. Patient has a normal anion gap. Patient's urinalysis shows glucose which is consistent with the blood work. There is no infection. Laboratory 02/18/19 02/18/19 02/18/19 07:58 07:58 07:58 WBC 9.2 RBC 5.49 Hgb 15.7 Hct 47.8 MCV 87 MCH 28.5 MCHC 32.7 RDW 14.9 H Plt Count 231 Lymph % (Auto) 16.6 [place] % (Auto) 7.6 Eos % (Auto) 1.5 Baso % (Auto) 0.7 Absolute Neuts (auto) 6.8 Absolute Lymphs (auto) 1.5 Absolute Monos (auto) 0.7 Absolute Eos (auto) 0.1 Absolute Basos (auto) 0.1 Seg Neutrophils % 73.6 Sodium 137.8 Potassium 4.4 Chloride 102 Carbon Dioxide 24 Anion Gap 12 BUN 15 Creatinine 0.64 Est GFR ( Amer) > 60 Est GFR (MDRD) Non-Af > 60 Glucose 320 H Calcium 9.3 Total Bilirubin 0.9 Direct Bilirubin 0.1 Neonat Total Bilirubin Not Reportable Neonat Direct Bilirubin Not Reportable Neonat Indirect Bili Not Reportable AST 45 ALT 54 Alkaline Phosphatase 94 Total Protein 8.2 Albumin 4.2 Lipase 96.3 Urine Color DARK YELLOW Urine Appearance SLIGHTLY-CLOUDY Urine pH 5.0 Ur Specific [place] 1.030 Urine Protein 100 H Urine Glucose (UA) >=500 H Urine Ketones TRACE H Urine Blood NEGATIVE Urine Nitrite NEGATIVE Urine Bilirubin NEGATIVE Urine Urobilinogen 2.0 H Ur Leukocyte Esterase NEGATIVE Urine WBC (Auto) 3 Urine RBC (Auto) 1 U Hyaline Cast (Auto) 3 Squamous Epi Cells Auto 1 Granular Casts (Auto) 4 Urine Mucus (Auto) MANY Urine Ascorbic Acid 20 H - Diagnostic Test Radiology reviewed: Reports reviewed Radiology results interpreted by me: 02/18/19 09:48 Abdomen/Pelvis CT 02/18/19 08:43 IMPRESSION: 1. MILD INFLAMMATORY CHANGES INVOLVING THE APPENDIX SUSPICIOUS FOR EARLY APPENDICITIS. NO EVIDENCE OF ABSCESS OR PERFORATION. 2. COLONIC DIVERTICULOSIS. NO CT FINDINGS OF DIVERTICULITIS. 3. MARKED DIFFUSE FATTY INFILTRATION OF THE LIVER. 4. NO OTHER SIGNIFICANT OR ACUTE FINDING IN THE ABDOMEN OR PELVIS ON CT SCAN WITH IV CONTRAST. Discharge - Discharge Clinical Impression: Appendicitis Qualifiers: Appendicitis type: acute appendicitis Acute appendicitis type: other Qualified Code(s): K35.890 - Other acute appendicitis without perforation or gangrene Condition: Stable Disposition: ADMITTED OBSERVATION Admitting Provider: Surgicalist Unit Admitted: Surgical Floor
--- NOTE | 2019-02-18 09:39 | RADIOLOGY REPORT (SQ) ---
EXAM DESCRIPTION: CT ABD/PELVIS WITH IV ONLY COMPLETED DATE/TIME: 02/18/2019 9:18 am REASON FOR STUDY: lower abdominal pain, hx. diverticulitis COMPARISON: 08/20/2017. TECHNIQUE: CT scan of the abdomen and pelvis performed using helical scanning technique with dynamic intravenous contrast injection. No oral contrast. Images reviewed with lung, soft tissue, and bone windows. Reconstructed coronal and sagittal MPR images reviewed. Delayed images for evaluation of the urinary system also acquired. All images stored on PACS. All CT scanners at this facility use dose modulation, iterative reconstruction, and/or weight based d osing when appropriate to reduce radiation dose to as low as reasonably achievable (ALARA). [facility]: Dose Right [facility]: CareDose [facility]: Dose Right [facility]: Teradose 4D [facility]: ShapeUp CONTRAST TYPE AND DOSE: contrast/concentration: Isovue 350.00 mg/ml; Total Contrast Delivered: 100.0 ml; Total Saline Delivered: 63.7 ml RENAL FUNCTION: BUN 15 creatinine 0.64. RADIATION DOSE: CT Rad equipment meets quality standard of care and radiation dose reduction techniq ues were employed. CTDIvol: 21.1 mGy. DLP: 2732 mGy-cm.. LIMITATIONS: None. FINDINGS: LOWER CHEST: No significant findings. No nodules or infiltrates. LIVER: Normal size. Marked diffuse fatty infiltration. No masses. No dilated ducts. SPLEEN: Normal size. No focal lesions. PANCREAS: No masses. No significant calcifications. No adjacent inflammation or peripancreatic fluid collections. Pancreatic duct not dilated. GALLBLADDER: No identified stones by CT criteria. No inflammatory changes to suggest cholecystitis. ADRENAL GLANDS: No significant masses or asymmetry. RIGHT KIDNEY AND URETER: No solid masses. No significant calcifications. No hydronephrosis or hyd roureter. LEFT KIDNEY AND URETER: No solid masses. No significant calcifications. No hydronephrosis or hydr oureter. AORTA AND VESSELS: No aneurysm. No dissection. Renal arteries, SMA, celiac without stenosis. RETROPERITONEUM: No retroperitoneal adenopathy, hemorrhage or masses. BOWEL AND PERITONEAL CAVITY: Diverticuli in the descending and sigmoid colon. No masses or inflammat ory changes. No free fluid or peritoneal masses. APPENDIX: Slightly thickened, measuring 9 to 10 mm in diameter. Mild stranding in the periappendicea l tissues. No abnormal fluid collection. No extraluminal gas. PELVIS: No mass. No free fluid. Normal bladder. ABDOMINAL WALL: No masses. No hernias. BONES: No significant or acute findings. OTHER: No other significant finding. IMPRESSION: 1. MILD INFLAMMATORY CHANGES INVOLVING THE APPENDIX SUSPICIOUS FOR EARLY APPENDICITIS. NO EVIDENCE O F ABSCESS OR PERFORATION. 2. COLONIC DIVERTICULOSIS. NO CT FINDINGS OF DIVERTICULITIS. 3. MARKED DIFFUSE FATTY INFILTRATION OF THE LIVER. 4. NO OTHER SIGNIFICANT OR ACUTE FINDING IN THE ABDOMEN OR PELVIS ON CT SCAN WITH IV CONTRAST. TECHNICAL DOCUMENTATION: JOB ID: [id number] Quality ID # [id number]: Final reports with documentation of one or more dose reduction techniques (e.g., Au tomated exposure control, adjustment of the mA and/or kV according to patient size, use of iterative reconstruction technique) 2010 [employer]- All Rights Reserved Reading location - IP/workstation name: [email or web address]
[2019-02-18] MEDS ORDERED: PIPERACILLIN/TAZOBACTAM 3.375 GM VIAL IV ONE (09:47)
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
[2019-02-18] MEDS ORDERED: NORMAL SALINE 500 ML IV ONE (12:15)
--- NOTE | 2019-02-18 14:28 | Operative Report ---
Operative Report DATE OF SURGERY: 02/18/19 PREOPERATIVE DIAGNOSIS: left lateral above ankle wound 12x6x1 cm with necrotic tissue POSTOPERATIVE DIAGNOSIS: same OPERATION: Sharp debridement with scalpel of necrotic tissue above muscle area 12x6x1 cm deep SURGEON: JENNI CLAROS ANESTHESIA: Local TISSUE REMOVED OR ALTERED: necroric tissue COMPLICATIONS: none ESTIMATED BLOOD LOSS: 1 cc QUANTITATIVE BLOOD LOSS: 1 INTRAOPERATIVE FINDINGS: The left lower leg wound was debrided yesterday by Dr. Mcelroy but this morning there is still a few remaining necrotic tissue around surrounding margins of the wound and on top of the muscle. Wound roughly measures about 12 x 6 x 1 cm deep. Some of the muscle was exposed PROCEDURE: Patient was placed supine in bed and left ankle where the wound was was then prepped and draped in the usual sterile fashion. Local anesthesia infiltrated around the wound using 1% lidocaine. The necrotic tissue on the margin of the ulcer was then sharply debrided using a 15 blade. There was some necrotic tissue on top of the muscle and that was also debrided sharply and shaved with a 15 blade until bleeding was noted. There also some areas on the superior aspect of the wound was more necrotic down to in between the muscle areas. The cavity roughly measured about 12 x 6 x 1 cm deep. The surface of the wound was irrigated and wiped with lidocaine soaked gauze. Wound VAC will be placed afterwards.
[2019-02-18] MEDS: NORMAL SALINE 1000 ML 1,000 ML IV PRN (16:26)
[2019-02-18] MEDS ORDERED: PIPERACILLIN SODIUM/TAZOBACTAM 3.375 GM in NORMAL SALINE 100 ML IV ONE (17:00)
[2019-02-18] MEDS ORDERED: BUPIVACAINE HCL 0.5%-EPI 1:200000 INJ/PF 30 ML VIAL ONE (17:52)
[2019-02-18] MEDS ORDERED: BUPIVACAINE HCL 0.25 % INJ/PF (2.5 MG/1 ML) 30 ML VIAL ONE (17:53)
[2019-02-18] MEDS ORDERED: HYDROMORPHONE HCL INJ/PF 2 MG/ML AMPULE ONE (18:31)
[2019-02-18] MEDS ORDERED: FENTANYL CITRATE INJ/PF 250 MCG/5 ML AMPULE ONE (18:31)
[2019-02-18] MEDS ORDERED: PROPOFOL INJ 200 MG/20 ML VIAL IV ONE (18:32)
[2019-02-18] MEDS ORDERED: DEXTROSE 40% GEL 15 GM TUBE PO PRN ×2 (18:56)
[2019-02-18] MEDS ORDERED: DEXTROSE 50%-WATER 25 GM/50 ML DISP.SYRIN IV PRN ×2 (18:56)
[2019-02-18] MEDS ORDERED: GLUCAGON,HUMAN RECOMB 1 MG INJ IM PRN (18:56)
[2019-02-18] MEDS ORDERED: CELECOXIB 100 MG CAPSULE PO PRN (18:58)
[2019-02-18] MEDS ORDERED: LABETALOL HCL INJ 20 MG/4 ML DISP.SYRIN IV ONE (19:38)
[2019-02-18] MEDS ORDERED: ONDANSETRON HCL INJ/PF 4 MG/2 ML SDV IV PRN (19:45)
[2019-02-18] MEDS ORDERED: DIPHENHYDRAMINE HCL 50 MG/ML VIAL IV PRN (19:45)
[2019-02-18] MEDS ORDERED: MEPERIDINE HCL/PF INJ 25 MG/1 ML DISP.SYRIN IV PRN (19:45)
[2019-02-18] MEDS ORDERED: SUGAMMADEX SODIUM 200 MG/2 ML SDV IV ONE (20:55)
[2019-02-18] MEDS ORDERED: FENTANYL CITRATE INJ/PF 100 MCG/2 ML AMPUL ONE (21:42)
[2019-02-18] MEDS ORDERED: MIDAZOLAM 2 MG/2 ML INJ ONE (21:43)
[2019-02-18] MEDS ORDERED: INSULIN LISPRO 100 UNIT/ML 3 ML VIAL SUBCUT SCH (22:00)
[2019-02-18] MEDS ORDERED: PROPOFOL 1,000 MG/100 ML INFUS..BTL IV ONE (22:35)
[2019-02-18 22:50] LABS: ARTERIAL BLOOD BASE EXCESS -5.7 mmol/L; ARTERIAL BLOOD H2CO3 1.84 mmol/L (1.05-1.35); ARTERIAL BLOOD HCO3 23.4 mmol/L (20-24); ARTERIAL BLOOD O2 SATURATION 95.5 % (94-98); ARTERIAL BLOOD PCO2 61.2 mmHg (35-45); ARTERIAL BLOOD PO2 95.5 mmHg (80-100); ARTERIAL BLOOD TOTAL CO2 25.3 mmol/L (23-27)
[2019-02-18 22:52] LABS: ARTERIAL BLOOD FIO2 60%
--- NOTE | 2019-02-18 23:21 | Operative Report ---
Operative Report DATE OF SURGERY: 02/18/19 PREOPERATIVE DIAGNOSIS: Acute appendicitis POSTOPERATIVE DIAGNOSIS: Same OPERATION: Laparoscopic appendectomy SURGEON: JENNI CLAROS ANESTHESIA: GA TISSUE REMOVED OR ALTERED: Appendix COMPLICATIONS: None ESTIMATED BLOOD LOSS: 20 cc QUANTITATIVE BLOOD LOSS: 20 INTRAOPERATIVE FINDINGS: Appendix is retroperitoneal with inflammation primarily along the distal half PROCEDURE: After adequate general anesthesia patient was placed in supine position and the abdomen prepped and draped in the usual sterile fashion. Patient is morbidly obese and weighs about 400pounds and about 6 feet 1 inches tall. Appropriate timeout was then called. A lower abdominal vertical incision from the umbilicus to about 5 cm was made and fascia underneath thick fat pad was identified and 0 Vicryl sutures were placed on each side of the fascia and the fascia divided between the sutures. A Epstein trocar was then inserted through the abdominal cavity and CO2 insufflated to pressure of 15mmHg. Visibility was difficult since patient is markedly obese. Also patient is did have difficulty positioning the patient because unable to strep very well on the table. Next a right lower quadrant incision is made in a bariatric 12 mm trocar was then inserted into the abdominal cavity under direct vision. Next a suprapubic incision was made in the 5 mm trocar inserted. The cecum was at that identified and the appendix was noted to be retrocecal. I have to put in another trocar into the right lower quadrant because instrumentation is not long enough. The cecum was then mobilized from its adhesions on the lateral gutter and most of the adhesions lysed with the harmonic golden. Appendix noted to be retroperitoneal and distal and grasped and pulled up and dissected with the use of the harmonic golden. It was inadvertently divided night at the midpoint and distal specimen placed in an Endobag and and placed in a container for pathology evaluation. Next trochars were placed back and a this time a 5 mm scope was placed in the left lower quadrant area. The appendix was then lifted up and the mesoappendix further dissected with the use of harmonic golden. The base of the appendix was then noted and appears to be free of any inflammation. It was then divided with an Endo SIVA blue load. The specimen was then placed in an Endobag and pulled out through the umbilical port. Trochars were put back and up in the usual stump identified and noted to be free from any bleeding. There was some difficulty initially dissecting the appendix and because primarily of difficult exposure and difficulty positioning the patient appropriately. A 15 [place] drain was then placed through 1 of the trochars and pulled out to the suprapubic port. The drain was placed along the right lateral gutter. Adequate hemostasis was noted. All the trochars were removed and CO2 allowed to come out of the trocar sites. The infraumbilical incision on the fascia was then closed with [id number] suture using 0 Vicryl and then 2 stay sutures tied over for better closure. The subcu was then irrigated with saline solution and all the skin incisions were then closed with marcellus. Sterile dressings placed over the operative sites. Patient tolerated procedure fairly well but unable to be extubated and therefore was transferred to the intensive care unit with essentially normal vital signs. Needle instrument sponge count were all correct and estimated blood loss about [address] Morton
--- NOTE | 2019-02-18 23:46 | RADIOLOGY REPORT (SQ) ---
CLINICAL HISTORY: ETT/NG Placement COMPARISON: None. TECHNIQUE: XR CHEST 1 VIEW 02/18/2019 12:00 AM CDT FINDINGS: The heart is enlarged. There is bilateral upper lung airspace disease, mostly medially. There is no pleural effusion. There is no pneumothorax. There are no acute osseous findings. Endotracheal tube tip is in the midtrachea. NG tube tip is in the stomach. IMPRESSION: Bilateral upper lung pneumonia. Endotracheal and nasogastric tubes in appropriate position.
[2019-02-19] MEDS ORDERED: MIDAZOLAM HCL 50 MG/100 ML RTUINJ IV PRN (00:34)
[2019-02-19] MEDS: PROPOFOL 1,000 MG/100 ML INFUS..BTL IV PRN ×5 (00:42→07:28)
--- NOTE | 2019-02-19 00:52 | Progress Note ---
Provider Note Provider Note: Critical care note: 02/18/2019 Critical care start time: 10:45 PM Critical care issue: Postoperative ventilator management, current status respiratory acidosis pH of 7.20 PCO2 of 61.2 I was contacted by the patient's ICU nurse shortly after the patient arrived to the ICU from surgery. The patient was on ventilator postoperatively and would require ventilatory assistance through the night. Blood gases were obtained and patient had the readings shown above. Due to the critical value I was called for report and nursing staff requested that I see the patient for ventilator management. Patient was found to have morbid obesity with breath sounds equal bilaterally but had poor chest expansion with the ventilator cycle. Vital signs were otherwise stable and the endotracheal tube was clinically in good position. Patient's chart was reviewed and discussed with his nurse in the room. Ventilator changes were made giving the patient a volume of 650 mL with a rate of 20 breaths/min and a PEEP of 8 On an FiO2 of 40%. ABGs will be obtained but due to other pressing matters they will be delayed such that I will not be able to stay with the patient until the results are back. The patient clinically appeared improved with much better chest expansion and an O2 sat of 99% after the ventilator changes mentioned above were initiated. Critical care end time: 12:50 AM (02/19/2019) Total critical care time: 19 minutes
[2019-02-19] MEDS: INSULIN LISPRO 100 UNIT/ML 3 ML VIAL SUBCUT SCH ×4 (00:54→17:59)
[2019-02-19] MEDS: NORMAL SALINE 1000 ML 1,000 ML IV PRN ×2 (03:32→11:36)
[2019-02-19 05:41] LABS: ARTERIAL BLOOD BASE EXCESS 0.6 mmol/L; ARTERIAL BLOOD H2CO3 1.15 mmol/L (1.05-1.35); ARTERIAL BLOOD HCO3 24.7 mmol/L (20-24); ARTERIAL BLOOD O2 SATURATION 96.1 % (94-98); ARTERIAL BLOOD PCO2 38.2 mmHg (35-45); ARTERIAL BLOOD PH 7.43 (7.35-7.45); ARTERIAL BLOOD PO2 79.7 mmHg (80-100); ARTERIAL BLOOD TOTAL CO2 25.9 mmol/L (23-27)
[2019-02-19 05:43] LABS: ARTERIAL BLOOD FIO2 40%
[2019-02-19] MEDS ORDERED: METFORMIN HCL 500 MG TABLET PO SCH (08:00)
[2019-02-19] MEDS ORDERED: HYDROMORPHONE HCL INJ/PF 2 MG/ML AMPULE ONE (08:32)
--- NOTE | 2019-02-19 08:38 | PDOC PROGRESS REPORT ---
Subjective Progress Note for:: 02/19/19 Subjective:: Patien remains intubated, sedated POD # 1 from appendectomy Reason For Visit: APPENDICITIS Pt is intubated after surgery but should be extubatable. ROMULO or hypoventation syndrome especially with the use of narcotics needs to be watched. Needs an ICU level of care for ventilator use. Physical Exam Vital Signs: Temp Pulse Resp BP Pulse Ox 99.5 F 82 20 171/95 H 96 02/19/19 05:48 02/18/19 23:00 02/19/19 06:40 02/19/19 06:40 02/19/19 06:40 Intake & Output 02/18/19 02/19/19 02/20/19 06:59 06:59 06:59 Intake Total 4584 90 Output Total 795 Balance 3789 90 Weight 180.2 kg General appearance: PRESENT: no acute distress, morbidly obese Additional Comments: Sedeated on diprivan but is stirring with stimulation. Eye exam: PRESENT: PERRLA Ear exam: PRESENT: normal external ear exam Mouth exam: PRESENT: moist, tongue midline Neck exam: PRESENT: full ROM. ABSENT: carotid bruit, JVD, lymphadenopathy, thyromegaly Respiratory exam: PRESENT: rhonchi, unlabored Cardiovascular exam: PRESENT: RRR Vascular exam: PRESENT: normal capillary refill GI/Abdominal exam: PRESENT: hypoactive bowel sounds, soft Additonal comments: Mid-line lower abd incision clean and dressed. SHIRA draining serosanguinous material. Rectal exam: PRESENT: deferred Extremities exam: PRESENT: full ROM Musculoskeletal exam: PRESENT: full ROM, normal inspection Additional comments: Sedated Results Laboratory Results: 02/18/19 07:58 02/18/19 07:58 02/18/19 02/18/19 02/18/19 07:58 07:58 07:58 WBC 9.2 RBC 5.49 Hgb 15.7 Hct 47.8 MCV 87 MCH 28.5 MCHC 32.7 RDW 14.9 H Plt Count 231 Seg Neutrophils % 73.6 Carbonic Acid HCO3/H2CO3 Ratio ABG pH ABG pCO2 ABG pO2 ABG HCO3 ABG O2 Saturation ABG Base Excess FiO2 Sodium 137.8 Potassium 4.4 Chloride 102 Carbon Dioxide 24 Anion Gap 12 BUN 15 Creatinine 0.64 Est GFR ( Amer) > 60 Glucose 320 H Calcium 9.3 Total Bilirubin 0.9 AST 45 Alkaline Phosphatase 94 Total Protein 8.2 Albumin 4.2 Lipase 96.3 Urine Color DARK YELLOW Urine Appearance SLIGHTLY-CLOUDY Urine pH 5.0 Ur Specific [place] 1.030 Urine Protein 100 H Urine Glucose (UA) >=500 H Urine Ketones TRACE H Urine Blood NEGATIVE Urine Nitrite NEGATIVE Ur Leukocyte Esterase NEGATIVE Urine WBC (Auto) 3 Urine RBC (Auto) 1 02/18/19 02/19/19 22:39 05:24 WBC RBC Hgb Hct MCV MCH MCHC RDW Plt Count Seg Neutrophils % Carbonic Acid 1.84 H 1.15 HCO3/H2CO3 Ratio 12:1 21:1 ABG pH 7.20 L* 7.43 ABG pCO2 61.2 H 38.2 ABG pO2 95.5 79.7 L ABG HCO3 23.4 24.7 H ABG O2 Saturation 95.5 96.1 ABG Base Excess -5.7 0.6 FiO2 60% 40% Sodium Potassium Chloride Carbon Dioxide Anion Gap BUN Creatinine Est GFR ( Amer) Glucose Calcium Total Bilirubin AST Alkaline Phosphatase Total Protein Albumin Lipase Urine Color Urine Appearance Urine pH Ur Specific [place] Urine Protein Urine Glucose (UA) Urine Ketones Urine Blood Urine Nitrite Ur Leukocyte Esterase Urine WBC (Auto) Urine RBC (Auto) Impressions: Chest X-Ray 02/18/19 00:00 IMPRESSION: Bilateral upper lung pneumonia. Endotracheal and nasogastric tubes in appropriate position. Abdomen/Pelvis CT 02/18/19 08:43 IMPRESSION: 1. MILD INFLAMMATORY CHANGES INVOLVING THE APPENDIX SUSPICIOUS FOR EARLY APPENDICITIS. NO EVIDENCE OF ABSCESS OR PERFORATION. 2. COLONIC DIVERTICULOSIS. NO CT FINDINGS OF DIVERTICULITIS. 3. MARKED DIFFUSE FATTY INFILTRATION OF THE LIVER. 4. NO OTHER SIGNIFICANT OR ACUTE FINDING IN THE ABDOMEN OR PELVIS ON CT SCAN WITH IV CONTRAST. Assessment & Plan - Diagnosis (1) Appendicitis Qualifiers: Appendicitis type: acute appendicitis Acute appendicitis type: other Qualified Code(s): K35.890 - Other acute appendicitis without perforation or gangrene; K35.89 - Other acute appendicitis Is this a current diagnosis for this admission?: Yes Plan: Resolved with surgery. Routine post-op care. William to treat surgical pain before extubation. (2) DM type 2 (diabetes mellitus, type 2) Qualifiers: Diabetes mellitus joint terminal attack controller insulin use: without intermediate use Diabetes mellitus complication status: without complication Qualified Code(s): E11.9 - Type 2 diabetes mellitus without complications Is this a current diagnosis for this admission?: Yes Plan: Needs insulin sliding scale. (3) Acute respiratory failure Qualifiers: Respiratory failure complication: unspecified whether with hypoxia or hypercapnia Qualified Code(s): J96.00 - Acute respiratory failure, unspecified whether with hypoxia or hypercapnia Is this a current diagnosis for this admission?: Yes Plan: Intubated post op due to morbid obesity and potential for respiratory compromise. Plan to make comfortable and extubate. - Time Time Spent with patient: 35 or more minutes Total Critical Time (Minutes): 35 Medications reviewed and adjusted accordingly: Yes Anticipated discharge: Home Within: within 48 hours - Inpatient Certification Based on my medical assessment, after consideration of the patient's comorbidities, presenting symptoms, or acuity I expect that the services needed warrant INPATIENT care.: Yes I certify that my determination is in accordance with my understanding of Medicare's requirements for reasonable and necessary INPATIENT services [42 CFR 412.3e].: Yes Medical Necessity: Failure to Improve With Outpatient Therapy, Need Close Monitoring Due to Risk of Patient Decompensation, Need for Pain Control, Need for Surgery
[2019-02-19] MEDS ORDERED: HYDROMORPHONE HCL INJ/PF 2 MG/ML AMPULE IV PRN ×2 (08:39→08:52)
[2019-02-19] MEDS ORDERED: LIDOCAINE 2% INJ-PF (20 MG/ML) 2 ML AMPUL ONE (10:28)
[2019-02-19] MEDS ORDERED: SUCCINYLCHOLINE CHLORIDE INJ 200 MG/10 ML VIAL ONE (10:28)
[2019-02-19] MEDS ORDERED: ONDANSETRON HCL INJ/PF 4 MG/2 ML SDV ONE (10:28)
[2019-02-19] MEDS ORDERED: ROCURONIUM BROMIDE INJ 50 MG/5 ML VIAL IV ONE (10:28)
[2019-02-19] MEDS: LISINOPRIL 10 MG TABLET PO SCH (11:12)
[2019-02-19] MEDS: DULOXETINE HCL 30 MG CAPSULE.DR PO SCH (11:13)
[2019-02-19] MEDS: SITAGLIPTIN PHOSPHATE 50 MG TABLET PO SCH (11:14)
[2019-02-19] MEDS: HYDROMORPHONE HCL INJ/PF 2 MG/ML AMPULE IV PRN ×3 (11:30→20:50)
--- NOTE | 2019-02-19 11:41 | PDOC PROGRESS REPORT ---
Subjective Progress Note for:: 02/19/19 Subjective:: RLQ pains. POD #1 post difficult lap appendectomy Reason For Visit: APPENDICITIS Physical Exam Vital Signs: Temp Pulse Resp BP Pulse Ox 100.6 F H 95 24 H 142/85 H 97 02/19/19 10:00 02/19/19 10:00 02/19/19 10:00 02/19/19 10:00 02/19/19 10:00 Intake & Output 02/18/19 02/19/19 02/20/19 06:59 06:59 06:59 Intake Total 4584 160 Output Total 795 475 Balance 3789 -315 Weight 180.2 kg Exam: Just extubated. VS stable. Afebrile Abdomen is soft with mild tenderness RLQ. Drain with small amount serosanguinous fluid Results Laboratory Results: 02/18/19 07:58 02/18/19 07:58 02/18/19 02/19/19 22:39 05:24 Carbonic Acid 1.84 H 1.15 HCO3/H2CO3 Ratio 12:1 21:1 ABG pH 7.20 L* 7.43 ABG pCO2 61.2 H 38.2 ABG pO2 95.5 79.7 L ABG HCO3 23.4 24.7 H ABG O2 Saturation 95.5 96.1 ABG Base Excess -5.7 0.6 FiO2 60% 40% Impressions: Chest X-Ray 02/18/19 00:00 IMPRESSION: Bilateral upper lung pneumonia. Endotracheal and nasogastric tubes in appropriate position. Abdomen/Pelvis CT 02/18/19 08:43 IMPRESSION: 1. MILD INFLAMMATORY CHANGES INVOLVING THE APPENDIX SUSPICIOUS FOR EARLY APPENDICITIS. NO EVIDENCE OF ABSCESS OR PERFORATION. 2. COLONIC DIVERTICULOSIS. NO CT FINDINGS OF DIVERTICULITIS. 3. MARKED DIFFUSE FATTY INFILTRATION OF THE LIVER. 4. NO OTHER SIGNIFICANT OR ACUTE FINDING IN THE ABDOMEN OR PELVIS ON CT SCAN WITH IV CONTRAST. Assessment & Plan - Diagnosis (1) DM type 2 (diabetes mellitus, type 2) Qualifiers: Diabetes mellitus exterminator helper termite insulin use: without exterminator helper termite use Diabetes mellitus complication status: without complication Qualified Code(s): E11.9 - Type 2 diabetes mellitus without complications Is this a current diagnosis for this admission?: Yes (2) Appendicitis Qualifiers: Appendicitis type: acute appendicitis Acute appendicitis type: other Qualified Code(s): K35.890 - Other acute appendicitis without perforation or gangrene; K35.89 - Other acute appendicitis Is this a current diagnosis for this admission?: Yes - Time Time Spent with patient: 15-24 minutes - Inpatient Certification Medical Necessity: Need Close Monitoring Due to Risk of Patient Decompensation - Plan Summary Plan Summary: Just extubated in ICU today Start clears Check Labs Keep in ICU today and OOB then D/C sanchez Continue IV antibiotics
[2019-02-19] MEDS ORDERED: PIPERACILLIN/TAZOBACTAM 3.375 GM VIAL IV SCH (12:00)
[2019-02-19 12:14] LABS: ABSOLUTE EOSINOPHILS # (AUTO) 0.1 10^3/uL (0.0-0.6); ABSOLUTE MONOCYTES (AUTO) 0.8 10^3/uL (0.1-1.4); ABSOLUTE NEUT (AUTO) 7.5 10^3/uL (1.7-8.2); BASOPHILS % (AUTO) 0.3 % (0-2); HEMOGLOBIN 13.9 g/dL (13.5-17.0); LYMPHOCYTES % (AUTO) 10.7 % (13-45); MEAN CORPUSCULAR VOLUME 88 fl (80-97); MONOCYTES % (AUTO) 8.1 % (3-13); PLATELET COUNT 194 10^3/uL (150-450); RED BLOOD COUNT 4.77 10^6/uL (4.35-5.55); RED CELL DISTRIBUTION WIDTH 15.1 % (11.5-14.0); SEGMENTED NEUTROPHILS % (AUTO) 79.9 % (42-78); TOTAL CELLS COUNTED % (AUTO) 100 %; WHITE BLOOD COUNT 9.3 10^3/uL (4.0-10.5)
[2019-02-19 12:36] LABS: BLOOD UREA NITROGEN 13 mg/dL (7-20); CALCIUM 8.3 mg/dL (8.4-10.2); CARBON DIOXIDE 24 mmol/L (22-30); CHLORIDE 107 mmol/L (98-107); GLUCOSE 272 mg/dL (75-110); POTASSIUM 4.1 mmol/L (3.6-5.0)
[2019-02-19 12:37] LABS: ALBUMIN 3.6 g/dL (3.5-5.0); ALKALINE PHOSPHATASE 74 U/L (38-126); ANION GAP 8 (5-19); ASPARTATE AMINO TRANSFERASE 59 U/L (17-59); BILIRUBIN,DIRECT 0.4 mg/dL (0.0-0.4); BILIRUBIN,TOTAL 0.8 mg/dL (0.2-1.3); TOTAL PROTEIN 7.1 g/dL (6.3-8.2)
[2019-02-19] MEDS: PIPERACILLIN SODIUM/TAZOBACTAM 3.375 GM in NORMAL SALINE 100 ML IV SCH ×2 (13:11→18:02)
[2019-02-20] MEDS: HYDROMORPHONE HCL INJ/PF 2 MG/ML AMPULE IV PRN ×2 (00:49→05:09)
[2019-02-20] MEDS: PIPERACILLIN SODIUM/TAZOBACTAM 3.375 GM in NORMAL SALINE 100 ML IV SCH ×4 (00:49→18:26)
[2019-02-20] MEDS: INSULIN LISPRO 100 UNIT/ML 3 ML VIAL SUBCUT SCH ×4 (01:59→18:27)
[2019-02-20] MEDS ORDERED: INFLUENZA QUAD (6MOS+) 2019-20 VAC 0.5 ML SYR IM ONE (08:00)
--- NOTE | 2019-02-20 08:08 | PDOC PROGRESS REPORT ---
Subjective Progress Note for:: 02/20/19 Subjective:: RLQ pains better than pre-op Some urethral discomfort after removal of Sifuentes catheter Reason For Visit: ACUTE APPENDICITIS Physical Exam Vital Signs: Temp Pulse Resp BP Pulse Ox 98.7 F 93 27 H 138/69 H 89 L 02/19/19 22:00 02/19/19 12:00 02/19/19 15:00 02/19/19 21:01 02/19/19 21:00 Intake & Output 02/19/19 02/20/19 02/21/19 06:59 06:59 06:59 Intake Total 4584 1460 Output Total 795 595 Balance 3789 865 Weight 180.2 kg 183.4 kg Exam: Abdomen is soft with mild tenderness in the right lower quadrant. Afebrile Awaiting results of UA and C&S Results Laboratory Results: 02/19/19 11:54 02/19/19 11:54 02/19/19 02/19/19 11:54 11:54 WBC 9.3 RBC 4.77 Hgb 13.9 Hct 42.0 MCV 88 MCH 29.0 MCHC 33.0 RDW 15.1 H Plt Count 194 Seg Neutrophils % 79.9 H Sodium 139.1 Potassium 4.1 Chloride 107 Carbon Dioxide 24 Anion Gap 8 BUN 13 Creatinine 0.64 Est GFR ( Amer) > 60 Glucose 272 H Calcium 8.3 L Total Bilirubin 0.8 AST 59 Alkaline Phosphatase 74 Total Protein 7.1 Albumin 3.6 Impressions: Chest X-Ray 02/18/19 00:00 IMPRESSION: Bilateral upper lung pneumonia. Endotracheal and nasogastric tubes in appropriate position. Abdomen/Pelvis CT 02/18/19 08:43 IMPRESSION: 1. MILD INFLAMMATORY CHANGES INVOLVING THE APPENDIX SUSPICIOUS FOR EARLY APPENDICITIS. NO EVIDENCE OF ABSCESS OR PERFORATION. 2. COLONIC DIVERTICULOSIS. NO CT FINDINGS OF DIVERTICULITIS. 3. MARKED DIFFUSE FATTY INFILTRATION OF THE LIVER. 4. NO OTHER SIGNIFICANT OR ACUTE FINDING IN THE ABDOMEN OR PELVIS ON CT SCAN WITH IV CONTRAST. Assessment & Plan - Diagnosis (1) DM type 2 (diabetes mellitus, type 2) Qualifiers: Diabetes mellitus long-term insulin use: without long-term use Diabetes mellitus complication status: without complication Qualified Code(s): E11.9 - Type 2 diabetes mellitus without complications Is this a current diagnosis for this admission?: Yes (2) Appendicitis Qualifiers: Appendicitis type: acute appendicitis Acute appendicitis type: other Qualified Code(s): K35.890 - Other acute appendicitis without perforation or gangrene; K35.89 - Other acute appendicitis Is this a current diagnosis for this admission?: Yes - Time Time Spent with patient: 15-24 minutes - Inpatient Certification Medical Necessity: Significant Comorbidiites Make Outpatient Treatment Too Risky, Need for IV Antibiotics - Plan Summary Plan Summary: Check urine C&S results as well as CBC Continue IV antibiotics Continue ICU care today Gradually increase p.o. intake Continue out of bed as tolerated
--- NOTE | 2019-02-20 08:12 | PDOC PROGRESS REPORT ---
Subjective Progress Note for:: 02/20/19 Subjective:: Patient is actively vomiting now. Reason For Visit: ACUTE APPENDICITIS Physical Exam Vital Signs: Temp Pulse Resp BP Pulse Ox 98.7 F 93 27 H 138/69 H 89 L 02/19/19 22:00 02/19/19 12:00 02/19/19 15:00 02/19/19 21:01 02/19/19 21:00 Intake & Output 02/19/19 02/20/19 02/21/19 06:59 06:59 06:59 Intake Total 4584 1460 Output Total 795 595 Balance 3789 865 Weight 180.2 kg 183.4 kg General appearance: PRESENT: cooperative, mild distress, morbidly obese Head exam: PRESENT: atraumatic Eye exam: PRESENT: conjunctiva pink, EOMI, PERRLA. ABSENT: scleral icterus Ear exam: PRESENT: normal external ear exam Mouth exam: PRESENT: moist, tongue midline Respiratory exam: PRESENT: clear to auscultation prashanth, unlabored Cardiovascular exam: PRESENT: RRR Vascular exam: PRESENT: normal capillary refill GI/Abdominal exam: PRESENT: ascites, other Additonal comments: SHIRA with serosanguinous output. N/V likely related to dilaudid wich is stopped and percocet he states works well-so ordered. Zofran ordered as well. Rectal exam: PRESENT: deferred Extremities exam: PRESENT: full ROM Musculoskeletal exam: PRESENT: ambulatory Neurological exam: PRESENT: alert, oriented to person, oriented to place, oriented to time, oriented to situation Skin exam: PRESENT: normal color Results Laboratory Results: 02/19/19 11:54 02/19/19 11:54 02/19/19 02/19/19 11:54 11:54 WBC 9.3 RBC 4.77 Hgb 13.9 Hct 42.0 MCV 88 MCH 29.0 MCHC 33.0 RDW 15.1 H Plt Count 194 Seg Neutrophils % 79.9 H Sodium 139.1 Potassium 4.1 Chloride 107 Carbon Dioxide 24 Anion Gap 8 BUN 13 Creatinine 0.64 Est GFR ( Amer) > 60 Glucose 272 H Calcium 8.3 L Total Bilirubin 0.8 AST 59 Alkaline Phosphatase 74 Total Protein 7.1 Albumin 3.6 Impressions: Chest X-Ray 02/18/19 00:00 IMPRESSION: Bilateral upper lung pneumonia. Endotracheal and nasogastric tubes in appropriate position. Abdomen/Pelvis CT 02/18/19 08:43 IMPRESSION: 1. MILD INFLAMMATORY CHANGES INVOLVING THE APPENDIX SUSPICIOUS FOR EARLY APPENDICITIS. NO EVIDENCE OF ABSCESS OR PERFORATION. 2. COLONIC DIVERTICULOSIS. NO CT FINDINGS OF DIVERTICULITIS. 3. MARKED DIFFUSE FATTY INFILTRATION OF THE LIVER. 4. NO OTHER SIGNIFICANT OR ACUTE FINDING IN THE ABDOMEN OR PELVIS ON CT SCAN WITH IV CONTRAST. Assessment & Plan - Diagnosis (1) Appendicitis Qualifiers: Qualified Code(s): K35.890 - Other acute appendicitis without perforation or gangrene; K35.89 - Other acute appendicitis Is this a current diagnosis for this admission?: Yes Plan: Resolved. When less nauseous reg diet per surgery and if stomach has settled question discharge. (2) DM type 2 (diabetes mellitus, type 2) Qualifiers: Qualified Code(s): E11.9 - Type 2 diabetes mellitus without complications Is this a current diagnosis for this admission?: Yes Plan: Under reasonable control. - Time Time Spent with patient: 15-24 minutes Medications reviewed and adjusted accordingly: Yes Anticipated discharge: Home Within: within 24 hours - Inpatient Certification Based on my medical assessment, after consideration of the patient's comorbidities, presenting symptoms, or acuity I expect that the services needed warrant INPATIENT care.: Yes I certify that my determination is in accordance with my understanding of Medicare's requirements for reasonable and necessary INPATIENT services [42 CFR 412.3e].: Yes Medical Necessity: Failure to Improve With Outpatient Therapy, Need for Pain Control
[2019-02-20] MEDS: OXYCODONE-ACETAMINOPHEN 5-325 MG TABLET PO PRN ×3 (08:21→22:51)
[2019-02-20] MEDS: ONDANSETRON HCL INJ/PF 4 MG/2 ML SDV IV PRN ×2 (08:22→12:08)
[2019-02-20] MEDS: LISINOPRIL 10 MG TABLET PO SCH (09:40)
[2019-02-20] MEDS: DULOXETINE HCL 30 MG CAPSULE.DR PO SCH (09:41)
[2019-02-20] MEDS: SITAGLIPTIN PHOSPHATE 50 MG TABLET PO SCH (09:42)
[2019-02-20] MEDS ORDERED: ENOXAPARIN SODIUM INJ 40 MG/0.4 ML DISP.SYRIN SUBCUT SCH (10:00)
[2019-02-20] MEDS ORDERED: INSULIN LISPRO 100 UNIT/ML 3 ML VIAL SUBCUT SCH (22:00)
[2019-02-21] MEDS: PIPERACILLIN SODIUM/TAZOBACTAM 3.375 GM in NORMAL SALINE 100 ML IV SCH (00:20)
[2019-02-21] MEDS: OXYCODONE-ACETAMINOPHEN 5-325 MG TABLET PO PRN (03:20)
[2019-02-21 07:32] VITALS: BP 120/68
--- NOTE | 2019-02-21 08:25 | PDOC DISCHARGE SUMMARY ---
General - Admit/Disc Date/PCP Admission Date/Primary Care Provider: 02/19/19 11:20 ALEX MISHRA Discharge Date: 02/21/19 - Discharge Diagnosis Final Diagnosis: Acute appendicitis - Assessment Summary: Admitted on 02/19/19 for an acute appendicitis verified by CT scan,Underwent Laparoscopic appendectomy on 02/18/19. Needed to be admitted to ICU post op because unable to be extubated, Extubated the next day and gradually i,proved. Tolerating regular diet and passing flatus on the day of discharge 02/21/19. - Additional Information Resuscitation Status: Full Code Discharge Diet: Regular Discharge Activity: No Lifting Over 10 Pounds Referrals: KAILA LOPEZ FNP-C [Primary Care Provider] - Follow up as needed Prescriptions: Oxycodone HCl/Acetaminophen [Percocet 5-325 mg Tablet] 1 tab PO Q4HP PRN #10 tablet PRN Reason: Home Medications: Metformin HCl 1,000 mg PO BIDBS 02/18/19 Lisinopril [Prinivil 10 mg Tablet] 30 mg PO DAILY tablet 02/21/19 Oxycodone HCl/Acetaminophen [Percocet 5-325 mg Tablet] 1 tab PO Q4HP PRN #10 tablet 02/21/19 History of Present Illiness History of Present Illness: ZAHIDA MARTIN is a 54 year old male morbidly obese with type 2 diabetes mellitus complain of lower abdominal pains 2 days ago associated nausea. Denies any chills or fever. Pains localized on the right lower quadrant yesterday and went to ED today where a CAT scan of the abdomen revealed early acute appendicitis. He had a previous colonoscopy in the past with its he said polyps were removed and has diverticulosis. No diarrhea no constipation. Hospital Course Hospital Course: Admitted for Acute Appendicitis verified on CT scan on 02/19/19. Underwent a difficult lap appendectomy primarily because of his morbid obesity on admission done by Dr Ramos. Needed to be in ICU for inability nto extubate post op. Extubated the next day and gradually increased po intake until discharge on 02/21/19 when he is able to tolerate regular diet. Physical Exam Vital Signs: Temp Pulse Resp BP Pulse Ox 98.0 F 77 16 120/68 87 L 02/21/19 07:31 02/21/19 07:31 02/21/19 07:31 02/21/19 07:31 02/21/19 07:31 Intake & Output 02/20/19 02/21/19 02/22/19 06:59 06:59 06:59 Intake Total 1460 540 Output Total 791 639 Balance 865 -440 Weight 183.4 kg 181.3 kg Results Laboratory Results: WBC 9.3 10^3/uL (4.0-10.5) 02/19/19 11:54 RBC 4.77 10^6/uL (4.35-5.55) 02/19/19 11:54 Hgb 13.9 g/dL (13.5-17.0) 02/19/19 11:54 Hct 42.0 % (37.9-51.0) 02/19/19 11:54 MCV 88 fl (80-97) 02/19/19 11:54 MCH 29.0 pg (27.0-33.4) 02/19/19 11:54 MCHC 33.0 g/dL (32.0-36.0) 02/19/19 11:54 RDW 15.1 % (11.5-14.0) H 02/19/19 11:54 Plt Count 194 10^3/uL (150-450) 02/19/19 11:54 Lymph % (Auto) 10.7 % (13-45) L 02/19/19 11:54 Luna % (Auto) 8.1 % (3-13) 02/19/19 11:54 Eos % (Auto) 1.0 % (0-6) 02/19/19 11:54 Baso % (Auto) 0.3 % (0-2) 02/19/19 11:54 Absolute Neuts (auto) 7.5 10^3/uL (1.7-8.2) 02/19/19 11:54 Absolute Lymphs (auto) 1.0 10^3/uL (0.5-4.7) 02/19/19 11:54 Absolute Monos (auto) 0.8 10^3/uL (0.1-1.4) 02/19/19 11:54 Absolute Eos (auto) 0.1 10^3/uL (0.0-0.6) 02/19/19 11:54 Absolute Basos (auto) 0.0 10^3/uL (0.0-0.2) 02/19/19 11:54 Seg Neutrophils % 79.9 % (42-78) H 02/19/19 11:54 Carbonic Acid 1.15 mmol/L (1.05-1.35) 02/19/19 05:24 HCO3/H2CO3 Ratio 21:1 02/19/19 05:24 ABG pH 7.43 (7.35-7.45) 02/19/19 05:24 ABG pCO2 38.2 mmHg (35-45) 02/19/19 05:24 ABG pO2 79.7 mmHg (80-100) L 02/19/19 05:24 ABG HCO3 24.7 mmol/L (20-24) H 02/19/19 05:24 ABG Total CO2 25.9 mmol/L (23-27) 02/19/19 05:24 ABG O2 Saturation 96.1 % (94-98) 02/19/19 05:24 ABG Base Excess 0.6 mmol/L 02/19/19 05:24 FiO2 40% 02/19/19 05:24 Sodium 139.1 mmol/L (137-145) 02/19/19 11:54 Potassium 4.1 mmol/L (3.6-5.0) 02/19/19 11:54 Chloride 107 mmol/L (98-107) 02/19/19 11:54 Carbon Dioxide 24 mmol/L (22-30) 02/19/19 11:54 Anion Gap 8 (5-19) 02/19/19 11:54 BUN 13 mg/dL (7-20) 02/19/19 11:54 Creatinine 0.64 mg/dL (0.52-1.25) 02/19/19 11:54 Est GFR ( Amer) > 60 (>60) 02/19/19 11:54 Est GFR (MDRD) Non-Af > 60 (>60) 02/19/19 11:54 Glucose 272 mg/dL (75-110) H 02/19/19 11:54 POC Glucose 194 mg/dL (70-110) H 02/20/19 20:24 Calcium 8.3 mg/dL (8.4-10.2) L 02/19/19 11:54 Total Bilirubin 0.8 mg/dL (0.2-1.3) 02/19/19 11:54 Direct Bilirubin 0.4 mg/dL (0.0-0.4) 02/19/19 11:54 Neonat Total Bilirubin Not Reportable 02/19/19 11:54 Neonat Direct Bilirubin Not Reportable 02/19/19 11:54 Neonat Indirect Bili Not Reportable 02/19/19 11:54 AST 59 U/L (17-59) 02/19/19 11:54 ALT 49 U/L (<50) 02/19/19 11:54 Alkaline Phosphatase 74 U/L (38-126) 02/19/19 11:54 Total Protein 7.1 g/dL (6.3-8.2) 02/19/19 11:54 Albumin 3.6 g/dL (3.5-5.0) 02/19/19 11:54 Lipase 96.3 U/L (23-300) 02/18/19 07:58 Urine Color DARK YELLOW 02/18/19 07:58 Urine Appearance SLIGHTLY-CLOUDY 02/18/19 07:58 Urine pH 5.0 (5.0-9.0) 02/18/19 07:58 Ur Specific [place] 1.030 02/18/19 07:58 Urine Protein 100 mg/dL (NEGATIVE) H 02/18/19 07:58 Urine Glucose (UA) >=500 mg/dL (NEGATIVE) H 02/18/19 07:58 Urine Ketones TRACE mg/dL (NEGATIVE) H 02/18/19 07:58 Urine Blood NEGATIVE (NEGATIVE) 02/18/19 07:58 Urine Nitrite NEGATIVE (NEGATIVE) 02/18/19 07:58 Urine Bilirubin NEGATIVE (NEGATIVE) 02/18/19 07:58 Urine Urobilinogen 2.0 mg/dL (<2.0) H 02/18/19 07:58 Ur Leukocyte Esterase NEGATIVE (NEGATIVE) 02/18/19 07:58 Urine WBC (Auto) 3 /HPF 02/18/19 07:58 Urine RBC (Auto) 1 /HPF 02/18/19 07:58 U Hyaline Cast (Auto) 3 /LPF 02/18/19 07:58 Squamous Epi Cells Auto 1 /HPF 02/18/19 07:58 Granular Casts (Auto) 4 /LPF 02/18/19 07:58 Urine Mucus (Auto) MANY /LPF 02/18/19 07:58 Urine Ascorbic Acid 20 (NEGATIVE) H 02/18/19 07:58 Impressions: Chest X-Ray 02/18/19 00:00 IMPRESSION: Bilateral upper lung pneumonia. Endotracheal and nasogastric tubes in appropriate position. Abdomen/Pelvis CT 02/18/19 08:43 IMPRESSION: 1. MILD INFLAMMATORY CHANGES INVOLVING THE APPENDIX SUSPICIOUS FOR EARLY APPENDICITIS. NO EVIDENCE OF ABSCESS OR PERFORATION. 2. COLONIC DIVERTICULOSIS. NO CT FINDINGS OF DIVERTICULITIS. 3. MARKED DIFFUSE FATTY INFILTRATION OF THE LIVER. 4. NO OTHER SIGNIFICANT OR ACUTE FINDING IN THE ABDOMEN OR PELVIS ON CT SCAN WITH IV CONTRAST.
--- NOTE | 2019-02-25 10:38 | PDOC DISCHARGE SUMMARY ---
General - Admit/Disc Date/PCP Admission Date/Primary Care Provider: 02/19/19 11:20 ALEX MISHRA Discharge Date: 02/21/19 - Discharge Diagnosis Final Diagnosis: Acute appendicitis Morbid Obesity - Assessment Summary: Admitted on 02/19/19 for an acute appendicitis verified by CT scan,Underwent difficult Laparoscopic appendectomy on 02/18/19 primarily due to morbd Obesity. Needed to be admitted to ICU post op because unable to be extubated, Extubated the next day and gradually i,proved. Tolerating regular diet and passing flatus on the day of discharge 02/21/19. - Additional Information Resuscitation Status: Revised discharge summary Discharge Diet: Regular Discharge Activity: No Lifting Over 10 Pounds Referrals: KAILA LOPEZ FNP-C [Primary Care Provider] - Follow up as needed Prescriptions: Oxycodone HCl/Acetaminophen [Percocet 5-325 mg Tablet] 1 tab PO Q4HP PRN #10 tablet PRN Reason: Home Medications: Metformin HCl 1,000 mg PO BIDBS 02/18/19 Lisinopril [Prinivil 10 mg Tablet] 30 mg PO DAILY tablet 02/21/19 Oxycodone HCl/Acetaminophen [Percocet 5-325 mg Tablet] 1 tab PO Q4HP PRN #10 tablet 02/21/19 Additional Information: This is a revised discharge summary History of Present Illiness History of Present Illness: ZAHIDA MARTIN is a 54 year old male morbidly obese with type 2 diabetes mellitus complain of lower abdominal pains 2 days ago associated nausea. Denies any chills or fever. Pains localized on the right lower quadrant yesterday and went to ED today where a CAT scan of the abdomen revealed early acute appendicitis. He had a previous colonoscopy in the past with its he said polyps were removed and has diverticulosis. No diarrhea no constipation. Hospital Course Hospital Course: Admitted for Acute Appendicitis verified on CT scan on 02/19/19. Underwent a difficult lap appendectomy primarily because of his morbid obesity on admission done by Dr Ramos. Needed to be in ICU for inability nto extubate post op. Extubated the next day and gradually increased po intake until discharge on 02/21/19 when he is able to tolerate regular diet. Physical Exam Vital Signs: Temp Pulse Resp BP Pulse Ox 98.0 F 77 16 120/68 87 L 02/21/19 11:09 02/21/19 11:09 02/21/19 11:09 02/21/19 11:09 02/21/19 11:09 Exam: Abdomen soft with tenderness RLQ Results Laboratory Results: WBC 9.3 10^3/uL (4.0-10.5) 02/19/19 11:54 RBC 4.77 10^6/uL (4.35-5.55) 02/19/19 11:54 Hgb 13.9 g/dL (13.5-17.0) 02/19/19 11:54 Hct 42.0 % (37.9-51.0) 02/19/19 11:54 MCV 88 fl (80-97) 02/19/19 11:54 MCH 29.0 pg (27.0-33.4) 02/19/19 11:54 MCHC 33.0 g/dL (32.0-36.0) 02/19/19 11:54 RDW 15.1 % (11.5-14.0) H 02/19/19 11:54 Plt Count 194 10^3/uL (150-450) 02/19/19 11:54 Lymph % (Auto) 10.7 % (13-45) L 02/19/19 11:54 [place] % (Auto) 8.1 % (3-13) 02/19/19 11:54 Eos % (Auto) 1.0 % (0-6) 02/19/19 11:54 Baso % (Auto) 0.3 % (0-2) 02/19/19 11:54 Absolute Neuts (auto) 7.5 10^3/uL (1.7-8.2) 02/19/19 11:54 Absolute Lymphs (auto) 1.0 10^3/uL (0.5-4.7) 02/19/19 11:54 Absolute Monos (auto) 0.8 10^3/uL (0.1-1.4) 02/19/19 11:54 Absolute Eos (auto) 0.1 10^3/uL (0.0-0.6) 02/19/19 11:54 Absolute Basos (auto) 0.0 10^3/uL (0.0-0.2) 02/19/19 11:54 Seg Neutrophils % 79.9 % (42-78) H 02/19/19 11:54 Carbonic Acid 1.15 mmol/L (1.05-1.35) 02/19/19 05:24 HCO3/H2CO3 Ratio 21:1 02/19/19 05:24 ABG pH 7.43 (7.35-7.45) 02/19/19 05:24 ABG pCO2 38.2 mmHg (35-45) 02/19/19 05:24 ABG pO2 79.7 mmHg (80-100) L 02/19/19 05:24 ABG HCO3 24.7 mmol/L (20-24) H 02/19/19 05:24 ABG Total CO2 25.9 mmol/L (23-27) 02/19/19 05:24 ABG O2 Saturation 96.1 % (94-98) 02/19/19 05:24 ABG Base Excess 0.6 mmol/L 02/19/19 05:24 FiO2 40% 02/19/19 05:24 Sodium 139.1 mmol/L (137-145) 02/19/19 11:54 Potassium 4.1 mmol/L (3.6-5.0) 02/19/19 11:54 Chloride 107 mmol/L (98-107) 02/19/19 11:54 Carbon Dioxide 24 mmol/L (22-30) 02/19/19 11:54 Anion Gap 8 (5-19) 02/19/19 11:54 BUN 13 mg/dL (7-20) 02/19/19 11:54 Creatinine 0.64 mg/dL (0.52-1.25) 02/19/19 11:54 Est GFR ( Amer) > 60 (>60) 02/19/19 11:54 Est GFR (MDRD) Non-Af > 60 (>60) 02/19/19 11:54 Glucose 272 mg/dL (75-110) H 02/19/19 11:54 POC Glucose 194 mg/dL (70-110) H 02/20/19 20:24 Calcium 8.3 mg/dL (8.4-10.2) L 02/19/19 11:54 Total Bilirubin 0.8 mg/dL (0.2-1.3) 02/19/19 11:54 Direct Bilirubin 0.4 mg/dL (0.0-0.4) 02/19/19 11:54 Neonat Total Bilirubin Not Reportable 02/19/19 11:54 Neonat Direct Bilirubin Not Reportable 02/19/19 11:54 Neonat Indirect Bili Not Reportable 02/19/19 11:54 AST 59 U/L (17-59) 02/19/19 11:54 ALT 49 U/L (<50) 02/19/19 11:54 Alkaline Phosphatase 74 U/L (38-126) 02/19/19 11:54 Total Protein 7.1 g/dL (6.3-8.2) 02/19/19 11:54 Albumin 3.6 g/dL (3.5-5.0) 02/19/19 11:54 Lipase 96.3 U/L (23-300) 02/18/19 07:58 Urine Color DARK YELLOW 02/18/19 07:58 Urine Appearance SLIGHTLY-CLOUDY 02/18/19 07:58 Urine pH 5.0 (5.0-9.0) 02/18/19 07:58 Ur Specific [place] 1.030 02/18/19 07:58 Urine Protein 100 mg/dL (NEGATIVE) H 02/18/19 07:58 Urine Glucose (UA) >=500 mg/dL (NEGATIVE) H 02/18/19 07:58 Urine Ketones TRACE mg/dL (NEGATIVE) H 02/18/19 07:58 Urine Blood NEGATIVE (NEGATIVE) 02/18/19 07:58 Urine Nitrite NEGATIVE (NEGATIVE) 02/18/19 07:58 Urine Bilirubin NEGATIVE (NEGATIVE) 02/18/19 07:58 Urine Urobilinogen 2.0 mg/dL (<2.0) H 02/18/19 07:58 Ur Leukocyte Esterase NEGATIVE (NEGATIVE) 02/18/19 07:58 Urine WBC (Auto) 3 /HPF 02/18/19 07:58 Urine RBC (Auto) 1 /HPF 02/18/19 07:58 U Hyaline Cast (Auto) 3 /LPF 02/18/19 07:58 Squamous Epi Cells Auto 1 /HPF 02/18/19 07:58 Granular Casts (Auto) 4 /LPF 02/18/19 07:58 Urine Mucus (Auto) MANY /LPF 02/18/19 07:58 Urine Ascorbic Acid 20 (NEGATIVE) H 02/18/19 07:58 Impressions: Chest X-Ray 02/18/19 00:00 IMPRESSION: Bilateral upper lung pneumonia. Endotracheal and nasogastric tubes in appropriate position. Abdomen/Pelvis CT 02/18/19 08:43 IMPRESSION: 1. MILD INFLAMMATORY CHANGES INVOLVING THE APPENDIX SUSPICIOUS FOR EARLY APPENDICITIS. NO EVIDENCE OF ABSCESS OR PERFORATION. 2. COLONIC DIVERTICULOSIS. NO CT FINDINGS OF DIVERTICULITIS. 3. MARKED DIFFUSE FATTY INFILTRATION OF THE LIVER. 4. NO OTHER SIGNIFICANT OR ACUTE FINDING IN THE ABDOMEN OR PELVIS ON CT SCAN WITH IV CONTRAST. Plan Plan of Treatment: Had lap appendectomy. Time Spent: Less than 30 Minutes
== END 2019-02-21 11:40 | disposition home or self-care (01) | DRG 342 ==
LOC: ER 07:43 → EH 10:53 → 5 16:07 → ICU 22:24 → OBSVTOIN 02-19 11:20
PROVIDERS: ADMIT Surgery; ATTEND Surgery
PROC: 0DTJ4ZZ Resection of Appendix, Percutaneous Endoscopic Approach (ICD-10-PCS; principal; 2019-02-18 13:30)
DX: K35.80 Unspecified acute appendicitis (principal); Z68.43 Body mass index [BMI] 50.0-59.9, adult; E66.01 Morbid (severe) obesity due to excess calories; E11.9 Type 2 diabetes mellitus without complications; Z86.010 Personal history of colon polyps; I10 Essential (primary) hypertension; F32.9 Major depressive disorder, single episode, unspecified; M17.10 Unilateral primary osteoarthritis, unspecified knee; Z88.5 Allergy status to narcotic agent
CPT/HCPCS: 36415; 71045; 74177; 80053; 81001; 82803; 82962; 83690; 840; 85025; 87086; 88304; 94002; 94003; 94799; 96361; 96365; 96375; 96376; 99285; J0330; J1170; J1650; J1815; J2250; J2405; J2543; J2704; J3010; J3490; J7030; J7040; J7050

== ENCOUNTER 2020-05-15 12:06 | Emergency (ER) | payer MEDICARE, MEDICAID ==
[2020-05-15] MEDS ORDERED: NORMAL SALINE 1000 ML 1,000 ML IV ONE (12:36)
[2020-05-15] MEDS ORDERED: ONDANSETRON HCL INJ/PF 4 MG/2 ML SDV IV ONE (12:36)
[2020-05-15] MEDS ORDERED: HYDROCODONE/ACETAMINOPHEN 5-325 MG TABLET PO ONE (12:38)
--- NOTE | 2020-05-15 12:40 | ER Document Report ---
ED Medical Screen (RME) - General Chief Complaint: Abdominal Pain Stated Complaint: LEFT ABDOMINAL PAIN Time Seen by Provider: 05/15/20 12:31 Primary Care Provider: KAILA LOPEZ FNP-C [Primary Care Provider] - Follow up as needed TRAVEL OUTSIDE OF THE [place] IN LAST 30 DAYS: No - HPI Notes: 05/15/20 12:38 55-year-old male with a history of insulin-dependent diabetes and diverticulitis presents to the emergency room today with sudden onset left lower quadrant abdominal pain that started around 11:00 last night, he reports that pain is getting progressively worse, 4 out of 5 with nausea. Patient states he had a normal bowel movement yesterday, no melena. Has not tried any icrt-hju-poycycm medications. Patient states he has some shortness of breath when he feels nause ous. Denies any chest pain. His last colonoscopy was 2 years ago which he states was normal. Patient states that he noticed today he was having some left upper quadrant abdominal pain with his left lower quadrant abdominal pain. Denies any testicular pain. I have greeted and performed a rapid initial assessment of this patient. A comprehensive ED assessment and evaluation of the patient, analysis of test results and completion of the medical decision making process will be conducted by additional ED providers. PHYSICAL EXAMINATION: GENERAL: Well-appearing, well-nourished and in no acute distress. HEAD: Atraumatic, normocephalic. EYES: Pupils equal round extraocular movements intact, conjunctiva are normal. NECK: Normal range of motion CV: s1, s2 regular LUNGS: No respiratory distress abd: Slight left upper quadrant tenderness on palpation with left lower quadrant tenderness on palpation. No CVA tenderness appreciated bilaterally. Musculoskeletal: Normal range of motion NEUROLOGICAL: Normal speech, normal gait. SKIN: Warm, Dry, normal turgor, no rashes or lesions noted. The patient was evaluated during a global COVID-19 pandemic and that diagnosis was suspected/considered upon their initial presentation. Their evaluation, treatment and testing was consistent with current guidelines for patients who present with complaints or symptoms and may be related to COVID-19. - Related Data Allergies/Adverse Reactions: codeine [From Tylenol-Codeine #3] Allergy (Verified 09/18/18 16:04) hydrocodone Allergy (Verified 09/18/18 16:04) Past Medical History - Social History Chew tobacco use (# tins/day): No Frequency of alcohol use: Rare Drug Abuse: Marijuana - Past Medical History Cardiac Medical History: Reports: Hx Hypertension Neurological Medical History: Reports: Hx Migraine Endocrine Medical History: Reports: Hx Diabetes Mellitus Type 2 Renal/ Medical History: Reports: Hx Testicular Torsion. Denies: Hx Peritoneal Dialysis GI Medical History: Reports: Hx Diverticulitis, Hx Gastritis, Hx Ulcer, Hx Endoscopy Musculoskeltal Medical History: Reports Hx Arthritis - KNEE, Reports Hx Musculoskeletal Deformity, Reports Hx Musculoskeletal Trauma Psychiatric Medical History: Reports: Hx Anxiety, Hx Depression Traumatic Medical History: Reports: Hx Fractures Past Surgical History: Reports: Hx Orthopedic Surgery - Surgery to right ankle foot infection left knee surgery, Hx Testicular Surgery - Testicular torsion, Other - Aspiration from pericardial effusion - Immunizations Hx Diphtheria, Pertussis, Tetanus Vaccination: Yes Physical Exam - Vital signs Vitals: Temp Pulse Resp BP Pulse Ox 98.3 F 76 20 163/105 H 97 05/15/20 12:12 05/15/20 12:12 05/15/20 12:12 05/15/20 12:12 05/15/20 12:12 Course - Vital Signs Vital signs: Temp Pulse Resp BP Pulse Ox 98.3 F 76 20 163/105 H 97 05/15/20 12:12 05/15/20 12:12 05/15/20 12:12 05/15/20 12:12 05/15/20 12:12 Doctor's Discharge - Discharge Referrals: KAILA LOPEZ FNP-C [Primary Care Provider] - Follow up as needed
[2020-05-15 13:55] LABS: ABSOLUTE EOSINOPHILS # (AUTO) 0.2 10^3/uL (0.0-0.6); ABSOLUTE LYMPHOCYTES (AUTO) 1.4 10^3/uL (0.5-4.7); ABSOLUTE MONOCYTES (AUTO) 0.6 10^3/uL (0.1-1.4); ABSOLUTE NEUT (AUTO) 7.5 10^3/uL (1.7-8.2); BASOPHILS % (AUTO) 0.3 % (0-2); EOSINOPHILS % (AUTO) 2.3 % (0-6); HEMATOCRIT 47.5 % (37.9-51.0); LYMPHOCYTES % (AUTO) 14.2 % (13-45); MEAN CORPUSCULAR HGB CONC 33.7 g/dL (32.0-36.0); MEAN CORPUSCULAR VOLUME 86 fl (80-97); MONOCYTES % (AUTO) 5.7 % (3-13); PLATELET COUNT 268 10^3/uL (150-450); RED BLOOD COUNT 5.53 10^6/uL (4.35-5.55); RED CELL DISTRIBUTION WIDTH 14.5 % (11.5-14.0); SEGMENTED NEUTROPHILS % (AUTO) 77.5 % (42-78); TOTAL CELLS COUNTED % (AUTO) 100 %; WHITE BLOOD COUNT 9.7 10^3/uL (4.0-10.5)
[2020-05-15 13:57] LABS: APPEARANCE,URINE CLEAR; BILIRUBIN,URINE NEGATIVE (NEGATIVE); COLOR,URINE YELLOW; GLUCOSE, URINE 50 mg/dL (NEGATIVE); KETONES,URINE NEGATIVE (NEGATIVE); LEUKOCYTE ESTERASE,URINE NEGATIVE (NEGATIVE); NITRITE,URINE NEGATIVE (NEGATIVE); PROTEIN,URINE NEGATIVE (NEGATIVE); URINE SPECIFIC GRAVITY 1.017; UROBILINOGEN,URINE NEGATIVE mg/dL (<2.0)
[2020-05-15 14:15] LABS: ALBUMIN 4.4 g/dL (3.5-5.0); ALKALINE PHOSPHATASE 82 U/L (38-126); ANION GAP 9 (5-19); ASPARTATE AMINO TRANSFERASE 39 U/L (17-59); BILIRUBIN,DIRECT 0.2 mg/dL (0.0-0.4); BILIRUBIN,TOTAL 0.7 mg/dL (0.2-1.3); BLOOD UREA NITROGEN 15 mg/dL (7-20); CALCIUM 10.3 mg/dL (8.4-10.2); CARBON DIOXIDE 27 mmol/L (22-30); CHLORIDE 103 mmol/L (98-107); GLUCOSE 213 mg/dL (75-110); POTASSIUM 4.6 mmol/L (3.6-5.0); TOTAL PROTEIN 8.4 g/dL (6.3-8.2)
--- NOTE | 2020-05-15 15:56 | RADIOLOGY REPORT (SQ) ---
EXAM DESCRIPTION: CT ABD/PELVIS WITH IV ORAL IMAGES COMPLETED DATE/TIME: 05/15/2020 3:39 pm REASON FOR STUDY: LUQ, LLQ abd pain since 11pm last night, +nausea COMPARISON: 02/18/2019 TECHNIQUE: CT scan of the abdomen and pelvis performed with intravenous and oral contrast using kami louie scanning technique with dynamic intravenous contrast injection. Images reviewed with lung, soft t issue, and bone windows. Reconstructed coronal and sagittal MPR images reviewed. Delayed images for e valuation of the urinary system also acquired. All images stored on PACS. All CT scanners at this facility use dose modulation, iterative reconstruction, and/or weight based d osing when appropriate to reduce radiation dose to as low as reasonably achievable (ALARA). [facility]: Dose Right [facility]: CareDose [facility]: Dose Right [facility]: Teradose 4D [facility]: coin4ce CONTRAST TYPE AND DOSE: contrast/concentration: Isovue 350.00 mmol/ml; Total Contrast Delivered: 100 .0 ml; Total Saline Delivered: 40.0 ml RENAL FUNCTION: GFR > 60. RADIATION DOSE: CT Rad equipment meets quality standard of care and radiation dose reduction techniq ues were employed. CTDIvol: 19.2 - 21.1 mGy. DLP: 2460 mGy-cm. . LIMITATIONS: None. FINDINGS: LOWER CHEST: No significant findings. No nodules or infiltrates. LIVER: Normal size. Fatty change. No masses. No dilated ducts. SPLEEN: Normal size. No focal lesions. PANCREAS: No masses. No significant calcifications. No adjacent inflammation or peripancreatic fluid collections. Pancreatic duct not dilated. GALLBLADDER: No identified stones by CT criteria. No inflammatory changes to suggest cholecystitis. ADRENAL GLANDS: No significant masses or asymmetry. RIGHT KIDNEY AND URETER: No solid masses. No significant calcifications. No hydronephrosis or hyd roureter. LEFT KIDNEY AND URETER: No solid masses. No significant calcifications. No hydronephrosis or hydr oureter. AORTA AND VESSELS: No aneurysm. No dissection. Renal arteries, SMA, celiac without stenosis. RETROPERITONEUM: No retroperitoneal adenopathy, hemorrhage or masses. BOWEL AND PERITONEAL CAVITY: Diverticulosis. No obstruction. No visualized masses. No free fluid. N o inflammatory changes or thickening of bowel wall. APPENDIX: Surgically absent. PELVIS: No significant masses. Normal bladder. No free fluid. ABDOMINAL WALL: Small fat containing umbilical hernia. BONES: No significant or acute findings. OTHER: No other significant finding. IMPRESSION: No acute findings. Diverticulosis without evidence of diverticulitis. TECHNICAL DOCUMENTATION: JOB ID: [id number] Quality ID # [id number]: Final reports with documentation of one or more dose reduction techniques (e.g., Au tomated exposure control, adjustment of the mA and/or kV according to patient size, use of iterative reconstruction technique) 2010 [employer]- All Rights Reserved Reading location - IP/workstation name: [email or web address]
[2020-05-15] MEDS ORDERED: DICYCLOMINE HCL 20 MG TABLET PO ONE (16:51)
--- NOTE | 2020-05-15 16:57 | ER Document Report ---
ED GI/ - General Chief Complaint: Abdominal Pain Stated Complaint: LEFT ABDOMINAL PAIN Time Seen by Provider: 05/15/20 12:31 Primary Care Provider: KAILA LOPEZ FNP-C [NURSE PRACTITIONER] - Follow up as needed Notes: Patient is a 55-year-old male who presents the emergency department with a chief complaint of left lower quadrant abdominal pain. States that the pain started around 11:00 last night. States that it feels similar to when he had diverticulitis years ago. Patient did feel nauseous earlier, but has not vomited. Patient had colonoscopy "years ago" and this was "normal." He does not know what GI doctor he saw. TRAVEL OUTSIDE OF THE [place] IN LAST 30 DAYS: No - Related Data Allergies/Adverse Reactions: codeine [From Tylenol-Codeine #3] Allergy (Verified 09/18/18 16:04) hydrocodone Allergy (Verified 09/18/18 16:04) Past Medical History - Social History Smoking Status: Never Smoker Chew tobacco use (# tins/day): No Frequency of alcohol use: Rare Drug Abuse: Marijuana Family History: Reviewed & Not Pertinent, Arthritis, CAD, COPD, CVA, Malignancy - Past Medical History Cardiac Medical History: Reports: Hx Hypertension Neurological Medical History: Reports: Hx Migraine Endocrine Medical History: Reports: Hx Diabetes Mellitus Type 2 Renal/ Medical History: Reports: Hx Testicular Torsion. Denies: Hx Peritoneal Dialysis GI Medical History: Reports: Hx Diverticulitis, Hx Gastritis, Hx Ulcer, Hx Endoscopy Musculoskeletal Medical History: Reports Hx Arthritis - KNEE, Reports Hx Mus culoskeletal Deformity, Reports Hx Musculoskeletal Trauma Psychiatric Medical History: Reports: Hx Anxiety, Hx Depression Traumatic Medical History: Reports: Hx Fractures Past Surgical History: Reports: Hx Orthopedic Surgery - Surgery to right ankle foot infection left knee surgery, Hx Testicular Surgery - Testicular torsion, Other - Aspiration from pericardial effusion - Immunizations Hx Diphtheria, Pertussis, Tetanus Vaccination: Yes Review of Systems - Review of Systems Notes: REVIEW OF SYSTEMS: CONSTITUTIONAL : Denies recent illness. Denies recent unintentional weight loss. Denies fever, chills, or sweats. EENT: Denies eye, ear, throat, or mouth pain, discharge, or symptoms. Denies nasal or sinus congestion. CARDIOVASCULAR: Denies chest pain. RESPIRATORY: Denies shortness of breath, cough, congestion, difficulty breathing, or wheezing. GASTROINTESTINAL: See HPI. GENITOURINARY: Denies difficulty urinating, burning, blood in urine, urgency or frequency. MUSCULOSKELETAL: Denies neck and back pain. Denies joint pain or swelling. SKIN: Denies rash, itchiness, or lesions HEMATOLOGIC : Denies easy bruising or bleeding. LYMPHATIC: Denies swollen, painful, enlarged glands. NEUROLOGICAL: Denies no numbness or tingling denies weakness. Denies headache. Denies altered mental status. Denies alteration in speech. PSYCHIATRIC: Denies stress, anxiety, alteration in sleep patterns, or depression. All other systems reviewed and negative. Physical Exam - Vital signs Vitals: Temp Pulse Resp BP Pulse Ox 98.3 F 76 20 163/105 H 97 05/15/20 12:12 05/15/20 12:12 05/15/20 12:12 05/15/20 12:12 05/15/20 12:12 - Notes Notes: PHYSICAL EXAMINATION: GENERAL: Appears well, healthy, well-nourished, no acute distress. HEAD: Normocephalic, atraumatic. EYES: PERRL, conjunctiva normal, all extraocular movements intact, sclera nonicteric ENT: Moist mucous membranes. NECK: Supple, no noticeable swelling, redness, rash. Normal range of motion. LUNGS: Equal breath sounds bilaterally and clear to auscultation. No wheezes rales or rhonchi. CARDIOVASCULAR: S1-S2, regular rate, regular rhythm. Radial pulses 2+, normal. ABDOMEN: Normoactive bowel sounds. Soft, mildly tender left lower abdomen. No guarding, no rebound tenderness, and no masses palpated. EXTREMITIES: Normal strength and range of motion, no pitting or edema. No cyanosis. NEUROLOGICAL: Moves all extremities upon command. Strength 5/5 in all extremities. PSYCH: Normal mood, normal affect. SKIN: Warm, dry. No rash, lesions, ulcerations noted. Normal skin turgor. Course - Re-evaluation Re-evalutation: 05/15/20 16:53 Hematology is unremarkable. Blood sugar is 213. Other chemistries are unremarkable. LFTs are normal. Lipase is 61. CT of the abdomen pelvis with IV and oral contrast shows that the patient has diverticulosis without diverticulitis. Discussed this with the patient. He agrees to follow-up with the GI doctor. Follow-up precautions were given. Verbal discharge instructions were given to the patient. They verbalized understanding. They are stable for discharge. - Vital Signs Vital signs: Temp Pulse Resp BP Pulse Ox 98.3 F 76 20 163/105 H 97 05/15/20 12:12 05/15/20 12:12 05/15/20 12:12 05/15/20 12:12 05/15/20 12:12 - Laboratory Results Result Diagrams: 05/15/20 12:58 05/15/20 12:58 Laboratory Results Interpreted: 05/15/20 05/15/20 05/15/20 12:58 12:58 12:58 RDW 14.5 H Glucose 213 H Calcium 10.3 H Total Protein 8.4 H Urine Glucose (UA) 50 H Urine Blood MODERATE H Critical Laboratory Results Reviewed: No Critical Results - Radiology Results Critical Radiology Results Reviewed: No Critical Results Discharge - Discharge Clinical Impression: Diverticulosis Abdominal pain Qualifiers: Abdominal location: left lower quadrant Qualified Code(s): R10.32 - Left lower quadrant pain Condition: Stable Disposition: HOME, SELF-CARE Additional Instructions: Your CT scan shows that you have diverticulosis, but there was no diverticulitis. Please follow-up with your GI doctor. Take the abdominal pain medication as prescribed. You could also take the nausea medication if needed. Prescriptions: Dicyclomine HCl [Bentyl 20 mg Tablet] 20 mg PO QID PRN #30 tablet PRN Reason: Ondansetron [Zofran Odt 4 mg Tablet] 1 - 2 tab PO Q4H PRN #15 tab.rapdis PRN Reason: For Nausea/Vomiting Referrals: KAILA LOPEZ FNP-C [NURSE PRACTITIONER] - Follow up as needed NAVI GALLEGOS MD [ACTIVE STAFF] - Follow up in 3-5 days JULIA MARTÍNEZ MD [ACTIVE STAFF] - Follow up in 3-5 days ISI COX MD [ACTIVE STAFF] - Follow up in 3-5 days
[2020-05-15 17:25] VITALS: BP 169/98
== END 2020-05-15 17:25 | disposition home or self-care (01) ==
LOC: ER 12:06
DX: N20.0 Calculus of kidney (principal); K57.90 Diverticulosis of intestine, part unspecified, without perforation or abscess without bleeding; R10.32 Left lower quadrant pain; I10 Essential (primary) hypertension; E11.9 Type 2 diabetes mellitus without complications
CPT/HCPCS: 99285; 96361; 96374; 36415; 83690; 85025; 80053; 81001; 74177; A9270 ×2; J2405; J7030; J3490